=== PATIENT | male | born 1945 | race Caucasian/White ===

== ENCOUNTER 2017-07-17 13:31 | Emergency (ER) | payer MEDICARE, SELFPAY | END 2017-07-17 14:53 | disposition home or self-care (01) | PROVIDERS: Family Provider Family Medicine | DX: J06.9 Acute upper respiratory infection, unspecified (principal); Z87.891 Personal history of nicotine dependence; E11.9 Type 2 diabetes mellitus without complications | CPT/HCPCS: 87804 ==

== ENCOUNTER 2017-07-23 15:22 | Emergency (ER) | payer MEDICARE, SELFPAY ==
[2017-07-23 15:35] VITALS: BP 136/70; PULSE 69; RESP 18; TEMP 36.8; O2SAT 94; BMI 28.7
[2017-07-23 16:32] LABS: Basophils # 0.1 K/mm3 (0-0.2); Basophils % 0.8 % (0.1-2.0); Eosinophils # 0.3 K/mm3 (0.0-0.4); Eosinophils % 2.1 % (0.1-12.0); Hematocrit 52.3 % (42.0-52.0); Hemoglobin 16.6 g/dL (14.1-18.0); Lymphocytes # 2.4 K/mm3 (0.7-4.5); Lymphocytes % 15.4 K/mm3 (10-50); Mean Corpuscular HGB Conc 31.7 g/dL (31.8-35.4); Mean Corpuscular Hemoglobin 29.6 pg (27.0-31.2); Mean Corpuscular Volume 93.4 fl (80-94); Mean Platelet Volume 8.6 fl (7.4-10.4); Monocytes # 1.3 K/mm3 (0.1-1.0); Neutrophils # 11.4 K/mm3 (1.8-7.8); Neutrophils % 73.6 % (37.0-80.0); Platelet Count 284 K/mm3 (142-424); Red Blood Count 5.61 M/mm3 (4.60-6.20); Red Cell Distribution Width 13.8 % (11.5-17.5); White Blood Count 15.5 K/mm3 (4.8-10.8)
[2017-07-23 16:37] LABS: MANUAL DIFFERENTIAL MANUAL DIFFERENTIAL (MANUAL DIFF)
[2017-07-23 16:39] LABS: Anion Gap 12.2 mEq/L (5-15); Blood Urea Nitrogen 19 mg/dL (7-18); Carbon Dioxide 26 mmol/L (21.0-32.0); Chloride 106 mmol/L (98-107); Creatinine Clearance Estimated 74 mL/min (0-300); Creatinine,Serum 1.13 mg/dL (0.70-1.30); Estimated Glomerular Filt Rate > 60 ml/min (>60); GFR (African American) > 60 ML/MIN (>60); Glucose 89 mg/dL (74-106); Potassium 4.2 mmoL/L (3.5-5.1); Sodium 140 mmol/L (136-145)
[2017-07-23 16:41] VITALS: BP 128/74; PULSE 64; RESP 18; O2SAT 94
[2017-07-23 16:54] LABS: Lactic Acid 0.7 mmol/L (0.4-2.0)
[2017-07-23 16:58] LABS: Eosinophils % 2 % (0-3); Lymphocytes % 14 % (10-50); Monocytes % 5 % (2-9); Neutrophils % 70 % (42-76); Platelet Estimate Normal; RBC Morphology Normal; Total Cells Counted 100
--- NOTE | 2017-07-23 17:03 | HMH.EDGENADL ---
ED Disposition Clinical Impression: Gastroenteritis Disposition: Home, Self-Care Condition on Discharge: Fair Instructions: DI for Diarrhea and Traveler's Diarrhea -- Child, DI for Nausea -- Adult, DI for Nausea -- Child Additional Instructions: Advised to stay on just clear liquids for the next 24 to 48 hours Referrals: Neal Nicole MD [Primary Care Provider] - Time of Disposition: 20:39 - Critical Care Critical Care Time: No Attestation: On 07/23/17, the high probability of a clinically significant, sudden or life threatening deterioration of the following system(s) required my full and direct attention, intervention and personal management. The time I documented below is in addition to time spent performing reported procedures but includes the following listed in this critical care notation. Medical Decision Making - Medical Records Medical records reviewed: Yes: I reviewed the patient's medical records. Vital Signs: 07/23/17 15:35 07/23/17 16:41 07/23/17 19:33 Temperature 98.3 F Temperature Source Oral Pulse Rate [Brachial] 69 64 78 Respiratory Rate 18 18 18 Blood Pressure [Right Arm] 136/70 128/74 134/66 Blood Pressure Mean [Right Arm] 92 92 88 Blood Pressure Source [Right Arm] Automatic Cuff Automatic Cuff Automatic Cuff Blood Pressure Position [Right Arm] Supine Sitting Sitting 02 Sat by Pulse Oximetry 94 L 94 L 92 L Oxygen Delivery Method Room Air Room Air Room Air - Lab Data Lab results reviewed: Yes: I reviewed the patient's lab results. Lab Results 07/23/17 16:13: Lactic Acid 0.7 07/23/17 16:15: WBC 15.5 H, RBC 5.61, Hgb 16.6, Hct 52.3 H, MCV 93.4, MCH 29.6, MCHC 31.7 L, RDW 13.8, Plt Count 284, MPV 8.6, Neut % (Auto) 73.6, Lymph % (Auto) 15.4, [place] % (Auto) 8.0, Eos % (Auto) 2.1, Baso % (Auto) 0.8, Neut # (Auto) 11.4 H, Lymph # (Auto) 2.4, [place] # (Auto) 1.3 H, Eos # (Auto) 0.3, Baso # (Auto) 0.1, Total Counted 100, Neutrophils % (Manual) 70, Lymphocytes % (Manual) 14, Atypical Lymphs % 9.0, Monocytes % (Manual) 5, Eosinophils % (Manual) 2, Platelet Estimate Normal, RBC Morphology Normal 07/23/17 16:15: Sodium 140, Potassium 4.2, Chloride 106, Carbon Dioxide 26, Anion Gap 12.2, BUN 19 H, Creatinine 1.13, Estimated Creat Clear 74, Estimated GFR > 60, Est GFR ( Amer) > 60, Glucose 89 07/23/17 16:15: Total Bilirubin 0.3, Direct Bilirubin 0.1, AST 21, ALT 29, Alkaline Phosphatase 104, Total Protein 6.3 L, Albumin 3.2 L 07/23/17 17:30: Stl Aeromonas (PCR) Not detected, Stl C. cayetanensis PCR Not detected, Stool Rotavirus (PCR) Not detected, Stl Adenov F 40/41 PCR Not detected, Stool Astrovirus (PCR) Not detected, Stool Cryptosporidium PCR Not detected, Stl E.coli Shiga Tox PCR Not detected, Stool E coli O157 PCR Not detected, Stl Enterotoxigenic E PCR Not detected, Stool EPEC (PCR) Not detected, Stool EAEC (PCR) Not detected, Stl E. histolytica PCR Not detected, Stool Giardia Lamblia PCR Not detected, Stool Sapovirus (PCR) Detected A, Stl P. shigelloides PCR Not detected, Stl Shigella/EIEC PCR Not detected, St Y.enterocolitica PCR Not detected, Stool Vibrio (PCR) Not detected, Stl Vibrio cholerae PCR Not detected, Stl Norovirus GI/GII PCR Not detected, Campylobacter (PCR) Not detected, C. difficile (PCR) Not detected, Salmonella (PCR) Not detected Result diagrams: 07/23/17 16:15 07/23/17 16:15 Orders (Tests/Meds): ED MEDICATIONS Generic Name Dose Route Start Last Admin Trade Name Freq PRN Reason Stop Dose Admin Sodium Chloride 1,000 mls @ 500 mls/hr 07/23/17 17:15 07/23/17 17:18 Sod Chloride 0.9% 1000ml Bag IV 08/22/17 17:14 500 mls/hr .Q2H NAZ Administration Sodium Chloride 10 ml 07/23/17 15:56 Saline Flush 10ml Syringe IV 08/22/17 15:55 NEEDED PRN Maintain IV Site Discontinued Medications Generic Name Dose Route Start Last Admin Trade Name Freq PRN Reason Stop Dose Admin Ondansetron HCl 4 mg 07/23/17 17:09 07/23/17 17:33 Zofran 4mg
--- NOTE | 2017-07-23 17:07 | ED_ITS ---
ED Disposition Clinical Impression: Gastroenteritis Disposition: Home, Self-Care Condition on Discharge: Fair Instructions: DI for Diarrhea and Traveler's Diarrhea -- Child, DI for Nausea - - Adult, DI for Nausea -- Child Additional Instructions: Advised to stay on just clear liquids for the next 24 to 48 hours Referrals: Neal Nicole MD [Primary Care Provider] - Time of Disposition: 20:39 - Critical Care Critical Care Time: No Attestation: On 07/23/17, the high probability of a clinically significant, sudden or life threatening deterioration of the following system(s) required my full and direct attention, intervention and personal management. The time I documented below is in addition to time spent performing reported procedures but includes the following listed in this critical care notation. Medical Decision Making - Medical Records Medical records reviewed: Yes: I reviewed the patient's medical records. Vital Signs: 07/23/17 15:35 07/23/17 16:41 07/23/17 19:33 Temperature 98.3 F Temperature Source Oral Pulse Rate [Brachial] 69 64 78 Respiratory Rate 18 18 18 Blood Pressure [Right Arm] 136/70 128/74 134/66 Blood Pressure Mean [Right Arm] 92 92 88 Blood Pressure Source [Right Arm] Automatic Cuff Automatic Cuff Automatic Cuff Blood Pressure Position [Right Arm] Supine Sitting Sitting 02 Sat by Pulse Oximetry 94 L 94 L 92 L Oxygen Delivery Method Room Air Room Air Room Air - Lab Data Lab results reviewed: Yes: I reviewed the patient's lab results. Lab Results 07/23/17 16:13: Lactic Acid 0.7 07/23/17 16:15: WBC 15.5 H, RBC 5.61, Hgb 16.6, Hct 52.3 H, MCV 93.4, MCH 29.6, MCHC 31.7 L, RDW 13.8, Plt Count 284, MPV 8.6, Neut % (Auto) 73.6, Lymph % (Auto ) 15.4, [place] % (Auto) 8.0, Eos % (Auto) 2.1, Baso % (Auto) 0.8, Neut # (Auto) 11.4 H, Lymph # (Auto) 2.4, [place] # (Auto) 1.3 H, Eos # (Auto) 0.3, Baso # (Auto ) 0.1, Total Counted 100, Neutrophils % (Manual) 70, Lymphocytes % (Manual) 14, Atypical Lymphs % 9.0, Monocytes % (Manual) 5, Eosinophils % (Manual) 2, Platelet Estimate Normal, RBC Morphology Normal 07/23/17 16:15: Sodium 140, Potassium 4.2, Chloride 106, Carbon Dioxide 26, Anion Gap 12.2, BUN 19 H, Creatinine 1.13, Estimated Creat Clear 74, Estimated GFR > 60, Est GFR ( Amer) > 60, Glucose 89 07/23/17 16:15: Total Bilirubin 0.3, Direct Bilirubin 0.1, AST 21, ALT 29, Alkaline Phosphatase 104, Total Protein 6.3 L, Albumin 3.2 L 07/23/17 17:30: Stl Aeromonas (PCR) Not detected, Stl C. cayetanensis PCR Not detected, Stool Rotavirus (PCR) Not detected, Stl Adenov F 40/41 PCR Not detected, Stool Astrovirus (PCR) Not detected, Stool Cryptosporidium PCR Not detected, Stl E.coli Shiga Tox PCR Not detected, Stool E coli O157 PCR Not detected, Stl Enterotoxigenic E PCR Not detected, Stool EPEC (PCR) Not detected , Stool EAEC (PCR) Not detected, Stl E. histolytica PCR Not detected, Stool Giardia Lamblia PCR Not detected, Stool Sapovirus (PCR) Detected A, Stl P. shigelloides PCR Not detected, Stl Shigella/EIEC PCR Not detected, St Y.enterocolitica PCR Not detected, Stool Vibrio (PCR) Not detected, Stl Vibrio cholerae PCR Not detected, Stl Norovirus GI/GII PCR Not detected, Campylobacter (PCR) Not detected, C. difficile (PCR) Not detected, Salmonella (PCR) Not detected Result diagrams: 07/23/17 16:15 07/23/17 16:15 Orders (Tests/Meds): ED MEDICATIONS Generic Name Dose Route Start Last Admin Trade Name Freq PRN Reason Stop Dose Admin Sodium Chloride 1,
[2017-07-23 17:42] LABS: Adenovirus F 40/41, stool Not Detected (NotDetected); Astrovirus Not Detected (NotDetected); Campylobacter Not Detected (NotDetected); Clostridium Difficile A/B, PCR Not Detected (NotDetected); Cryptosporidium Not Detected (NotDetected); Cyclospora Cayetanesis Not Detected (NotDetected); Entamoeba histolytica Not Detected (NotDetected); Enteroaggregative E coli Not Detected (NotDetected); Enteropathogenic E coli Not Detected (NotDetected); Enterotoxigenic E coli Not Detected (NotDetected); Giardia lamblia Not Detected (NotDetected); Norovirus Not Detected (NotDetected); Plesimonas Shigalloides, PCR Not Detected (NotDetected); Rotavirus A Not Detected (NotDetected); Salmonella, PCR Not Detected (NotDetected); Shiga-like toxin E coli Not Detected (NotDetected); Shigella Enterovasive E coli Not Detected (NotDetected); Vibrio Cholerae Not Detected (NotDetected); Vibrio, PCR Not Detected (NotDetected); Yersinia Entercolitica, PCR Not Detected (NotDetected)
[2017-07-23 17:52] LABS: Alanine Aminotransferase 29 U/L (12-78); Albumin Level 3.2 gm/dL (3.4-5.0); Alkaline Phosphatase 104 U/L (46-116); Aspartate Amino Transferase 21 U/L (15-37); Bilirubin,Direct 0.1 mg/dL (0.0-0.2); Bilirubin,Total 0.3 mg/dL (0.2-1.0); Total Protein,Serum 6.3 gm/dL (6.4-8.2)
[2017-07-23 19:33] VITALS: BP 134/66; PULSE 78; RESP 18; O2SAT 92
[2017-07-23 19:34] LABS: Sapovirus Detected (NotDetected)
[2017-07-23 21:25] VITALS: BP 128/74; PULSE 66; RESP 20; O2SAT 95
== END 2017-07-23 21:29 | disposition home or self-care (01) ==
PROVIDERS: Emergency Provider General Practice; Family Provider Family Medicine; PCP Family Medicine
DX: A08.4 Viral intestinal infection, unspecified (principal); E11.9 Type 2 diabetes mellitus without complications; Z79.84 Long term (current) use of oral hypoglycemic drugs
CPT/HCPCS: 80048; 80076; 83605; 85007; 85025; 87040; 87507; 96360; 96361; 96365; 96375; 99284; J2405

== ENCOUNTER → 2017-07-26 16:16 | Outpatient (CLI) | payer MEDICARE, SELFPAY ==
--- NOTE | 2017-07-26 16:31 | XR_ITS ---
XR chest 2V HISTORY: ITS.REASON: BRONCHITIS ORDERING PHYSICIAN: Neal Nicole MD PATIENT AGE: 72 years COMPARISON: None 191 FINDINGS: Normal heart size. There is increased density at the region of the azygos node more prominent than when compared to the previous exam and could reflect changes of hypervolemia. Enlarged azygous lymph node is also a consideration. There are chronic changes in the left lung base. Chronic coarsening of the bronchovascular markings suggesting chronic bronchitis. No lobar consolidation or collapse. No acute bony anomalies. IMPRESSION: 1. Suspect chronic bronchitis. 2. Increasing prominence of the azygos region which could be related to prominent azygos vein or enlarged lymph node. Consider follow-up chest x-ray to confirm stability. If this persists then, CT may be needed for further evaluation
== END ==
PROVIDERS: PCP Family Medicine; Visit Provider Family Medicine
DX: J40 Bronchitis, not specified as acute or chronic (principal)
CPT/HCPCS: 71046; 93005

== ENCOUNTER 2017-07-27 15:50 | Observation (INO) | payer MEDICARE, SELFPAY ==
[2017-07-27 16:09] VITALS: BMI 30.4
[2017-07-27 16:52] VITALS: BP 138/89; PULSE 73; RESP 18; TEMP 36.8; O2SAT 94; BMI 30.4
--- NOTE | 2017-07-27 16:54 | PC.NURSE ---
Addendum entered by Zari Manzo CNA 07/27/17 16:55: Original Note: nurse was in room at the time of being offered berta hose, non- skid socks and hospital gown. patient refused everything.
--- NOTE | 2017-07-27 17:54 | CT_ITS ---
CT chest wo con HISTORY: ITS.REASON: BRONCHITIS, HYPOXIA ORDERING PHYSICIAN: Neal Nicole MD PATIENT AGE: 72 years TECHNIQUE: Axial images obtained. Sagittal and coronal reformatted images are also generated and reviewed. CONTRAST: None COMPARISON: None FINDINGS: No mediastinal or hilar mass evident. There is mild enlargement of the thyroid gland nonspecific. On the radiograph there was a question of adenopathy in the azygos region. There are a few small lymph nodes in the right hilum but no dominant adenopathy. Radiographic abnormality likely reflective of the overlying azygos vein. Normal heart size. There are coronary artery calcifications. There is mild thickening of the distal esophagus which is nonspecific. There is mild bronchial thickening. No lobar consolidation or collapse is evident. No effusions. There are scattered nodular opacities present one in the right upper lobe centrally 5 mm, left upper lobe anteriorly at 4 mm, superior segment left lower lobe 5 mm, subpleural region along the major fissure on the left laterally at 4 mm. Minimal atelectatic or fibrotic changes are present in the left lung base. No central venous lesions. No acute bony anomalies. Upper abdominal images are unremarkable. IMPRESSION: 1. No acute finding. 2. Bronchial thickening with mild coarsening of the bronchovascular markings consistent with bronchitis. 3. Scattered nonspecific small pulmonary nodular opacities which are less than 6 mm. Suggest 6 month follow-up.
[2017-07-27 18:24] LABS: Adenovirus,PCR Not Detected (NotDetected); Bordetella Pertussis Not Detected (NotDetected); Chlamydophila Pneumoniae, PCR Not Detected (NotDetected); Coronavirus 229E Not Detected (NotDetected); Coronavirus NL63 Not Detected (NotDetected); Coronavirus OC43 Not Detected (NotDetected); Coronovirus HKU1,PCR Not Detected (NotDetected); Human Metapneumovirus Not Detected (NotDetected); Influenza A, PCR Not Detected (NotDetected); Influenza AH1, 2009 Not Detected (NotDetected); Influenza AH1, PCR Not Detected (NotDetected); Influenza AH3,PCR Not Detected (NotDetected); Influenza B, PCR Not Detected (NotDetected); Mycoplasma Pneumoniae, PCR Not Detected (NotDected); Parainfluenza 1, PCR Not Detected (NotDetected); Parainfluenza 2, PCR Not Detected (NotDetected); Parainfluenza 3, PCR Not Detected (NotDetected); Parainfluenza 4, PCR Not Detected (NotDetected); Respiratory Syncytial Virus Not Detected (NotDetected); Rhinovirus/Enterovirus Not Detected (NotDetected)
[2017-07-27 18:36] LABS: Alanine Aminotransferase 25 U/L (12-78); Albumin Level 3.5 gm/dL (3.4-5.0); Albumin/Globulin Ratio 0.9 (1.1-1.8); Alkaline Phosphatase 107 U/L (46-116); Anion Gap 10.2 mEq/L (5-15); Aspartate Amino Transferase 21 U/L (15-37); Bilirubin,Total 0.4 mg/dL (0.2-1.0); Blood Urea Nitrogen 11 mg/dL (7-18); Calcium 9.1 mg/dL (8.5-10.1); Carbon Dioxide 32 mmol/L (21.0-32.0); Chloride 103 mmol/L (98-107); Creatinine Clearance Estimated 67 mL/min (0-300); Creatinine,Serum 1.32 mg/dL (0.70-1.30); Estimated Glomerular Filt Rate 54 ml/min (>60); GFR (African American) 65 ML/MIN (>60); Globulin 3.9 gm/dl (1.3-3.2); Glucose 112 mg/dL (74-106); Potassium 4.2 mmoL/L (3.5-5.1); Sodium 141 mmol/L (136-145); Total Protein,Serum 7.4 gm/dL (6.4-8.2)
--- NOTE | 2017-07-27 19:24 | PC.NURSE ---
hand off report given to jovany pierce rn
[2017-07-27 20:00] VITALS: O2SAT 95
[2017-07-27 20:30] VITALS: BP 122/70; PULSE 74; RESP 20; TEMP 36.6; O2SAT 94
[2017-07-27 21:34] LABS: POC Glucose,Bedside 132 mg/dL
--- NOTE | 2017-07-28 03:33 | PC.NURSE ---
PATIENT IS PLEASANT AND EASY TO CARE FOR. SCATTERED WHEEZES NOTED, MOSTLY IN RIGHT LOBE. PATIENT C/O BURNING IN THROAT EVERY TIME SOMETHING IS SWALLOWED. STATED WHEN HE TOOK HIS MEDICINE HE COULD FEEL IT BURN ALL THE WAY TO HIS STOMACH. PATIENT REFUSED TO CHANGE INTO HOSPITAL GOWN AND REFUSED BELEM HOSE. IV PATENT @ 125/HR UP TO BR TOLERATED. VSS, NO ACUTE CHANGES.. AT BEDSIDE. WILL CONTINUE TO MONITOR
[2017-07-28 04:00] VITALS: BP 101/66; PULSE 71; RESP 18; TEMP 36.3; O2SAT 94
--- NOTE | 2017-07-28 06:41 | PC.NURSE ---
PT REFUSED A ABTH. NURSE NOTIFIED
[2017-07-28 07:06] LABS: POC Glucose,Bedside 142 mg/dL
--- NOTE | 2017-07-28 07:50 | HMH.PHAVTE ---
[facility] Pharmacy VTE Monitoring - Patient Demographics Admission date: 07/27/17 Report Date: 07/28/17 Time: 07:50 Allergies/Adverse Reactions: cephalexin [CEPHALEXIN] Allergy (Unknown, Verified 07/23/17 21:18) NA-DIZZINESS sulfamethoxazole [From BACTRIM] Allergy (Unknown, Verified 07/23/17 21:18) NA-DIZZINESS trimethoprim [From BACTRIM] Allergy (Unknown, Verified 07/23/17 21:18) NA-DIZZINESS topiramate [From Topamax] Adverse Reaction (Severe, Verified 07/27/17 16:08) Chest Pain carbamazepine [From Tegretol] Adverse Reaction (Intermediate, Verified 07/27/17 16:08) Flushing clarithromycin [From Biaxin] Adverse Reaction (Intermediate, Verified 07/27/17 16:08) Gastrointestinal Upset Height: 1.73 m Weight: 878.608 kg - VTE Risk Labs: VTE Related Lab Results BUN 11 mg/dL (7-18) 07/27/17 18:13 Creatinine 1.32 mg/dL (0.70-1.30) H 07/27/17 18:13 Estimated Creat Clear 67 mL/min (0-300) 07/27/17 18:13 Was VTE Risk Assessment Performed: Yes VTE Score: 2 VTE Risk Level: Very Low Risk - Prophylaxis VTE Prophylaxis Ordered?: Yes Types of VTE Prophylaxis: TEDS Thigh High Location of Applied Device: Bilateral Lower Extremeties - VTE Diagnosis Confirmed Treatment or plan recommended: Continue Current Treatment
[2017-07-28 08:00] VITALS: BP 121/67; PULSE 69; RESP 16; TEMP 36.4; O2SAT 92
--- NOTE | 2017-07-28 09:06 | HMH.ACPN ---
Internal Medicine - PN: Subj *Date: 07/28/17 *Time: 09:24 Interval history: Mr. Coburn is a 72yo male who went to urgent care on 07/17/17, with respiratory sxs. Flu screen was negative. He was treated with Prednisone 20mg bid for 5 days (without taper), and Z-pack. Pt has had no improvement in his cough. He was then started on cefdinir and was using symbicort. He continued to get worse. He had a low grade fever in the office. His WBC was elevated He was c/o chest pain and shortness of breath. He was directly admitted for further evaluation and treatment. See H&P from the office. Today he is feeling better. Less SOA and cough. Slept off and on and was able to eat this am. Is C/O some burning in his chest when he eats. ADDENDUM: Note CT: c/w bronchitis, some small pulmonary nodules with suggested recheck in 6 months. Will also check cardiac enzymes, echocardiogram with persistant SOA. [facility] Exam Vital signs and Labs for Last 24 Hours: Temp Pulse Resp BP Pulse Ox 97.3 F L 71 18 101/66 94 L 07/28/17 04:00 07/28/17 04:00 07/28/17 04:00 07/28/17 04:00 07/28/17 04:00 Laboratory Results - last 24 hr 07/27/17 18:13: Sodium 141, Potassium 4.2, Chloride 103, Carbon Dioxide 32, Anion Gap 10.2, BUN 11, Creatinine 1.32 H, Estimated Creat Clear 67, Estimated GFR 54 L, Est GFR ( Amer) 65, Glucose 112 H, Calcium 9.1, Total Bilirubin 0.4, AST 21, ALT 25, Alkaline Phosphatase 107, Total Protein 7.4, Albumin 3.5, Globulin 3.9 H, Albumin/Globulin Ratio 0.9 L 07/27/17 18:13: Chlamy pneumoniae PCR Not detected, Adenovirus (PCR) Not detected, B.parapertussis DNA PCR Not detected, Coronavirus OC43 (PCR) Not detected, Coronavirus HKU1 (PCR) Not detected, Coronavirus 229E (PCR) Not detected, Coronavirus NL63 (PCR) Not detected, Human Metapneumovir PCR Not detected, Influenza A (H1) PCR Not detected, Influ A (H1N1/09) PCR Not detected, Influenza A (H3) PCR Not detected, Influenza Type A (PCR) Not detected, Influenza Type B (PCR) Not detected, M. pneumoniae (PCR) Not detected, Parainfluenza 1 (PCR) Not detected, Parainfluenza 2 (PCR) Not detected, Parainfluenza 3 (PCR) Not detected, Parainfluenza 4 (PCR) Not detected, RSV (PCR) Not detected, Entero/Rhino (PCR) Not detected 07/27/17 20:45: POC Glucose 132 07/28/17 06:22: POC Glucose 142 I & O for Last 24 hours: Intake & Output 07/25/17 07/26/17 07/27/17 07/28/17 11:59 11:59 11:59 11:59 Intake Total 2253 / 2253 Balance 2253 / 2253 - Constitutional no acute distress - *Routine Respiratory Exam Present: CTA bilaterally - *Routine Cardiovascular Exam Present: RRR - *Routine Abdominal Exam Present: soft, normoactive bowel sounds. Absent: tenderness - *Routine Extremities Exam Absent: edema Assessment and Plan (1) Bronchitis Current visit: Yes Status: Acute Category: Medical Code(s): J40 - Bronchitis, not specified as acute or chronic (2) COPD exacerbation Current visit: Yes Status: Acute Category: Medical Code(s): J44.1 - Chronic obstructive pulmonary disease with (acute) exacerbation (3) Type 2 diabetes mellitus Current visit: Yes Status: Acute Category: Medical Code(s): E11.9 - Type 2 diabetes mellitus without complications - Assessment and plan all Dx Assessment and Plan for all problems:: Pt was admitted and started on abx and steroids. He is better this am. Will discuss further care with Dr. Nicole.
--- NOTE | 2017-07-28 09:10 | P.PN_ITS ---
Internal Medicine - PN: Subj *Date: 07/28/17 *Time: 09:24 Interval history: Mr. Coburn is a 72yo male who went to urgent care on 07/17/17, with respiratory sxs. Flu screen was negative. He was treated with Prednisone 20mg bid for 5 days (without taper), and Z-pack. Pt has had no improvement in his cough. He was then started on cefdinir and was using symbicort. He continued to get worse. He had a low grade fever in the office. His WBC was elevated He was c/o chest pain and shortness of breath. He was directly admitted for further evaluation and treatment. See H&P from the office. Today he is feeling better. Less SOA and cough. Slept off and on and was able to eat this am. Is C/O some burning in his chest when he eats. ADDENDUM: Note CT: c/w bronchitis, some small pulmonary nodules with suggested recheck in 6 months. Will also check cardiac enzymes, echocardiogram with persistant SOA. [facility] Exam Vital signs and Labs for Last 24 Hours: Temp Pulse Resp BP Pulse Ox 97.3 F L 71 18 101/66 94 L 07/28/17 04:00 07/28/17 04:00 07/28/17 04:00 07/28/17 04:00 07/28/17 04:00 Laboratory Results - last 24 hr 07/27/17 18:13: Sodium 141, Potassium 4.2, Chloride 103, Carbon Dioxide 32, Anion Gap 10.2, BUN 11, Creatinine 1.32 H, Estimated Creat Clear 67, Estimated GFR 54 L, Est GFR ( Amer) 65, Glucose 112 H, Calcium 9.1, Total Bilirubin 0.4, AST 21, ALT 25, Alkaline Phosphatase 107, Total Protein 7.4, Albumin 3.5, Globulin 3.9 H, Albumin/Globulin Ratio 0.9 L 07/27/17 18:13: Chlamy pneumoniae PCR Not detected, Adenovirus (PCR) Not detected, B.parapertussis DNA PCR Not detected, Coronavirus OC43 (PCR) Not detected, Coronavirus HKU1 (PCR) Not detected, Coronavirus 229E (PCR) Not detected, Coronavirus NL63 (PCR) Not detected, Human Metapneumovir PCR Not detected, Influenza A (H1) PCR Not detected, Influ A (H1N1/09) PCR Not detected , Influenza A (H3) PCR Not detected, Influenza Type A (PCR) Not detected, Influenza Type B (PCR) Not detected, M. pneumoniae (PCR) Not detected, Parainfluenza 1 (PCR) Not detected, Parainfluenza 2 (PCR) Not detected, Parainfluenza 3 (PCR) Not detected, Parainfluenza 4 (PCR) Not detected, RSV (PCR ) Not detected, Entero/Rhino (PCR) Not detected 07/27/17 20:45: POC Glucose 132 07/28/17 06:22: POC Glucose 142 I & O for Last 24 hours: Intake & Output 07/25/17 07/26/17 07/27/17 07/28/17 11:59 11:59 11:59 11:59 Intake Total 2253 / 2253 Balance 2253 / 2253 - Constitutional no acute distress - *Routine Respiratory Exam Present: CTA bilaterally - *Routine Cardiovascular Exam Present: RRR - *Routine Abdominal Exam Present: soft, normoactive bowel sounds. Absent: tenderness - *Routine Extremities Exam Absent: edema Assessment and Plan (1) Bronchitis Current visit: Yes Status: Acute Category: Medical Code(s): J40 - Bronchitis, not specified as acute or chronic (2) COPD exacerbation Current visit: Yes Status: Acute Category: Medical Code(s): J44.1 - Chronic obstructive pulmonary disease with (acute) exacerbation (3) Type 2 diabetes mellitus Current visit: Yes Status: Acute Category: Medical Code(s): E11.9 - Type 2 diabetes mellitus without complications - Assessment and plan all Dx Assessment and Plan for all problems:: Pt was admitted and started on abx and steroids. He is better this am. Will discuss further care with Dr. Nicole.
--- NOTE | 2017-07-28 09:27 | CA_ITS ---
PROCEDURE: 2-D M-mode and color Doppler study INDICATIONS FOR THE TEST: Chest pain + COPD+ Heart Murmur Tobacco Smoking Palpitations Fatigue Syncope Edema Hypertension Diabetes Mellitus+ Rheumatic Fever SOB MACARIO+Obesity Hyperlipidemia Family History HD Additional History PATIENT INFORMATION HEIGHT:68 WEIGHT:180 GENDER: Male B/P:101/66 2-D/M-MODE INTERPRETATION: 2-D MEASUREMENTS OBSERVED VALUES IN CMS Right Ventricular Dimension (RVDd) 2.8 Interventricular Septum (Thickness)(IVsd) 1.0 Left Ventricular Internal Dimensions(LVIDd) 4.5 Left Ventricular Posterior Wall (Thickness)(LVPW 0.9 Aortic Root 3.7 Aortic Cusp Separation 2.4 Left Atrial Dimensions (LAD) 3.5 2D 1. Left atrium is mildly enlarged, left ventricle is normal size, there is mild concentric left ventricular hypertrophy present, visually estimated ejection fraction 55% with no obvious regional wall motion abnormality. 2. The right atrium and right ventricle are mildly enlarged with normal contractility. 3. The aortic valve is minimally thickened and fibrosed. 4. The mitral and tricuspid valve leaflets are minimally thickened. 5. The pulmonic valve is poorly visualized 6. No significant pericardial effusion noted. DOPPLER INTERROGATION: Doppler interrogation of the aortic, mitral and tricuspid valve reveals presence of mild mitral and tricuspid regurgitation, tricuspid regurgitant jet velocity is insufficient for calculation of the right ventricular systolic pressure, grade 1 diastolic dysfunction seen without tissue Doppler evidence of raised left atrial pressure. CONCLUSION: 1. Mildly enlarged left atrium, normal left ventricular size, mild concentric left ventricular hypertrophy, visually estimated ejection fraction of 55% with no obvious regional wall motion abnormality, grade 1 diastolic dysfunction seen without tissue Doppler evidence of raised left atrial pressure. 2. Mildly enlarged right ventricle with normal contractility. 3. Mild mitral and tricuspid regurgitation. 4. No significant pericardial effusion noted.
[2017-07-28 10:03] LABS: Anion Gap 9.7 mEq/L (5-15); Blood Urea Nitrogen 13 mg/dL (7-18); Carbon Dioxide 27 mmol/L (21.0-32.0); Chloride 107 mmol/L (98-107); Creatinine Clearance Estimated 57 mL/min (0-300); Creatinine,Serum 1.16 mg/dL (0.70-1.30); Estimated Glomerular Filt Rate 62 ml/min (>60); GFR (African American) 75 ML/MIN (>60); Glucose 164 mg/dL (74-106); Potassium 4.7 mmoL/L (3.5-5.1); Sodium 139 mmol/L (136-145)
[2017-07-28 13:02] LABS: CKMB Relative Index 2.6 U/L (0-4.0); Creatine Kinase 124 U/L (39-308); Creatine Kinase MB 3.2 mg/ml (0.0-3.6); Troponin I < 0.02 ng/ml (0.00-0.06)
[2017-07-28 16:00] VITALS: BP 118/62; PULSE 68; RESP 16; TEMP 36.5; O2SAT 93
--- NOTE | 2017-07-28 18:04 | PC.NURSE ---
pt stable. reports wanting to go home. few wheezes noted.
[2017-07-28 18:28] LABS: POC Glucose,Bedside 185 mg/dL
--- NOTE | 2017-07-28 19:17 | PC.NURSE ---
Addendum entered by Amrita Gusman RN 07/28/17 19:18: ordered [facility] Original Note: dr perez asks to change primidone dose to 25mg (lower dose) bid
--- NOTE | 2017-07-28 19:22 | PC.NURSE ---
pt wishes to have IV saline locked
[2017-07-28 20:00] VITALS: BP 124/63; PULSE 71; RESP 18; TEMP 36.6; O2SAT 93
[2017-07-28 20:20] VITALS: PULSE 67; PULSE 74
[2017-07-29 01:52] LABS: POC Glucose,Bedside 135 mg/dL
--- NOTE | 2017-07-29 03:17 | PC.NURSE ---
PT DENIES PAIN OR SOB THIS SHIFT. AMBULATES WELL TO BR. TOLERATING RA WELL. [employer]ATION. BS ACTIVE IN ALL 4 QAUDS. A&OX3. NO ACUTE DISTRESS NOTED. MARILEE CONTINUE TO MONITOR.
[2017-07-29 04:00] VITALS: BP 121/54; PULSE 67; RESP 20; TEMP 36.4; O2SAT 99
[2017-07-29 06:25] VITALS: PULSE 63; PULSE 68; O2SAT 93
[2017-07-29 06:41] LABS: Basophils % 0.1 % (0.1-2.0); Eosinophils % 0.2 % (0.1-12.0); Hematocrit 44.3 % (42.0-52.0); Hemoglobin 14.5 g/dL (14.1-18.0); Lymphocytes # 1.6 K/mm3 (0.7-4.5); Lymphocytes % 7.6 K/mm3 (10-50); Mean Corpuscular HGB Conc 32.6 g/dL (31.8-35.4); Mean Corpuscular Hemoglobin 29.8 pg (27.0-31.2); Mean Corpuscular Volume 91.4 fl (80-94); Mean Platelet Volume 9.2 fl (7.4-10.4); Monocytes # 0.7 K/mm3 (0.1-1.0); Monocytes % 3.5 % (1.7-9.3); Neutrophils # 18.3 K/mm3 (1.8-7.8); Neutrophils % 88.6 % (37.0-80.0); Platelet Count 259 K/mm3 (142-424); Red Blood Count 4.85 M/mm3 (4.60-6.20); Red Cell Distribution Width 13.5 % (11.5-17.5); White Blood Count 20.6 K/mm3 (4.8-10.8)
[2017-07-29 06:57] LABS: Anion Gap 10.8 mEq/L (5-15); Blood Urea Nitrogen 17 mg/dL (7-18); Carbon Dioxide 27 mmol/L (21.0-32.0); Chloride 108 mmol/L (98-107); Creatinine Clearance Estimated 59 mL/min (0-300); Creatinine,Serum 1.12 mg/dL (0.70-1.30); Estimated Glomerular Filt Rate 65 ml/min (>60); GFR (African American) 78 ML/MIN (>60); Glucose 144 mg/dL (74-106); Potassium 4.8 mmoL/L (3.5-5.1); Sodium 141 mmol/L (136-145)
[2017-07-29 07:02] LABS: MANUAL DIFFERENTIAL MANUAL DIFFERENTIAL (MANUAL DIFF)
[2017-07-29 08:00] VITALS: BP 121/60; PULSE 77; RESP 18; TEMP 36.4; O2SAT 93; O2SAT 96
--- NOTE | 2017-07-29 08:03 | PC.NURSE ---
REPORT GIVEN TO A BOUT, RN
[2017-07-29 08:35] LABS: Lymphocytes % 5 % (10-50); Monocytes % 4 % (2-9); Neutrophils % 86 % (42-76); Total Cells Counted 100
[2017-07-29 08:36] LABS: Platelet Estimate Normal
--- NOTE | 2017-07-29 08:45 | XR_ITS ---
XR chest 2V HISTORY: ITS.REASON: Bronchitis ORDERING PHYSICIAN: Neal Nicole MD PATIENT AGE: 72 years COMPARISON: 07/26/2017 FINDINGS: The cardiomediastinal silhouette and pulmonary vascularity are within normal limits. No lobar consolidation or collapse evident. There is coarsening of the bronchovascular markings as before consistent with peribronchial inflammatory change/bronchitis. Mild prominence of the azygos vein as before.. No acute bony abnormalities. IMPRESSION: Overall no change in the appearance of bronchitis without lobar consolidation or collapse
--- NOTE | 2017-07-29 09:29 | P.PN_ITS ---
Internal Medicine - PN: Subj *Date: 07/29/17 *Time: 09:25 Interval history: He states that he feels well and very much wants to go home. Rested well. He says he is breathing better. Sugar was elevated this morning as was his white blood cell count. The prednisone has probably accounted for some of this. He has bilateral rales to mid field. He has no leg edema. X-ray will be rechecked. Exam Vital signs and Labs for Last 24 Hours: Temp Pulse Resp BP Pulse Ox 97.5 F L 77 18 121/60 93 L 07/29/17 08:00 07/29/17 08:00 07/29/17 08:00 07/29/17 08:00 07/29/17 08:00 Laboratory Results - last 24 hr 07/28/17 09:33: Sodium 139, Potassium 4.7, Chloride 107, Carbon Dioxide 27, Anion Gap 9.7, BUN 13, Creatinine 1.16, Estimated Creat Clear 57, Estimated GFR 62, Est GFR ( Amer) 75, Glucose 164 H D 07/28/17 09:33: Total Creatine Kinase 124, CK-MB (CK-2) 3.2, CK-MB (CK-2) Rel Index 2.6, Troponin I < 0.02 07/28/17 16:39: POC Glucose 185 07/28/17 21:43: POC Glucose 135 07/29/17 06:05: Sodium 141, Potassium 4.8, Chloride 108 H, Carbon Dioxide 27, Anion Gap 10.8, BUN 17 D, Creatinine 1.12, Estimated Creat Clear 59, Estimated GFR 65, Est GFR ( Amer) 78, Glucose 144 H 07/29/17 06:05: WBC 20.6 H*, RBC 4.85, Hgb 14.5, Hct 44.3, MCV 91.4, MCH 29.8, MCHC 32.6, RDW 13.5, Plt Count 259, MPV 9.2, Neut % (Auto) 88.6 H, Lymph % (Auto ) 7.6 L, [place] % (Auto) 3.5, Eos % (Auto) 0.2, Baso % (Auto) 0.1, Neut # (Auto) 18.3 H, Lymph # (Auto) 1.6, [place] # (Auto) 0.7, Eos # (Auto) 0.0, Baso # (Auto) 0.0, Total Counted 100, Neutrophils % (Manual) 86 H, Band Neutrophils % 5.0, Lymphocytes % (Manual) 5 L, Monocytes % (Manual) 4, Platelet Estimate Normal Laboratory Tests 07/27/17 07/28/17 07/29/17 18:13 09:33 06:05 WBC Glucose 112 H 164 H D 144 H 07/29/17 06:05 WBC 20.6 H* Glucose I & O for Last 24 hours: Intake & Output 07/26/17 07/27/17 07/28/17 07/29/17 11:59 11:59 11:59 11:59 Intake Total 2733 / 2733 1889 / 189 Balance 2733 / 2733 1889 / 1889 Weight 1937 lb - Constitutional no acute distress - *Routine HEENT Exam Head: Present: normocephalic (Color seems better.) Eye: Present: PERRL ENT: Present: mucous membranes moist - *Routine Respiratory Exam Comments: Bilateral rales to mid lung ordoñez. - *Routine Cardiovascular Exam Present: RRR - *Routine Abdominal Exam Present: soft - *Routine Extremities Exam Comments: No edema Assessment and Plan (1) Bronchitis Current visit: Yes Status: Acute Category: Medical Code(s): J40 - Bronchitis, not specified as acute or chronic (2) COPD exacerbation Current visit: Yes Status: Acute Category: Medical Code(s): J44.1 - Chronic obstructive pulmonary disease with (acute) exacerbation (3) Type 2 diabetes mellitus Current visit: Yes Status: Acute Category: Medical Code(s): E11.9 - Type 2 diabetes mellitus without complications - Assessment and plan all Dx Assessment and Plan for all problems:: The lab work looks good except for the elevated white count and sugar. Chest x- ray be repeated.
--- NOTE | 2017-07-29 15:09 | SW/DCPLANNER ---
Received order for this patient to have a home nebulizer machine. Patient information was faxed to [facility] in [place]. I have spoke with Charlie to confirm patient information was received and patient has already picked up neb machine.
[2017-07-29 17:05] LABS: POC Glucose,Bedside 171 mg/dL
[2017-07-30 02:03] LABS: POC Glucose,Bedside 140 mg/dL
--- NOTE | 2017-08-01 21:23 | HMH.DCSUM ---
General - General Admission date: 07/27/17 Discharge date: 07/29/17 HPI HPI: Mr. Coburn is a 72yo male who went to urgent care on 07/17/17, with respiratory sxs. Flu screen was negative. He was treated with Prednisone 20mg bid for 5 days (without taper), and Z-pack. Pt has had no improvement in his cough. He was then started on cefdinir and was using symbicort. He continued to get worse. He had a low grade fever in the office. His WBC was elevated He was c/o chest pain and shortness of breath. He was directly admitted for further evaluation and treatment. Objective Vital signs: Temp Pulse Resp BP Pulse Ox 97.5 F L 77 18 121/60 96 07/29/17 08:00 07/29/17 08:00 07/29/17 08:00 07/29/17 08:00 07/29/17 08:00 Narrative: - Constitutional no acute distress - *Routine Respiratory Exam Present: CTA bilaterally - *Routine Cardiovascular Exam Present: RRR - *Routine Abdominal Exam Present: soft, normoactive bowel sounds. Absent: tenderness - *Routine Extremities Exam Absent: edema Hospital Course Hospital Course: The patient was started on abx and steroids. By the next day he was feeling better. CT of the chest was c/w bronchitis, some small pulmonary nodules with suggested recheck in 6 months. He had an echo showing and EF of 55%. He had a repeat CXR showing no change in his bronchitis. He was clinically better and was stable to be discharged home on abx. DS: Diagnosis - Discharge Diagnosis (1) Bronchitis Status: Acute (2) COPD exacerbation Status: Acute (3) Type 2 diabetes mellitus Status: Acute Meds Home Medications Medication Instructions Recorded Confirmed Type Aspirin [Aspir 81] 81 mg PO DAILY 07/23/17 07/27/17 History Gabapentin [Gabapentin 300mg Cap] 300 mg PO TID 07/23/17 07/27/17 History Hydroxychloroquine Sulfate 200 mg PO BID 07/23/17 07/27/17 History [Plaquenil] Metformin HCl [Metformin HCl ER] 500 mg PO DAILY 07/23/17 07/27/17 History Cefdinir [Omnicef 300mg Capsule] 300 mg PO BID 07/27/17 07/27/17 History Primidone [Mysoline] 50 mg PO BID 07/27/17 07/27/17 History Symbicort 160-4.5 Mcg Inhaler 1 inhalation INHALATION BID 07/27/17 07/27/17 History Allergies Allergy/AdvReac Type Severity Reaction Status Date / Time cephalexin [CEPHALEXIN] Allergy Unknown NA-DIZZINES Verified 07/23/17 21:18 S sulfamethoxazole Allergy Unknown NA-DIZZINES Verified 07/23/17 21:18 [From BACTRIM] S trimethoprim [From BACTRIM] Allergy Unknown NA-DIZZINES Verified 07/23/17 21:18 S topiramate [From Topamax] AdvReac Severe Chest Pain Verified 07/27/17 16:08 carbamazepine [From Tegretol] AdvReac Intermediate Flushing Verified 07/27/17 16:08 clarithromycin [From Biaxin] AdvReac Intermediate Gastrointestinal Verified 07/27/17 16:08 Upset Discharge Plan - Patient Discharge Instructions Additional Instructions: Needs nebulizer. Also needs Prednisone 10mg daily. Patient Instructions: Type 2 Diabetes - Follow up Plan Follow up with: Brooke Nicole MD [Primary Care Provider] - Disposition: Home, Self-Detention Medications: Home Medications Medication Instructions Recorded Confirmed Type Aspirin [Aspir 81] 81 mg PO DAILY 07/23/17 07/27/17 History Gabapentin [Gabapentin 300mg Cap] 300 mg PO TID 07/23/17 07/27/17 History Hydroxychloroquine Sulfate 200 mg PO BID 07/23/17 07/27/17 History [Plaquenil] Metformin HCl [Metformin HCl ER] 500 mg PO DAILY 07/23/17 07/27/17 History Cefdinir [Omnicef 300mg Capsule] 300 mg PO BID 07/27/17 07/27/17 History Primidone [Mysoline] 50 mg PO BID 07/27/17 07/27/17 History Symbicort 160-4.5 Mcg Inhaler 1 inhalation INHALATION BID 07/27/17 07/27/17 History Prescriptions/Medication Reconciliation: New Ipratropium/Albuterol Sulfate [Duoneb 3mL neb] 3 ml IH TIDRT #90 ampul.neb predniSONE [Deltasone 10mg tablet] 10 mg PO DAILY 30 Days #30 tab Continue Metformin HCl [Metformi
--- NOTE | 2017-08-01 21:26 | P.DS_ITS ---
General - General Admission date: 07/27/17 Discharge date: 07/29/17 HPI HPI: Mr. Coburn is a 72yo male who went to urgent care on 07/17/17, with respiratory sxs. Flu screen was negative. He was treated with Prednisone 20mg bid for 5 days (without taper), and Z-pack. Pt has had no improvement in his cough. He was then started on cefdinir and was using symbicort. He continued to get worse. He had a low grade fever in the office. His WBC was elevated He was c/o chest pain and shortness of breath. He was directly admitted for further evaluation and treatment. Objective Vital signs: Temp Pulse Resp BP Pulse Ox 97.5 F L 77 18 121/60 96 07/29/17 08:00 07/29/17 08:00 07/29/17 08:00 07/29/17 08:00 07/29/17 08:00 Narrative: - Constitutional no acute distress - *Routine Respiratory Exam Present: CTA bilaterally - *Routine Cardiovascular Exam Present: RRR - *Routine Abdominal Exam Present: soft, normoactive bowel sounds. Absent: tenderness - *Routine Extremities Exam Absent: edema Hospital Course Hospital Course: The patient was started on abx and steroids. By the next day he was feeling better. CT of the chest was c/w bronchitis, some small pulmonary nodules with suggested recheck in 6 months. He had an echo showing and EF of 55%. He had a repeat CXR showing no change in his bronchitis. He was clinically better and was stable to be discharged home on abx. DS: Diagnosis - Discharge Diagnosis (1) Bronchitis Status: Acute (2) COPD exacerbation Status: Acute (3) Type 2 diabetes mellitus Status: Acute Meds Home Medications Medication Instructions Recorded Confirmed Type Aspirin [Aspir 81] 81 mg PO DAILY 07/23/17 07/27/17 History Gabapentin [Gabapentin 300mg Cap] 300 mg PO TID 07/23/17 07/27/17 History Hydroxychloroquine Sulfate 200 mg PO BID 07/23/17 07/27/17 History [Plaquenil] Metformin HCl [Metformin HCl ER] 500 mg PO DAILY 07/23/17 07/27/17 History Cefdinir [Omnicef 300mg Capsule] 300 mg PO BID 07/27/17 07/27/17 History Primidone [Mysoline] 50 mg PO BID 07/27/17 07/27/17 History Symbicort 160-4.5 Mcg Inhaler 1 inhalation INHALATION BID 07/27/17 07/27/17 History Allergies Allergy/AdvReac Type Severity Reaction Status Date / Time cephalexin [CEPHALEXIN] Allergy Unknown NA-DIZZINES Verified 07/23/17 21:18 S sulfamethoxazole Allergy Unknown NA-DIZZINES Verified 07/23/17 21:18 [From BACTRIM] S trimethoprim [From BACTRIM] Allergy Unknown NA-DIZZINES Verified 07/23/17 21:18 S topiramate [From Topamax] AdvReac Severe Chest Pain Verified 07/27/17 16:08 carbamazepine [From Tegretol] AdvReac Intermediate Flushing Verified 07/27/17 16 :08 clarithromycin [From Biaxin] AdvReac Intermediate Gastrointestinal Verified 05/04 16:08 Upset Discharge Plan - Patient Discharge Instructions Additional Instructions: Needs nebulizer. Also needs Prednisone 10mg daily. Patient Instructions: Type 2 Diabetes - Follow up Plan Follow up with: Brooke Nicole MD [Primary Care Provider] - Disposition: Home, Self-Senior Care Medications: Home Medications Medication Instructions Recorded Confirmed Type Aspirin [Aspir 81] 81 mg PO DAILY 07/23/17 07/27/17 History Gabapentin [Gabap
== END 2017-07-29 13:45 | disposition home or self-care (01) ==
PROVIDERS: Admitting Provider Family Medicine; Family Provider Family Medicine; PCP Family Medicine; Visit Provider Family Medicine
DX: J44.1 Chronic obstructive pulmonary disease with (acute) exacerbation; R06.02 Shortness of breath; J44.0 Chronic obstructive pulmonary disease with (acute) lower respiratory infection; J20.9 Acute bronchitis, unspecified
CPT/HCPCS: 36415; 71046; 71250; 80048; 80053; 82550; 82553; 82962; 84484; 85007; 85025; 87486; 87581; 87633; 87798; 93306; 94640; G0378

== ENCOUNTER → 2017-09-09 12:40 | Outpatient (CLI) | payer MEDICARE, SELFPAY ==
[2017-09-09 14:27] VITALS: PULSE 82; PULSE 84
== END ==
PROVIDERS: Family Provider Family Medicine; PCP Family Medicine; Visit Provider Family Medicine
DX: J44.9 Chronic obstructive pulmonary disease, unspecified (principal)
CPT/HCPCS: 94060; 94640; 94727; 94729

== ENCOUNTER → 2017-12-13 09:55 | Outpatient (CLI) | payer MEDICARE, SELFPAY ==
[2017-12-13 10:50] VITALS: PULSE 60; PULSE 64
[2017-12-13 11:15] VITALS: BP 130/84; BP 140/80; PULSE 58; PULSE 69; RESP 16; RESP 22; O2SAT 93; O2SAT 96
== END ==
PROVIDERS: Family Provider Family Medicine; PCP Family Medicine; Visit Provider Internal Medicine
DX: R09.89 Other specified symptoms and signs involving the circulatory and respiratory systems (principal)
CPT/HCPCS: 94060; 94618; 94640; 94726; 94729

== ENCOUNTER 2018-08-14 14:40 | Observation (INO) ==
[2018-08-14 15:01] LABS: Basophils # 0.2 K/mm3 (0-0.2); Basophils % 1.4 % (0.1-2.0); Eosinophils # 0.8 K/mm3 (0.0-0.4); Eosinophils % 7.2 % (0.1-12.0); Hematocrit 53.3 % (42.0-52.0); Hemoglobin 16.3 g/dL (14.1-18.0); Lymphocytes # 2.4 K/mm3 (0.7-4.5); Lymphocytes % 21.5 % (10-50); Mean Corpuscular HGB Conc 30.6 g/dL (31.8-35.4); Mean Corpuscular Hemoglobin 29.9 pg (27.0-31.2); Mean Corpuscular Volume 97.6 fl (80-94); Mean Platelet Volume 8.8 fl (7.4-10.4); Monocytes # 0.7 K/mm3 (0.1-1.0); Monocytes % 6.2 % (1.7-9.3); Neutrophils % 63.8 % (37.0-80.0); Platelet Count 231 K/mm3 (142-424); Red Blood Count 5.46 M/mm3 (4.60-6.20); Red Cell Distribution Width 13.7 % (11.5-17.5)
[2018-08-14 15:08] LABS: Activated Partial Thrombo Time 24.9 seconds (23.6-34.0); INR 0.91 (0.9-1.1); Prothrombin Time 9.4 seconds (9.4-11.8)
[2018-08-14 15:13] LABS: Albumin Level 3.6 gm/dL (3.4-5.0); Bilirubin,Direct 0.1 mg/dL (0.0-0.2); Bilirubin,Indirect 0.3 mg/dL (0.0-0.9); Bilirubin,Total 0.4 mg/dL (0.2-1.0); Total Protein,Serum 7.4 gm/dL (6.4-8.2)
[2018-08-14 15:14] LABS: Amylase 56 U/L (25-115); Lipase 146 u/L (73-393)
[2018-08-14 15:30] LABS: Anion Gap 13.1 mEq/L (5-15); Blood Urea Nitrogen 21 mg/dL (7-18); Carbon Dioxide 27 mmol/L (21.0-32.0); Chloride 106 mmol/L (98-107); Glucose 91 mg/dL (74-106); Potassium 4.1 mmoL/L (3.5-5.1); Sodium 142 mmol/L (136-145)
[2018-08-14 15:31] LABS: Calcium 8.6 mg/dL (8.5-10.1)
--- NOTE | 2018-08-14 18:42 | Emergency Department Note ---
ED Disposition Clinical Impression: Chest pain, Atypical chest pain, Abdominal pain, Enteritis Disposition: Admitted as Observation Condition on Discharge: Fair Time of Disposition: 18:30 - Critical Care Critical Care Time: No Attestation: On 08/14/18, the high probability of a clinically significant, sudden or life threatening deterioration of the following system(s) required my full and direct attention, intervention and personal management. The time I documented below is in addition to time spent performing reported procedures but includes the following listed in this critical care notation. Medical Decision Making - Medical Records Medical records reviewed: Yes: I reviewed the patient's medical records. - Neel Inquiry Pt receiving controlled substance: No Neel was queried for this patient: No Vital Signs: 08/14/18 14:40 08/14/18 17:55 Temperature 97.7 F Temperature Source Oral Pulse Rate [Right Radial] 67 60 Respiratory Rate 20 Blood Pressure [Right Arm] 135/77 137/81 Blood Pressure Mean [Right Arm] 96 99 Blood Pressure Source [Right Arm] Automatic Cuff Automatic Cuff Blood Pressure Position [Right Arm] Sitting Sitting 02 Sat by Pulse Oximetry 95 97 Oxygen Delivery Method Room Air Room Air - Lab Data Lab results reviewed: Yes: I reviewed the patient's lab results. Lab Results 08/14/18 14:45: WBC 11.0 H, RBC 5.46, Hgb 16.3, Hct 53.3 H, MCV 97.6 H, MCH 29.9, MCHC 30.6 L, RDW 13.7, Plt Count 231, MPV 8.8, Neut % (Auto) 63.8, Lymph % (Auto) 21.5, [place] % (Auto) 6.2, Eos % (Auto) 7.2, Baso % (Auto) 1.4, Neut # (Auto) 7.0, Lymph # (Auto) 2.4, [place] # (Auto) 0.7, Eos # (Auto) 0.8 H, Baso # (Auto) 0.2 08/14/18 14:45: Sodium 142, Potassium 4.1, Chloride 106, Carbon Dioxide 27, Anion Gap 13.1, BUN 21 H, Creatinine 1.10, Estimated Creat Clear 77, Estimated GFR 66, Est GFR ( Amer) 80, Glucose 91, Calcium 8.6, Troponin I < 0.02 08/14/18 14:45: PT 9.4, INR 0.91, APTT 24.9 08/14/18 14:45: Total Bilirubin 0.4, Direct Bilirubin 0.1, Indirect Bilirubin 0.3, AST 20, ALT 24, Alkaline Phosphatase 107, Total Protein 7.4, Albumin 3.6 08/14/18 14:45: D-Dimer 456 H* 08/14/18 14:58: Amylase 56, Lipase 146 08/14/18 18:00: Troponin I < 0.02 Result diagrams: 08/14/18 14:45 08/14/18 14:45 Orders (Tests/Meds): ED MEDICATIONS Generic Name Dose Route Start Last Admin Trade Name Freq PRN Reason Stop Dose Admin Lactated Ringer's 1,000 mls @ 125 mls/hr 08/14/18 18:30 Lactated Ringer's 1000 Ml Bag IV 09/13/18 18:29 .Q8H NAZ Discontinued Medications Generic Name Dose Route Start Last Admin Trade Name Freq PRN Reason Stop Dose Admin Aspirin 324 mg 08/14/18 14:46 08/14/18 14:55 Aspirin 81mg Chewable Tablet PO 08/14/18 14:47 324 mg ONCE ONE Administration Iopamidol 75 ml 08/14/18 16:30 08/14/18 16:31 [id number]; 75ml Vial IV 08/14/18 16:31 75 ml ONCE ONE Administration Protocol Sodium Chloride 10 ml 08/14/18 16:30 08/14/18 16:31 Rad-Saline Flush 10ml Syringe IV 08/14/18 16:31 10 ml ONCE ONE Administration ORDERS Category Date Time Status Complete Blood Count Auto Diff AMLAB Lab 08/15/18 06:00 Ordered Comprehensive Metabolic Panel AMLAB Lab 08/15/18 06:00 Ordered Troponin I Q3H Lab 08/14/18 21:45 Ordered Troponin I Q3H Lab 08/15/18 00:45 Ordered - ECG Data Tracing #1 I reviewed this ECG and interpreted as documented below: (EKG normal sinus rhythm heart rate 64 axis -29 left axis deviation low voltage no significant changes from July 26, 2017) ECG initial impression date: 08/14/18 ECG initial impression time: 14:45 Normal Sinus Rhythm: Yes Medical Decision Narrative: Differential diagnosis is abdominal pain intestinal ischemia bowel obstruction renal colic pancreatitis, angina, atypical chest pain, gastroenteritis Patient remains asymptomatic throughout his workout CAT scan of the abdomen and chest did not reveal any pulmonary embolus or intra-thoracic problem on abdominal CT patient had a suggestion of enteritis no acute obstruction small right inguinal hernia. Laboratory studies were essentially unremarkable with a normal troponin patient was discussed with Dr. Haskins covering for Dr. Nicole patient is going to be admitted to telemetry overnight on clear liquids General Adult HPI - General Chief complaint: Chest Pain Stated complaint: chest pain Time Seen by Provider: 08/14/18 14:45 Mode of Arrival: Ambulatory Source of Information: Patient, Spouse Limitations: No Limitations Description of Symptoms (Recalled from ER Triage Doc. by RN): Pt reports he had approx 5 minute episode of chest pain around 1100 today. Pt describes pain as pressure like in nature, pt reports pain radiated into his neck, states he became dizzy during this. Pt denies presence of pain at this time - History of Present Illness HPI narrative: Patient is a 73-year-old borderline diabetic with no history of cardiac disease who complains of sudden onset of upper abdominal pain radiating into the chest all the way up to the neck with pressure patient felt lightheaded diaphoretic lasted several minutes and then resolved. This is the first time he has had such an episode. There was transient nausea and increased salivation - Related Data Home Medications Medication Instructions Recorded Confirmed Aspirin [Aspir 81] 81 mg PO DAILY 07/23/17 08/14/18 Gabapentin [Gabapentin 300mg Cap] 300 mg PO TID 07/23/17 08/14/18 Hydroxychloroquine Sulfate 200 mg PO BID 07/23/17 07/27/17 [Plaquenil] Metformin HCl [Metformin ER 500 mg PO DAILY 07/23/17 08/14/18 Osmotic] Primidone [Mysoline] 50 mg PO BID 07/27/17 08/14/18 Celecoxib 200 mg PO DAILY 08/14/18 08/14/18 Previous Rx's Medication Instructions Recorded Ipratropium/Albuterol Sulfate 3 ml TIDRT #90 ampul.neb 07/29/17 [Duoneb 3mL neb] Allergies Allergy/AdvReac Type Severity Reaction Status Date / Time cephalexin [CEPHALEXIN] Allergy Unknown NA-DIZZINES Verified 07/23/17 21:18 S sulfamethoxazole Allergy Unknown NA-DIZZINES Verified 01/06/18 21:18 [From BACTRIM] S trimethoprim [From BACTRIM] Allergy Unknown NA-DIZZINES Verified 07/23/17 21:18 S topiramate [From Topamax] AdvReac Severe Chest Pain Verified 07/27/17 16:08 carbamazepine [From Tegretol] AdvReac Intermediate [place]ushing Verified 07/27/17 16:08 clarithromycin [From Biaxin] AdvReac Intermediate Gastrointestinal Verified 07/27/17 16:08 Upset [facility] History - Hepatitis A Screen Drug use history?: No High risk sexual behaviors?: No History of sexually transmitted infection?: No Currently employed?: No Childcare worker?: No Do you have indoor plumbing?: Yes Do you have electricity?: Yes Attestation statement:: This patient has been screened for Hepatitis A risk factors. I have reviewed the patient's past medical history: Yes Medical History: Reports:: Diabetes Mellitus Type 2 Denies:: Cancer, Gastrointestinal Bleed, Hypertension, MRSA, Renal Disease, Ulcer Other Medical History: Reports: Other (prediabetic) Laterality Cases: Right: ACL Repair, Bilateral: Tonsillectomy Other Surgeries: Yes: Colonoscopy, Hernia Repair, Other (DAVIDA, VASECTOMY) Amputation: No Fractures: No - Social History Smoking Status: Former smoker Tobacco Type: cigarettes Alcohol Intake: never Occupational Status: retired Housing: house Household Members: spouse - Psychiatric History Expresses thoughts of harming self/others: None Suicide Plan Description: No Plan Family Hx:: Coronary Artery Disease, Diabetes, Heart Attack, Hypertension, Thyroid Disorder ROS Obtained: Yes All systems reviewed & no additional complaints - Gastrointestinal Gastrointestingal: Reports: abdominal pain Physical Exam - General General appearance: alert, in no apparent distress (Pain-free at this time) - Head Head exam: atraumatic, normocephalic, normal inspection - Eye Eye exam: Present: normal appearance, PERRL, EOMI - ENT ENT exam: Present: normal exam, normal oropharynx, mucous membranes moist, TM's normal bilaterally, normal external ear exam - Neck Neck exam: Present: normal inspection, full ROM, trachea midline. Absent: meningismus, lymphadenopathy - Chest Chest inspection: Present: normal inspection, symmetric chest wall rise. Absent: tenderness - Respiratory Respiratory exam: Present: normal lung sounds bilaterally. Absent: respiratory distress - Cardiovascular Cardiovascular exam: Present: regular rate, normal rhythm. Absent: JVD - Abdominal Exam Abdominal exam: Present: soft, tenderness, normal bowel sounds. Absent: distent ion, guarding Abdominal tenderness: Present: epigastrium - Extremities Exam Extremities exam: Present: normal inspection, full ROM, normal capillary refill. Absent: calf tenderness - Back Exam Back exam: Present: normal inspection. Absent: tenderness - Neurological Exam Neurological exam: Present: alert, oriented X3 - Psychiatric Psychiatric exam: Present: normal affect, normal mood - Skin Skin exam: Present: warm, dry, intact, normal color - Lymphatic Lymphatic Findings: no adenopathy
--- NOTE | 2018-08-15 08:33 | Pharmacy Consult Notes ---
[facility] Pharmacy VTE Monitoring - Patient Demographics Admission date: 08/15/18 Report Date: 08/15/18 Time: 08:33 Allergies/Adverse Reactions: Patient Allergies cephalexin [CEPHALEXIN] Allergy (Unknown, Verified 07/23/17 21:18) NA-DIZZINESS sulfamethoxazole [From BACTRIM] Allergy (Unknown, Verified 07/23/17 21:18) NA-DIZZINESS trimethoprim [From BACTRIM] Allergy (Unknown, Verified 07/23/17 21:18) NA-DIZZINESS topiramate [From Topamax] Adverse Reaction (Severe, Verified 07/27/17 16:08) Chest Pain carbamazepine [From Tegretol] Adverse Reaction (Intermediate, Verified 07/27/17 16:08) Flushing clarithromycin [From Biaxin] Adverse Reaction (Intermediate, Verified 07/27/17 16:08) Gastrointestinal Upset Height: 1.73 m Weight: 88.224 kg Patient Problems: Current Active Problems Chest pain (Acute) Atypical chest pain (Acute) Abdominal pain (Acute) Enteritis (Acute) - VTE Risk Labs: VTE Related Lab Results Hgb 16.3 g/dL (14.1-18.0) 08/14/18 14:45 Hct 53.3 % (42.0-52.0) H 08/14/18 14:45 Plt Count 231 K/mm3 (142-424) 08/14/18 14:45 PT 9.4 seconds (9.4-11.8) 08/14/18 14:45 INR 0.91 (0.9-1.1) 08/14/18 14:45 APTT 24.9 seconds (23.6-34.0) 08/14/18 14:45 BUN 21 mg/dL (7-18) H 08/14/18 14:45 Creatinine 1.10 mg/dL (0.70-1.30) 08/14/18 14:45 Estimated Creat Clear 77 mL/min (50-200) 08/14/18 14:45 Was VTE Risk Assessment Performed: Yes VTE Score: 4 VTE Risk Level: Low Risk Clinical Trial Participant: No - Prophylaxis VTE Prophylaxis Ordered?: Yes Types of VTE Prophylaxis: TEDS Knee High
--- NOTE | 2018-08-15 09:21 | History & Physical Report ---
*Admission Date: 08/15/18 *Chief complaint: Abdominal/chest pain *History of present illness: Mr. Coburn is a 73-year-old male with a history of chronic back pain, diabetes mellitus, possible epilepsy and history of pancreatitis who was brought to the emergency room by his last evening after experiencing severe pressure-like pain in his upper abdomen radiating up into his chest and into his neck. He describes a sudden onset at about 11 AM while sitting and talking with a friend. He was somewhat short of breath and felt like he might vomit and pass out. Discomfort resolved within about 5 minutes and he felt normal. 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 He ate breakfast without problems yesterday a.m. prior to the event and had a normal stool. He also ate lunch without any problems. His became concerned about the discomfort and made him come to the emergency room for evaluation. He had a CT of the abdomen pelvis in the emergency room which showed a possible enteritis. Troponin I's have been normal x2. He was admitted for further obse rvation He slept very little during the night due to nursing interventions. He denies having any further discomfort, nausea or vomiting. He has had no diarrhea and is voiding QS. He denies chest pain and shortness of breath. He is anxious to go home. Patient does relate having diarrhea 3 days ago resolved with Pepto-Bismol. He felt fine for the past 2 days. [facility] History Medical History: Reports:: Diabetes Mellitus Type 2 Denies:: Atherosclerotic Heart Disease, BPH, Cancer, Chronic Obstructive Pulmonary Disease (COPD), Coronary Artery Disease, Cerebrovascular Accident, Gastroesophageal Reflux Disease(GERD), Gastrointestinal Bleed, Hypertension, MRSA, Palpitations, Renal Disease, Ulcer Have you ever received a pneumonia vaccine?: No Have you received a flu vaccine this season?: Yes (march) Other Medical History: Reports: Arthritis, Sinus Problems, Other (prediabetic) Laterality Cases: Right: ACL Repair, Bilateral: Tonsillectomy Other Surgeries: Yes: Cholecystectomy, Colonoscopy, Hernia Repair, Other (Vasectomy) Amputation: No Fractures: No - *Social History Educational Level: Attended College Smoking Status: Former smoker Tobacco Type: cigarettes #Yrs smoked (if former smoker): 25 Smoking End Date: 2003 Alcohol Intake: never Alcohol Intake Frequency:: 0-2 drinks per day 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) Housing: house Household Members: spouse, family Travel in the last 8 weeks: None - Psychiatric History Expresses thoughts of harming self/others: None Suicide Plan Description: No Plan *Family Hx:: Cancer, Coronary Artery Disease, Diabetes, Heart Attack, Hypertension, Thyroid Disorder Review of Systems - Constitutional Denies fever(s), Denies headache(s), Denies lack of energy - ENT Reports dizziness, Reports nasal congestion, Denies ear pain, Denies sore throat - *Cardiovascular Reports chest pain, Reports shortness of breath, Denies generalized swelling, Denies irregular heart rhythm, Denies leg swelling - *Respiratory Reports cough (Due to allergies) - *Gastrointestinal Reports abdominal pain, Reports nausea, Denies belching, Denies constipation, Denies cramping, Denies heartburn, Denies vomiting blood, Denies bright, red blood in stools, Denies vomiting - *Genitourinary Denies difficulty urinating - *Musculoskeletal Reports joint pain, Denies abnormal walking - *Neurologic Reports dizziness, Denies abnormal walking, Denies behavioral changes, Denies unsteadiness, Denies headache(s) Meds Home Medications Medication Instructions Recorded Confirmed Type Aspirin [Aspir 81] 81 mg PO DAILY 07/23/17 08/14/18 History Gabapentin [Gabapentin 300mg Cap] 300 mg PO TID 07/23/17 08/15/18 History Metformin HCl [Metformin ER 500 mg PO DAILY 07/23/17 08/15/18 History Osmotic] Primidone [Mysoline] 50 mg PO DAILY 07/27/17 08/15/18 History Celecoxib 200 mg PO DAILY 08/14/18 08/15/18 History Budesonide/Formoterol Fumarate 2 puffs IH BID 08/15/18 08/15/18 History [Symbicort 160-4.5 Mcg Inhaler] Allergies Allergy/AdvReac Type Severity Reaction Status Date / Time cephalexin [CEPHALEXIN] Allergy Unknown NA-DIZZINES Verified 07/23/17 21:18 S sulfamethoxazole Allergy Unknown NA-DIZZINES Verified 07/23/17 21:18 [From BACTRIM] S trimethoprim [From BACTRIM] Allergy Unknown NA-DIZZINES Verified 07/23/17 21:18 S topiramate [From Topamax] AdvReac Severe Chest Pain Verified 07/27/17 16:08 carbamazepine [From Tegretol] AdvReac Intermediate Flushing Verified 07/27/17 16:08 clarithromycin [From Biaxin] AdvReac Intermediate Gastrointestinal Verified 07/27/17 16:08 Upset Exam Vital signs and Labs for Last 24 Hours: Temp Pulse Resp BP Pulse Ox 98.3 F 67 18 120/68 92 L 08/15/18 08:00 08/15/18 08:00 08/15/18 08:00 08/15/18 08:00 08/15/18 08:00 Laboratory Results - last 24 hr 08/14/18 14:45: WBC 11.0 H, RBC 5.46, Hgb 16.3, Hct 53.3 H, MCV 97.6 H, MCH 29.9, MCHC 30.6 L, RDW 13.7, Plt Count 231, MPV 8.8, Neut % (Auto) 63.8, Lymph % (Auto) 21.5, [place] % (Auto) 6.2, Eos % (Auto) 7.2, Baso % (Auto) 1.4, Neut # (Auto) 7.0, Lymph # (Auto) 2.4, [place] # (Auto) 0.7, Eos # (Auto) 0.8 H, Baso # (Auto) 0.2 08/14/18 14:45: Sodium 142, Potassium 4.1, Chloride 106, Carbon Dioxide 27, Anion Gap 13.1, BUN 21 H, Creatinine 1.10, Estimated Creat Clear 77, Estimated GFR 66, Est GFR ( Amer) 80, Glucose 91, Calcium 8.6, Troponin I < 0.02 08/14/18 14:45: PT 9.4, INR 0.91, APTT 24.9 08/14/18 14:45: Total Bilirubin 0.4, Direct Bilirubin 0.1, Indirect Bilirubin 0.3, AST 20, ALT 24, Alkaline Phosphatase 107, Total Protein 7.4, Albumin 3.6 08/14/18 14:45: D-Dimer 456 H* 08/14/18 14:58: Amylase 56, Lipase 146 08/14/18 18:00: Troponin I < 0.02 08/14/18 20:40: POC Glucose 79 08/15/18 08:32: POC Glucose 128 H I & O for Last 24 hours: Intake & Output 08/12/18 08/13/18 08/14/18 08/15/18 11:59 11:59 11:59 11:59 Intake Total 1856 / 1856 Balance 1856 / 1856 Weight 194 lb 8 oz Radiology Reports for the Last 24 Hours: 08/14/2018 chest CTA IMPRESSION: No change with no acute finding. No evidence of pulmonary embolus, aortic aneurysm, or aortic dissection. No change in the small pulmonary nodules 08/14/2018 abdominal/pelvic CT IMPRESSION: 1. Possible enteritis over 2. Other nonacute findings as described above. - Constitutional no acute distress Comments: Awake and alert and appears comfortable. He is sitting upright in the bed in his room - *Routine HEENT Exam Head: Present: normocephalic, atraumatic Eye: Present: PERRL. Absent: conjunctival icterus, scleral injection ENT: Present: mucous membranes moist, nares patent - *Routine Neck Exam Present: supple. Absent: carotid bruit, lymphadenopathy, thyromegaly - Routine Chest/Breast/Axilla Exam Chest wall: Absent: tenderness - *Routine Respiratory Exam Comments: Scattered rare expiratory wheeze - *Routine Cardiovascular Exam Present: RRR Comments: Monitor showing sinus rhythm with occasional ectopy - *Routine Abdominal Exam Present: normoactive bowel sounds. Absent: tenderness Comments: Obese - *Routine Extremities Exam Absent: edema, calf tenderness - *Routine Neurological Exam Present: alert, oriented X3 Assessment and Plan (1) Abdominal pain Current visit: Yes Status: Acute Category: Medical Code(s): R10.9 - Unspecified abdominal pain (2) Atypical chest pain Current visit: Yes Status: Acute Category: Medical Code(s): R07.89 - Other chest pain (3) Enteritis Current visit: Yes Status: Acute Category: Medical Code(s): K52.9 - Noninfective gastroenteritis and colitis, unspecified (4) Type 2 diabetes mellitus Current visit: No Status: Chronic Category: Medical Code(s): E11.9 - Type 2 diabetes mellitus without complications - Assessment and plan all Dx Assessment and Plan for all problems:: We will continue to monitor. Cardiology consult
--- NOTE | 2018-08-15 12:24 | Consult Report ---
History of Present Illness Consult date: 08/15/18 Requesting physician: Brooke Nicole Consult reason: chest pain Chief complaint: chest pain History of present illness: This is a 73 year old white male who presented to the emergency department with chest pain. 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 He states that this was a pressure burning sensation and it radiated up into his chest and into his neck. He states that he felt very nauseous and thought he would vomit but never did. He also felt like he was going to pass out. He denies any shortness of breath or diaphoresis. The patient states that the sensation lasted for 5 minutes and then quickly resolved. He has had no recurrence of pain since that time. The patient reports having a history of diabetes and takes metformin. He denies hypertension or hyperlipidemia. He denies any history of coronary artery disease or CO. He does report that his parents both had MIs. He states that he feels well today. He denies any fever, chills, nausea, vomiting, diarrhea, PND or orthopnea. He does report that over the weekend he had a few episodes of diarrhea but none since that time. [facility] History I have reviewed the patient's past medical history: Yes Medical History: Reports:: Diabetes Mellitus Type 2 Denies:: Atherosclerotic Heart Disease, BPH, Cancer, Chronic Obstructive Pulmonary Disease (COPD), Coronary Artery Disease, Cerebrovascular Accident, Gastroesophageal Reflux Disease(GERD), Gastrointestinal Bleed, Hypertension, MRSA, Palpitations, Renal Disease, Ulcer Have you ever received a pneumonia vaccine?: No Have you received a flu vaccine this season?: Yes (march) Other Medical History: Reports: Arthritis, Sinus Problems, Other (prediabetic) Laterality Cases: Right: ACL Repair, Bilateral: Tonsillectomy Other Surgeries: Yes: Cholecystectomy, Colonoscopy, Hernia Repair, Other (Vasectomy) Amputation: No Fractures: No - *Social History Educational Level: Attended College Smoking Status: Former smoker Tobacco Type: cigarettes #Yrs smoked (if former smoker): 25 Smoking End Date: 2003 Alcohol Intake: never Alcohol Intake Frequency:: 0-2 drinks per day 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) Housing: house Household Members: spouse, family Travel in the last 8 weeks: None - Psychiatric History Expresses thoughts of harming self/others: None Suicide Plan Description: No Plan *Family Hx:: Cancer, Coronary Artery Disease, Diabetes, Heart Attack, Hypertension, Thyroid Disorder Meds Home Medications Medication Instructions Recorded Confirmed Type Aspirin [Aspir 81] 81 mg PO HS 07/23/17 08/15/18 History Gabapentin [Gabapentin 300mg Cap] 300 mg PO TID 07/23/17 08/15/18 History Metformin HCl [Metformin ER 500 mg PO DAILY 07/23/17 08/15/18 History Osmotic] Primidone [Mysoline] 50 mg PO HS 07/27/17 08/15/18 History Celecoxib 200 mg PO DAILY 08/14/18 08/15/18 History Budesonide/Formoterol Fumarate 2 puffs IH BID 08/15/18 08/15/18 History [Symbicort 160-4.5 Mcg Inhaler] Allergies Allergy/AdvReac Type Severity Reaction Status Date / Time cephalexin [CEPHALEXIN] Allergy Unknown NA-DIZZINES Verified 07/23/17 21:18 S sulfamethoxazole Allergy Unknown NA-DIZZINES Verified 07/23/17 21:18 [From BACTRIM] S trimethoprim [From BACTRIM] Allergy Unknown NA-DIZZINES Verified 07/23/17 21:18 S topiramate [From Topamax] AdvReac Severe Chest Pain Verified 07/27/17 16:08 carbamazepine [From Tegretol] AdvReac Intermediate Flushing Verified 07/27/17 16:08 clarithromycin [From Biaxin] AdvReac Intermediate Gastrointestinal Verified 07/27/17 16:08 Upset Review of Systems - Review of Systems Review of systems:: pertinent systems reviewed and negative unless documented below - *Cardiovascular Reports chest pain, Reports chest pain at rest, Reports radiating jaw, neck or arm pain - *Gastrointestinal Reports nausea - *Neurologic Reports dizziness, Denies abnormal walking, Denies behavioral changes, Denies unsteadiness, Denies headache(s) Exam Vital signs and Labs for Last 24 Hours: Temp Pulse Resp BP Pulse Ox 98.0 F 63 18 119/71 94 L 08/15/18 11:45 08/15/18 11:45 08/15/18 11:45 08/15/18 11:45 08/15/18 11:45 Laboratory Results - last 24 hr 08/14/18 14:45: WBC 11.0 H, RBC 5.46, Hgb 16.3, Hct 53.3 H, MCV 97.6 H, MCH 29.9, MCHC 30.6 L, RDW 13.7, Plt Count 231, MPV 8.8, Neut % (Auto) 63.8, Lymph % (Auto) 21.5, [place] % (Auto) 6.2, Eos % (Auto) 7.2, Baso % (Auto) 1.4, Neut # (Auto) 7.0, Lymph # (Auto) 2.4, [place] # (Auto) 0.7, Eos # (Auto) 0.8 H, Baso # (Auto) 0.2 08/14/18 14:45: Sodium 142, Potassium 4.1, Chloride 106, Carbon Dioxide 27, Anion Gap 13.1, BUN 21 H, Creatinine 1.10, Estimated Creat Clear 77, Estimated GFR 66, Est GFR ( Amer) 80, Glucose 91, Calcium 8.6, Troponin I < 0.02 08/14/18 14:45: PT 9.4, INR 0.91, APTT 24.9 08/14/18 14:45: Total Bilirubin 0.4, Direct Bilirubin 0.1, Indirect Bilirubin 0.3, AST 20, ALT 24, Alkaline Phosphatase 107, Total Protein 7.4, Albumin 3.6 08/14/18 14:45: D-Dimer 456 H* 08/14/18 14:58: Amylase 56, Lipase 146 08/14/18 18:00: Troponin I < 0.02 08/14/18 20:40: POC Glucose 79 08/15/18 08:32: POC Glucose 128 H 08/15/18 11:14: POC Glucose 107 I & O for Last 24 hours: Intake & Output 08/12/18 08/13/18 08/14/18 08/15/18 23:59 23:59 23:59 23:59 Intake Total 1855 Balance 1855 Weight 194 lb 8 oz 194 lb 8 oz Narrative: His EKG is sinus rhythm with incomplete right bundle branch block and nonspecific ST and T wave abnormalities. - Constitutional no acute distress, average body habitus - *Routine HEENT Exam Head: Present: normocephalic, atraumatic Eye: Present: EOMI, PERRL ENT: Present: mucous membranes moist - *Routine Neck Exam Present: supple, full ROM, normal carotid upstroke. Absent: JVD, carotid bruit, lymphadenopathy - *Routine Respiratory Exam Present: CTA bilaterally - *Routine Cardiovascular Exam Present: RRR, Normal S1, Normal S2. Absent: murmur, gallop, rubs - *Routine Abdominal Exam Present: soft, normoactive bowel sounds. Absent: tenderness, distended - *Routine Extremities Exam Present: full ROM, pulses intact. Absent: cyanosis, clubbing, edema - *Routine Skin Exam Present: intact, warm. Absent: erythema - *Routine Neurological Exam Present: alert, oriented X3, CN II-XII intact. Absent: sensory deficit, motor deficit - Routine Psychiatric Exam Present: normal affect, normal thought process. Absent: suicidal ideation Assessment and Plan (1) Atypical chest pain Current visit: Yes Status: Acute Category: Medical Code(s): R07.89 - Other chest pain (2) Abdominal pain Current visit: Yes Status: Acute Category: Medical Code(s): R10.9 - U nspecified abdominal pain (3) Enteritis Current visit: Yes Status: Acute Category: Medical Code(s): K52.9 - Noninfective gastroenteritis and colitis, unspecified (4) Type 2 diabetes mellitus Current visit: No Status: Chronic Category: Medical Code(s): E11.9 - Type 2 diabetes mellitus without complications (5) Abnormal EKG Current visit: Yes Status: Acute Category: Medical Code(s): R94.31 - Abnormal electrocardiogram [ECG] [EKG] (6) Right ventricular dilation Current visit: Yes Status: Acute Category: Medical Code(s): I51.7 - Cardiomegaly (7) Former smoker Current visit: Yes Status: Acute Category: Social Hx Code(s): Z87.891 - Personal history of nicotine dependence - Assessment and plan all Dx Assessment and Plan for all problems:: Plan: 1. The patient was admitted to the hospital with epigastric pain that radiated into his chest and up into his neck. The patient had associated nausea and felt presyncopal. He has ruled out for an CO. The chest pain that he did have lasted about 4-5 minutes and has not recurred. Recommend aspirin 81 mg daily. 2. The preliminary reading on his echocardiogram shows a normal ejection fract ion and a dilated right ventricle. However his TR velocity was normal. 3. Given the patient's atypical angina, abnormal EKG and abnormal echocardiogram, we will set the patient up for a Laura scan of the stress test in the morning. 4. The patient will need to be n.p.o. after midnight. No caffeine. 5. His blood pressure is well controlled. 6. His LDL goal is less than 100. We will get a lipid panel in the morning. Start Lipitor 20 mg daily. 7. The patient is diabetic. He does need aggressive control of his diabetes. 8. Continue tobacco cessation is encouraged. He is a former smoker. 9. Given his epigastric pain we will go ahead and get him on a PPI as well. Start Protonix 40 mg daily. 10. Further recommendations were made pending the patient's response to treatment. Thank you for the opportunity to help participate in the care of this patient.
--- NOTE | 2018-08-15 19:07 | Cardiology Report ---
PROCEDURE: 2-D M-mode and color Doppler study INDICATIONS FOR THE TEST: Chest pain X COPD Heart Murmur Tobacco SmokingEX Palpitations Fatigue Syncope Edema Hypertension Diabetes MellitusX Rheumatic Fever SOBXDOEXObesityXHyperlipidemia Family History HD Additional History TDS BODY HABITUS PATIENT INFORMATION HEIGHT: 68 WEIGHT:194 GENDER: Male B/P:119/71 2-D/M-MODE INTERPRETATION: 2-D MEASUREMENTS OBSERVED VALUES IN CMS Right Ventricular Dimension (RVDd) 3.0 Interventricular Septum (Thickness)(IVsd) 1.2 Left Ventricular Internal Dimensions(LVIDd) 4.2 Left Ventricular Posterior Wall (Thickness)(LVPWd) 1.0 Aortic Root 3.3 Aortic Cusp Separation 2.1 Left Atrial Dimensions (LAD) 3.0 2D 1. Left atrium is mildly enlarged, left ventricle is normal size, left ventricle wall thickness is upper limit of the normal, there is preserved left ventricular systolic function, visually estimated ejection fraction 55% with no regional wall motion abnormality. 2. The right atrium and right ventricle are moderately enlarged with normal contractility. 3. The aortic valve is minimally thickened and fibrosed. 4. The mitral and tricuspid valve leaflets are minimally thickened 5. The pulmonic valve is poorly visualized. 6. No significant pericardial effusion noted. DOPPLER INTERROGATION: Doppler interrogation of the aortic, mitral and tricuspid valvular presence of mild mitral and tricuspid regurgitation, tricuspid regurgitation jet velocity is inadequate for calculation of the right ventricular systolic pressure, diastolic parameters are inconclusive. CONCLUSION: 1. Normal left ventricular size, preserved left ventricular systolic function, visually estimated ejection fraction 55% with no regional wall motion abnormality. Diastolic parameters are inconclusive. 2. Moderately enlarged right atrium and right ventricle, contractility of the right ventricle is normal. 3. Mild mitral and tricuspid regurgitation 4. No significant pericardial effusion noted.
[2018-08-16 06:37] LABS: Basophils # 0.1 K/mm3 (0-0.2); Basophils % 1.3 % (0.1-2.0); Eosinophils # 0.7 K/mm3 (0.0-0.4); Eosinophils % 7.9 % (0.1-12.0); Hematocrit 47.2 % (42.0-52.0); Hemoglobin 15.2 g/dL (14.1-18.0); Lymphocytes # 1.9 K/mm3 (0.7-4.5); Mean Corpuscular HGB Conc 32.2 g/dL (31.8-35.4); Mean Corpuscular Volume 93.3 fl (80-94); Mean Platelet Volume 8.9 fl (7.4-10.4); Monocytes # 0.8 K/mm3 (0.1-1.0); Monocytes % 8.8 % (1.7-9.3); Neutrophils # 5.3 K/mm3 (1.8-7.8); Neutrophils % 60.2 % (37.0-80.0); Platelet Count 239 K/mm3 (142-424); Red Blood Count 5.06 M/mm3 (4.60-6.20); Red Cell Distribution Width 13.9 % (11.5-17.5); White Blood Count 8.9 K/mm3 (4.8-10.8)
[2018-08-16 06:53] LABS: Albumin Level 2.8 gm/dL (3.4-5.0); Anion Gap 10.4 mEq/L (5-15); Bilirubin,Direct 0.1 mg/dL (0.0-0.2); Bilirubin,Indirect 0.4 mg/dL (0.0-0.9); Bilirubin,Total 0.5 mg/dL (0.2-1.0); Calcium 8.5 mg/dL (8.5-10.1); Chol/HDL Ratio 5.1 (1-3.5); Potassium 4.4 mmoL/L (3.5-5.1); Total Protein,Serum 6.2 gm/dL (6.4-8.2)
--- NOTE | 2018-08-16 12:01 | Progress Note ---
Internal Medicine - PN: Subj *Date: 08/16/18 *Time: 12:00 Interval history: Patient is feeling well. He just got back from his stress test and we are awaiting results. He denies any CP or SOA. He is hungry. Exam Vital signs and Labs for Last 24 Hours: Temp Pulse Resp BP Pulse Ox 97.7 F 63 18 130/76 92 L 08/16/18 11:22 08/16/18 11:22 08/16/18 11:22 08/16/18 11:22 08/16/18 11:22 Laboratory Results - last 24 hr 08/15/18 16:32: POC Glucose 93 08/15/18 23:17: POC Glucose 94 08/16/18 05:47: WBC 8.9, RBC 5.06, Hgb 15.2, Hct 47.2, MCV 93.3, MCH 30.0, MCHC 32.2, RDW 13.9, Plt Count 239, MPV 8.9, Neut % (Auto) 60.2, Lymph % (Auto) 22.0, [place] % (Auto) 8.8, Eos % (Auto) 7.9, Baso % (Auto) 1.3, Neut # (Auto) 5.3, Lymph # (Auto) 1.9, [place] # (Auto) 0.8, Eos # (Auto) 0.7 H, Baso # (Auto) 0.1 08/16/18 05:47: Sodium 141, Potassium 4.4, Chloride 108 H, Carbon Dioxide 27, Anion Gap 10.4, BUN 14 D, Creatinine 1.02, Estimated Creat Clear 83, Estimated GFR 72, Est GFR ( Amer) 87, Glucose 101, Calcium 8.5, Total Bilirubin 0.5, Direct Bilirubin 0.1, Indirect Bilirubin 0.4, AST 18, ALT 20, Alkaline Phosphatase 83, Total Protein 6.2 L, Albumin 2.8 L, Triglycerides 67, Cholesterol 143, LDL Cholesterol 102, VLDL Cholesterol 13, HDL Cholesterol 28, Cholesterol/HDL Ratio 5.1 H 08/16/18 06:03: POC Glucose 97 08/16/18 11:52: POC Glucose 91 I & O for Last 24 hours: Intake & Output 08/14/18 08/15/18 08/16/18 08/17/18 11:59 11:59 11:59 11:59 Intake Total 1855 Balance 1855 Weight 194 lb 8 oz 195 lb 5 oz - Constitutional no acute distress - *Routine Respiratory Exam Present: CTA bilaterally - *Routine Cardiovascular Exam Present: RRR - *Routine Abdominal Exam Present: soft, normoactive bowel sounds. Absent: tenderness - *Routine Extremities Exam Absent: cyanosis, clubbing, edema Assessment and Plan (1) Atypical chest pain Current visit: Yes Status: Acute Category: Medical Code(s): R07.89 - Other chest pain (2) Abdominal pain Current visit: Yes Status: Acute Category: Medical Code(s): R10.9 - Unspecified abdominal pain (3) Enteritis Current visit: Yes Status: Acute Category: Medical Code(s): K52.9 - Noninfective gastroenteritis and colitis, unspecified (4) Type 2 diabetes mellitus Current visit: No Status: Chronic Category: Medical Code(s): E11.9 - Type 2 diabetes mellitus without complications (5) Abnormal EKG Current visit: Yes Status: Acute Category: Medical Code(s): R94.31 - Abnormal electrocardiogram [ECG] [EKG] (6) Right ventricular dilation Current visit: Yes Status: Acute Category: Medical Code(s): I51.7 - Cardiomegaly (7) Former smoker Current visit: Yes Status: Acute Category: Social Hx Code(s): Z87.891 - Personal history of nicotine dependence - Assessment and plan all Dx Assessment and Plan for all problems:: Will await stress test results.
--- NOTE | 2018-08-16 14:25 | Progress Note ---
Subjective Date: 08/16/18 Time: 13:00 Principal diagnosis: angina Interval history: This is a 73-year-old white male who was admitted from the emergency department with chest pain. The patient was having epigastric pain. He states that this started suddenly. He states that it was a pressure, burning sensation that radiated up into his chest and into his neck. The patient felt nauseous and thought he was going to vomit as well as felt as if he were going to pass out. The patient states that this lasted for about 5 minutes and then resolved. He has had no recurrence of the pain. His echocardiogram yesterday was abnormal. He underwent a Lexiscan Myoview stress test this morning and it showed a large area of reversible ischemia in the inferior wall. He denies any fever, chills, nausea, vomiting diarrhea, PND or orthopnea. Exam Vital signs and Labs for Last 24 Hours: Temp Pulse Resp BP Pulse Ox 97.7 F 63 18 130/76 92 L 08/16/18 11:22 08/16/18 13:11 08/16/18 11:22 08/16/18 11:22 08/16/18 11:22 Laboratory Results - last 24 hr 08/15/18 16:32: POC Glucose 93 08/15/18 23:17: POC Glucose 94 08/16/18 05:47: WBC 8.9, RBC 5.06, Hgb 15.2, Hct 47.2, MCV 93.3, MCH 30.0, MCHC 32.2, RDW 13.9, Plt Count 239, MPV 8.9, Neut % (Auto) 60.2, Lymph % (Auto) 22.0, [place] % (Auto) 8.8, Eos % (Auto) 7.9, Baso % (Auto) 1.3, Neut # (Auto) 5.3, Lymph # (Auto) 1.9, [place] # (Auto) 0.8, Eos # (Auto) 0.7 H, Baso # (Auto) 0.1 08/16/18 05:47: Sodium 141, Potassium 4.4, Chloride 108 H, Carbon Dioxide 27, Anion Gap 10.4, BUN 14 D, Creatinine 1.02, Estimated Creat Clear 83, Estimated GFR 72, Est GFR ( Amer) 87, Glucose 101, Calcium 8.5, Total Bilirubin 0.5, Direct Bilirubin 0.1, Indirect Bilirubin 0.4, AST 18, ALT 20, Alkaline Phosphatase 83, Total Protein 6.2 L, Albumin 2.8 L, Triglycerides 67, Cholesterol 143, LDL Cholesterol 102, VLDL Cholesterol 13, HDL Cholesterol 28, Cholesterol/HDL Ratio 5.1 H 08/16/18 06:03: POC Glucose 97 08/16/18 11:52: POC Glucose 91 I & O for Last 24 hours: Intake & Output 08/13/18 08/14/18 08/15/18 08/16/18 23:59 23:59 23:59 23:59 Intake Total 3940 / 3940 0 / 0 Balance 3940 / 3940 0 / 0 Weight 194 lb 8 oz 194 lb 8 oz 195 lb 5 oz Radiology Reports for the Last 24 Hours: His Lexiscan Myoview stress test shows a normal ejection fraction. There is a large area of reversible ischemia in the inferior wall. Narrative: Telemetry strip is sinus rhythm with a rate of 66. - *Routine HEENT Exam Head: Present: normocephalic, atraumatic Eye: Present: EOMI, PERRL ENT: Present: mucous membranes moist - *Routine Neck Exam Present: supple, full ROM, normal carotid upstroke. Absent: JVD, carotid bruit, lymphadenopathy - *Routine Respiratory Exam Present: CTA bilaterally - *Routine Cardiovascular Exam Present: RRR, Normal S1, Normal S2, murmur. Absent: gallop, rubs - *Routine Abdominal Exam Present: soft, normoactive bowel sounds. Absent: tenderness - *Routine Extremities Exam Present: full ROM, pulses intact. Absent: cyanosis, clubbing, edema - *Routine Skin Exam Present: intact, warm. Absent: rash - *Routine Neurological Exam Present: alert, oriented X3, CN II-XII intact. Absent: sensory deficit, motor deficit - Detailed Eye Exam Eyelids: Left normal inspection Progress Note: A&P (1) Atypical chest pain Status: Acute Current Visit: Yes (2) Abnormal cardiovascular stress test Status: Acute Current Visit: Yes (3) Abdominal pain Status: Acute Current Visit: Yes (4) Enteritis Status: Acute Current Visit: Yes (5) Type 2 diabetes mellitus Status: Chronic Current Visit: No (6) Abnormal EKG Status: Acute Current Visit: Yes (7) Right ventricular dilation Status: Acute Current Visit: Yes (8) Former smoker Status: Acute Current Visit: Yes Assessment and Plan for All Diagnoses:: plan: 1. The patient was admitted with chest pain. The patient is having atypical angina. See HPI. The patient underwent Lexiscan stress test. This is abnormal and is high risk. Given his atypical angina and his abnormal stress test the patient does have suspected coronary artery disease and will undergo left cardiac catheterization today to evaluate for coronary artery disease. 2. The patient has been educated on the risks of proceeding with left cardiac catheterization. The patient is verbalized understanding and is agreeable in proceeding with the procedure. 3. The patient will remain n.p.o. in preparation for left cardiac catheterization. 4. CAD is suspected. 5. His blood pressure well controlled. 6. His LDL goal is less than 100. His LDL is currently 104. 7. The patient does need aggressive control of his diabetes. Will defer this to the primary care provider. 8. Further recommendations will be made pending the patient's response to treatment him the results of his left cardiac catheterization later today. Thank you for the opportunity to help participate in the care of this patient.
--- NOTE | 2018-08-16 20:13 | Progress Note ---
Internal Medicine - PN: Subj *Date: 08/16/18 *Time: 20:11 Interval history: The patient is stable this evening after his cardiac workup. There is no report on the chart regarding his heart catheterization. The patient reports that he required no stent placement. We will probably discharge him in the morning. Exam Vital signs and Labs for Last 24 Hours: Temp Pulse Resp BP Pulse Ox 97.7 F 80 17 106/64 L 94 L 08/16/18 11:22 08/16/18 18:15 08/16/18 18:15 08/16/18 18:15 08/16/18 18:15 Laboratory Results - last 24 hr 08/15/18 23:17: POC Glucose 94 08/16/18 05:47: WBC 8.9, RBC 5.06, Hgb 15.2, Hct 47.2, MCV 93.3, MCH 30.0, MCHC 32.2, RDW 13.9, Plt Count 239, MPV 8.9, Neut % (Auto) 60.2, Lymph % (Auto) 22.0, [place] % (Auto) 8.8, Eos % (Auto) 7.9, Baso % (Auto) 1.3, Neut # (Auto) 5.3, Lymph # (Auto) 1.9, [place] # (Auto) 0.8, Eos # (Auto) 0.7 H, Baso # (Auto) 0.1 08/16/18 05:47: Sodium 141, Potassium 4.4, Chloride 108 H, Carbon Dioxide 27, Anion Gap 10.4, BUN 14 D, Creatinine 1.02, Estimated Creat Clear 83, Estimated GFR 72, Est GFR ( Amer) 87, Glucose 101, Calcium 8.5, Total Bilirubin 0.5, Direct Bilirubin 0.1, Indirect Bilirubin 0.4, AST 18, ALT 20, Alkaline Phosphatase 83, Total Protein 6.2 L, Albumin 2.8 L, Triglycerides 67, Cholesterol 143, LDL Cholesterol 102, VLDL Cholesterol 13, HDL Cholesterol 28, Cholesterol/HDL Ratio 5.1 H 08/16/18 06:03: POC Glucose 97 08/16/18 11:52: POC Glucose 91 08/16/18 16:45: POC Glucose 142 H I & O for Last 24 hours: Intake & Output 08/14/18 08/15/18 08/16/18 08/17/18 11:59 11:59 11:59 11:59 Intake Total 1855 0 / 0 Balance 1855 0 / 0 Weight 194 lb 8 oz 195 lb 5 oz 195 lb 4.991 oz - Constitutional no acute distress - *Routine Respiratory Exam Comments: Good air movement bilaterally. Only a few bibasilar rales. - *Routine Cardiovascular Exam Present: RRR - *Routine Extremities Exam Absent: edema Assessment and Plan (1) Atypical chest pain Current visit: Yes Status: Acute Category: Medical Code(s): R07.89 - Other chest pain (2) Abnormal cardiovascular stress test Current visit: Yes Status: Acute Category: Medical Code(s): R94.39 - Abnormal result of other cardiovascular function study (3) Abdominal pain Current visit: Yes Status: Acute Category: Medical Code(s): R10.9 - Unspecified abdominal pain (4) Enteritis Current visit: Yes Status: Acute Category: Medical Code(s): K52.9 - Noninfective gastroenteritis and colitis, unspecified (5) Type 2 diabetes mellitus Current visit: No Status: Chronic Category: Medical Code(s): E11.9 - Type 2 diabetes mellitus without complications (6) Abnormal EKG Current visit: Yes Status: Acute Category: Medical Code(s): R94.31 - Abnormal electrocardiogram [ECG] [EKG] (7) Right ventricular dilation Current visit: Yes Status: Acute Category: Medical Code(s): I51.7 - Cardiomegaly (8) Former smoker Current visit: Yes Status: Acute Category: Social Hx Code(s): Z87.891 - Personal history of nicotine dependence - Assessment and plan all Dx Assessment and Plan for all problems:: We plan discharge morning.
--- NOTE | 2018-08-17 08:04 | Progress Note ---
Subjective Date: 08/17/18 Time: 08:01 Principal diagnosis: angina Interval history: 73 yo WM in bed in NAD. Ready to go home. No chest pains. Exam Vital signs and Labs for Last 24 Hours: Temp Pulse Resp BP Pulse Ox 98.2 F 73 18 122/59 L 91 L 08/17/18 04:00 08/17/18 04:00 08/17/18 04:00 08/17/18 04:00 08/17/18 06:43 Laboratory Results - last 24 hr 08/16/18 11:52: POC Glucose 91 08/16/18 16:45: POC Glucose 142 H 08/16/18 20:31: POC Glucose 118 H 08/17/18 05:46: POC Glucose 105 I & O for Last 24 hours: Intake & Output 08/14/18 08/15/18 08/16/18 08/17/18 11:59 11:59 11:59 11:59 Intake Total 1855 / 1852083 / 2083 200 / 200 Balance 1855 / 1852083 200 / 200 Weight 194 lb 8 oz 195 lb 5 oz 197 lb 4 oz - *Routine HEENT Exam Head: Present: normocephalic Eye: Present: EOMI, PERRL ENT: Present: mucous membranes moist - *Routine Neck Exam Present: supple. Absent: JVD, carotid bruit - *Routine Respiratory Exam Present: CTA bilaterally. Absent: accessory muscle use, rales, rhonchi, wheezes - *Routine Cardiovascular Exam Present: RRR. Absent: murmur, gallop, rubs - *Routine Extremities Exam Absent: edema, calf tenderness - *Routine Neurological Exam Present: alert, oriented X3, moving all extremities Progress Note: A&P (1) Atypical chest pain Status: Acute Current Visit: Yes (2) Abnormal cardiovascular stress test Status: Acute Current Visit: Yes (3) Abdominal pain Status: Acute Current Visit: Yes (4) Enteritis Status: Acute Current Visit: Yes (5) Type 2 diabetes mellitus Status: Chronic Current Visit: No (6) Abnormal EKG Status: Acute Current Visit: Yes (7) Right ventricular dilation Status: Acute Current Visit: Yes (8) Former smoker Status: Acute Current Visit: Yes Assessment and Plan for All Diagnoses:: 1. Branch vessel CAD noted on cath with normal LVEF. Recommendation for medical therapy. 2. Start bisoprolol 2.5 mg daily 3. Continue ASA and atorvastatin. 4. Follow up in one week.
--- NOTE | 2018-08-17 08:44 | Progress Note ---
Internal Medicine - PN: Subj *Date: 08/17/18 *Time: 08:41 Interval history: Patient states he feels great this morning and is anxious to go home. He denies chest pain or shortness of breath. Only complaint is some numbness in his right fifth digit after the cath. Exam Vital signs and Labs for Last 24 Hours: Temp Pulse Resp BP Pulse Ox 97.9 F 88 17 147/82 H 96 08/17/18 08:00 08/17/18 08:00 08/17/18 08:00 08/17/18 08:00 08/17/18 08:00 Laboratory Results - last 24 hr 08/16/18 11:52: POC Glucose 91 08/16/18 16:45: POC Glucose 142 H 08/16/18 20:31: POC Glucose 118 H 08/17/18 05:46: POC Glucose 105 I & O for Last 24 hours: Intake & Output 08/14/18 08/15/18 08/16/18 08/17/18 11:59 11:59 11:59 11:59 Intake Total 1855 / 1852083 680 / 680 Balance 185 / 1852083 680 / 680 Weight 194 lb 8 oz 195 lb 5 oz 197 lb 4 oz Radiology Reports for the Last 24 Hours: Heart Cath 1. Coronary artery disease as described above with severe stenosis in the large posterior descending artery which accounts for the inferior ischemia on stress test 2. Normal ejection fraction 3. Mildly elevated LVEDP PLAN: 1. I strongly favor medical management in this patient. Although the posterior descending artery could be stented this would require stenting back into the [place] vessel which would cross the posterior lateral branch. Technically this would be a simple procedure however I believe the patient would have better long-term management with medicines 2. LDL less than 55 3. Low-dose bisoprolol and vipin inhibitors if tolerable 4. Maximize antianginal medication 5. Patient might benefit from low dose diuretics to decrease EDP 6. Should patient develop recalcitrant angina pectoris in the future we can consider revascularizing the right coronary artery at that time - Constitutional no acute distress - *Routine Respiratory Exam Present: CTA bilaterally - *Routine Cardiovascular Exam Present: RRR - *Routine Abdominal Exam Present: soft, normoactive bowel sounds. Absent: tenderness - *Routine Extremities Exam Absent: cyanosis, clubbing, edema Assessment and Plan (1) Atypical chest pain Current visit: Yes Status: Acute Category: Medical Code(s): R07.89 - Other chest pain (2) Abnormal cardiovascular stress test Current visit: Yes Status: Acute Category: Medical Code(s): R94.39 - Abnormal result of other cardiovascular function study (3) Abdominal pain Current visit: Yes Status: Acute Category: Medical Code(s): R10.9 - Unspecified abdominal pain (4) Enteritis Current visit: Yes Status: Acute Category: Medical Code(s): K52.9 - Noninfective gastroenteritis and colitis, unspecified (5) Type 2 diabetes mellitus Current visit: No Status: Chronic Category: Medical Code(s): E11.9 - Type 2 diabetes mellitus without complications (6) Abnormal EKG Current visit: Yes Status: Acute Category: Medical Code(s): R94.31 - Abnormal electrocardiogram [ECG] [EKG] (7) Right ventricular dilation Current visit: Yes Status: Acute Category: Medical Code(s): I51.7 - Cardiomegaly (8) Former smoker Current visit: Yes Status: Acute Category: Social Hx Code(s): Z87.891 - Personal history of nicotine dependence (9) Coronary artery disease Current visit: Yes Status: Acute Category: Medical Code(s): I25.10 - Atherosclerotic heart disease of [place] coronary artery without angina pectoris - Assessment and plan all Dx Assessment and Plan for all problems:: Patient can be discharged home as per cardiology. He will need to start bisoprolol 2.5 mg daily, continue ASA and atorvastatin, and follow up in one week with cardiology.
--- NOTE | 2018-08-17 13:05 | Discharge Summary ---
General - General Admission date:: 08/14/18 Discharge date: 08/17/18 HPI HPI: Mr. Coburn is a 73-year-old male with a history of chronic back pain, diabetes mellitus, possible epilepsy and history of pancreatitis who was brought to the emergency room by his last evening after experiencing severe pressure-like pain in his upper abdomen radiating up into his chest and into his neck. He describes a sudden onset at about 11 AM while sitting and talking with a friend. He was somewhat short of breath and felt like he might vomit and pass out. Discomfort resolved within about 5 minutes and he felt normal. 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 He ate breakfast without problems yesterday a.m. prior to the event and had a normal stool. He also ate lunch without any problems. His became concerned about the discomfort and made him come to the emergency room for evaluation. He had a CT of the abdomen pelvis in the emergency room which showed a possible enteritis. Troponin I's have been normal x2. He was admitted for further observation He slept very little during the night due to nursing interventions. He denies having any further discomfort, nausea or vomiting. He has had no diarrhea and is voiding QS. He denies chest pain and shortness of breath. He is anxious to go home. Patient does relate having diarrhea 3 days ago resolved with Pepto-Bismol. He felt fine for the past 2 days. Hospital Course Hospital Course: The patient was admitted and cardiology was consulted. His EKG showed sinus rhythm with an incomplete right bundle branch block and nonspecific ST and T wave abnormalities. Cardiology ordered an echo which showed a normal ejection fraction and a dilated right ventricle. They felt given his atypical angina and abnormal EKG as well as the abnormality on the echocardiogram, he should have a Lexiscan stress test. The stress test was performed and was abnormal. The patient was felt to be at high risk, therefore a cardiac catheterization was ordered. The patient's heart cath showed branch vessel coronary artery disease with a normal LVEF. Dr. Still recommended medical therapy and no stents were placed. Cardiology recommended the patient be started on bisoprolol 2.5 mg daily and he should continue his aspirin and atorvastatin. They felt he was stable to be discharged home with a follow-up in their office in 1 week. Objective Vital signs: Temp Pulse Resp BP Pulse Ox 97.9 F 88 17 147/82 H 96 08/17/18 08:00 08/17/18 08:00 08/17/18 08:00 08/17/18 08:00 08/17/18 08:00 Narrative: - Constitutional no acute distress Comments: Awake and alert and appears comfortable. He is sitting upright in the bed in his room - *Routine HEENT Exam Head: Present: normocephalic, atraumatic Eye: Present: PERRL. Absent: conjunctival icterus, scleral injection ENT: Present: mucous membranes moist, nares patent - *Routine Neck Exam Present: supple. Absent: carotid bruit, lymphadenopathy, thyromegaly - Routine Chest/Breast/Axilla Exam Chest wall: Absent: tenderness - *Routine Respiratory Exam Comments: Scattered rare expiratory wheeze - *Routine Cardiovascular Exam Present: RRR Comments: Monitor showing sinus rhythm with occasional ectopy - *Routine Abdominal Exam Present: normoactive bowel sounds. Absent: tenderness Comments: Obese - *Routine Extremities Exam Absent: edema, calf tenderness - *Routine Neurological Exam Present: alert, oriented X3 Results Labs on day of discharge: Labs from last 24 hours 08/17/18 08/16/18 08/16/18 05:46 20:31 16:45 POC Glucose 105 118 H 142 H DS: Diagnosis - Discharge Diagnosis (1) Atypical chest pain Status: Acute (2) Abnormal cardiovascular stress test Status: Acute (3) Abdominal pain Status: Acute (4) Enteritis Status: Acute (5) Type 2 diabetes mellitus Status: Chronic (6) Abnormal EKG Status: Acute (7) Right ventricular dilation Status: Acute (8) Former smoker Status: Acute (9) Coronary artery disease Status: Acute Discharge Plan - Patient Discharge Instructions ACTIVITY: Limited activity DIET: low fat, low cholesterol Patient Instructions: Angina, DI for Cardiac Catheterization - Follow up Plan Follow up with: Brooke Nicole MD [Primary Care Provider] - 08/22/18 Disposition: Home, Self-Nursing Home Medications: Home Medications Medication Instructions Recorded Confirmed Type Aspirin [Aspir 81] 81 mg PO HS 07/23/17 08/15/18 History Gabapentin [Gabapentin 300mg Cap] 300 mg PO TID 07/23/17 08/15/18 History Metformin HCl [Metformin ER 500 mg PO DAILY 07/23/17 08/15/18 History Osmotic] Primidone [Mysoline] 50 mg PO HS 07/27/17 08/15/18 History Celecoxib 200 mg PO DAILY 08/14/18 08/15/18 History Budesonide/Formoterol Fumarate 2 puffs IH BID 08/15/18 08/15/18 History [Symbicort 160-4.5 Mcg Inhaler] Atorvastatin Calcium [Lipitor 20mg 20 mg PO HS #30 tablet 08/17/18 Rx Tablet] Bisoprolol Fumarate [Bisoprolol 5 mg PO DAILY #30 tab 08/17/18 Rx 5mg Tablet] Ipratropium/Albuterol Sulfate 3 ml IH TIDRT ampul.neb 08/17/18 Rx [Duoneb 3mL neb] Prescriptions/Medication Reconciliation: New Ipratropium/Albuterol Sulfate [Duoneb 3mL neb] 3 ml IH TIDRT ampul.neb Bisoprolol Fumarate [Bisoprolol 5mg Tablet] 5 mg PO DAILY #30 tab Atorvastatin Calcium [Lipitor 20mg Tablet] 20 mg PO HS #30 tablet Continue Metformin HCl [Metformin ER Osmotic] 500 mg PO DAILY Gabapentin [Gabapentin 300mg Cap] 300 mg PO TID Aspirin [Aspir 81] 81 mg PO HS Primidone [Mysoline] 50 mg PO HS Budesonide/Formoterol Fumarate [Symbicort 160-4.5 Mcg Inhaler] 2 puffs IH BID Celecoxib 200 mg PO DAILY
== END 2018-08-17 11:07 | disposition home or self-care (01) ==
LOC: ER 14:40 → 2ND 14:40
PROVIDERS: ADMIT Family Medicine; ATTEND Family Medicine
CPT/HCPCS: 36415; 71275; 74177; 78452; 80048; 80061; 80076; 82150; 82962; 83690; 84484; 85025; 85378; 85610; 85730; 93005; 93017; 93306; 93458; 94640; 94761; 99152; 99284; A9502; C1725; C1769; G0378; J1644; J2785; Q9966; Q9967

== ENCOUNTER → 2018-11-22 16:09 | Outpatient (CLI) | payer MEDICARE, SELFPAY ==
--- NOTE | 2018-11-22 16:14 | XR_ITS ---
XR chest 2V HISTORY: ITS.REASON: RALES ORDERING PHYSICIAN: SHANI Grace PATIENT AGE: 73 years COMPARISON: 07/29/2017 FINDINGS: The cardiomediastinal silhouette and pulmonary vascularity are within normal limits. The lungs are clear without infiltrates, suspicious nodules, or pleural effusions. There are chronic changes in the left lung base. No acute bony abnormalities. IMPRESSION: No change with no acute finding
== END ==
PROVIDERS: PCP Family Medicine; Visit Provider Physician Assistant
DX: R09.89 Other specified symptoms and signs involving the circulatory and respiratory systems (principal)
CPT/HCPCS: 71046

== ENCOUNTER → 2019-02-15 07:57 | Outpatient (CLI) | payer MEDICARE, SELFPAY ==
--- NOTE | 2019-02-15 07:59 | CT_ITS ---
CT lung screening EXAM: CT LUNG LOW DOSE WO CONTRAST HISTORY: 40 pack-year smoking history, asymptomatic for lung cancer ITS.REASON: HX TOBACCO USE ORDERING PHYSICIAN: Brooke Nicole MD PATIENT AGE: 74 years COMPARISON: 08/14/2018 TECHNIQUE: The exam was performed on a GE Light Speed [address] scanner using 2.90 mGy CTDI. A low dose helical CT CHEST was performed on a multi-detector scanner. All CT scans at the facility use one or more dose reduction, viz: automated exposure control, ma/kV adjustment per patient size (including targeted exams where dose is matched to indication, i.e. head), or iterative reconstruction technique. The LDCT was performed in a facility that meets the criteria for the screening program. Data regarding this exam was submitted to ACR which is an approved registry. The order for this exam indicates that it came as a result of a lung cancer screening counseling shard decision-making visit that included all the elements required of such a visit including smoking cessation. The radiologist interpreting this exam meets the CMS criteria for the LDCT lung cancer screening program. The exam is reported using the Lung-RADS classification scale and reported to the ACR registry. NOTE: This study was performed for the specific purposes of lung cancer screening and is not an alternative to diagnostic chest CT. RADIATION DOSE: CTDI vol(CT dose Index-volume) = 2.90mG DLP (Dose Length Product) = 107.59 mGcm FINDINGS: Minimal coronary artery calcification. Prior cholecystectomy. Changes of COPD. 5 mm noncalcified nodule along the right major fissure superiorly within the right lower lobe there is a 15 x 10 mm parenchymal opacity in the extreme right lung base posteriorly and could be due to an area of atelectasis as opposed to a developing nodule. 3 month follow-up suggested. 4 mm noncalcified nodule left upper lobe unchanged. 4 mm left upper lobe nodule laterally and anteriorly probably unchanged IMPRESSION: 1. Lung RADS Category: 4 A mildly suspicious regarding new 15 mm parenchymal opacity in the right lung base which may be due to atelectasis or infiltrate. Suggest 3 month follow up with contrast. At that time would recommend scanning both supine and prone. 2. Other findings: COPD, coronary artery calcification RECOMMENDATIONS: [address] scanning in both the prone and supine position follow-up
== END ==
PROVIDERS: PCP Family Medicine; Visit Provider Family Medicine
DX: Z12.2 Encounter for screening for malignant neoplasm of respiratory organs (principal); Z87.891 Personal history of nicotine dependence

== ENCOUNTER → 2019-05-21 13:27 | Outpatient (CLI) | payer MEDICARE, SELFPAY ==
--- NOTE | 2019-05-21 13:40 | CT_ITS ---
PROCEDURE: CT CHEST W CON CLINCAL INDICATION: PULMONARY NODULES Follow-up pulmonary nodules COMPARISON: [facility] CT angio chest from 08/14/[address] lung screening from 02/15/2019 TECHNIQUE: IV Contrast: 75ml Optiray 350 Axial images obtained with sagittal and coronal reformats. All CT scans at the facility use one or more dose reduction, viz: automated exposure control, ma/kV adjustment per patient size (including targeted exams where dose is matched to indication, i.e. head), or iterative reconstruction technique. FINDINGS: HEART,AORTA,PULMONARY ARTERIES Unremarkable. MEDIASTINAL AND HILAR STRUCTURES: No mediastinal or hilar mass evident. No dominant adenopathy. LUNGS: COPD. No lobar consolidation or collapse. 4 mm nodular opacity along the right major fissure unchanged.. 3 mm nodule right lower lobe probably unchanged.. Previously noted parenchymal opacity in the right lung base posteriorly is no longer apparent and is consistent with an area of atelectasis or consolidation which has resolved. Stable 4 mm nodular opacity left lower lobe in the subpleural region. Stable 4 mm nodule left upper lobe laterally. No new nodules evident. PLEURAL SPACES: No significant effusion. No evidence of pneumothorax. BONY STRUCTURES: No acute bony abnormalities apparent. LYMPH NODES: No enlarged lymph nodes evident. UPPER ABDOMEN: Unremarkable. ADDITIONAL FINDINGS: No other significant abnormalities. IMPRESSION: 1. Previously noted parenchymal opacity in the right lung base posteriorly is no longer apparent and was consistent with an area of atelectasis or infiltrate. 2. Other small nodule stable. 3. Recommend continued annual follow-up with LDCT Dictated by: Nicholas Young MD 05/22/2019 07:51 Electronically signed by Nicholas Young MD in [place] 05/24/2019 06:18
[2019-05-21 13:50] LABS: Blood Urea Nitrogen 22 mg/dL (7-18); Creatinine,Serum 1.27 mg/dL (0.70-1.30); Estimated Glomerular Filt Rate 56 ml/min (>60); GFR (African American) 67 ML/MIN (>60)
== END ==
PROVIDERS: PCP Family Medicine; Visit Provider Family Medicine
DX: R91.8 Other nonspecific abnormal finding of lung field (principal)
CPT/HCPCS: 36415; 71260; 82565; 84520; Q9967

== ENCOUNTER → 2019-06-22 13:10 | Outpatient (CLI) | payer MEDICARE, SELFPAY ==
--- NOTE | 2019-06-22 13:22 | XR_ITS ---
PROCEDURE: XR KNEE LT 3V CLINICAL INDICATION: LEFT KNEE PAIN COMPARISON: No exams were available for comparison FINDINGS: No fracture or dislocation. No lytic or blastic change. There is normal mineralization. The joint spaces are well-preserved. No significant degenerative/arthritic changes. No erosive changes evident. Other findings:None. IMPRESSION: No acute findings and no significant degenerate change Dictated by: Dr. Javy Estrella MD 06/22/2019 13:[address] Javy Estrella MD in [place] 06/22/2019 13:51
== END ==
PROVIDERS: PCP Family Medicine; Visit Provider Family Medicine
DX: M25.562 Pain in left knee (principal)
CPT/HCPCS: 73562

== ENCOUNTER → 2019-06-26 14:25 | Outpatient (CLI) | payer MEDICARE, SELFPAY ==
--- NOTE | 2019-06-26 14:29 | CA_ITS ---
APPROVED REPORT Left Lower Extremity Venous Study for DVT. Fire Patrol: Alicia Aiken RVT Indications Lower Extremity Pain: Vein Imaging CFV (L): compressive, spontaneous, phasic, augmentation FEM (L): compressive, spontaneous, phasic, augmentation POP (L): compressive, spontaneous, phasic, augmentation PTV (L): Compressible GSV (L): Compressible Peroneals (L):Compressible GAS (L): Compressible Findings No evidence of DVT seen in the left lower extremity. No evidence of SVT seen in the left lower extremity. Conclusion No evidence of DVT seen in the left lower extremity. No evidence of SVT seen in the left lower extremity. Critical Notification Physician Notified Date: 06/26/2019 Time: 14:55 Physician Name: Mariaelena Nicole's office Electronically signed by : Spenser Avilez, 06/26/2019 16:04:36
== END ==
PROVIDERS: PCP Family Medicine; Visit Provider Family Medicine
DX: M79.605 Pain in left leg (principal)
CPT/HCPCS: 93971

== ENCOUNTER → 2019-06-28 14:56 | Outpatient (CLI) | payer MEDICARE, SELFPAY ==
--- NOTE | 2019-06-28 14:58 | MR_ITS ---
PROCEDURE: MR KNEE LT WO CON CLINICAL INDICATION: LEFT LEG PAIN Left knee pain and instability COMPARISON: XR KNEE LT 3V from 06/22/2019 TECHNIQUE: Routine multiplanar multi echo sequences are performed without gadolinium enhancement. FINDINGS: The cruciate ligaments, collateral ligaments, patellar tendon, and quadriceps tendon appear intact. Patellar cartilage is well preserved. There is some diffuse increased T2 signal involving the posterior horn of the medial meniscus. There is also a thin irregular area of increased T2 signal which extends to the tibial articular surface on 1 and possibly 2 images involving the posterior horn of the medial meniscus suggesting a subtle horizontal tear of the meniscus. The lateral meniscus has an unremarkable appearance. There is a small knee joint effusion. IMPRESSION: 1. There is question of a subtle horizontal tear of the posterior horn of the medial meniscus 2. Small knee joint effusion. 3. Otherwise negative MRI of the left knee Dictated by: Nicholas Young MD 06/29/2019 06:18 Electronically signed by Nicholas Young MD in [place] 07/03/2019 11:23
== END ==
PROVIDERS: PCP Family Medicine; Visit Provider Family Medicine
DX: M79.605 Pain in left leg (principal)
CPT/HCPCS: 73721

== ENCOUNTER → 2019-11-15 11:22 | Outpatient (CLI) | payer MEDICARE, SELFPAY ==
--- NOTE | 2019-11-15 11:25 | XR_ITS ---
PROCEDURE: XR KNEE LT 4V CLINICAL INDICATION: Knee pain COMPARISON: XR KNEE LT 3V from 06/22/2019 FINDINGS: No fracture or dislocation. No lytic or blastic change. There is normal mineralization. There is slight decrease in the joint space medially suggesting minimal osteoarthritic change. Other findings:None. 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
== END ==
PROVIDERS: PCP Family Medicine; Visit Provider Orthopaedic Surgery
DX: M25.562 Pain in left knee (principal)
CPT/HCPCS: 73564

== ENCOUNTER 2019-11-15 12:49 | Outpatient (RCR) | payer MEDICARE, SELFPAY | END 2019-11-15 13:15 | disposition home or self-care (01) | LOC: PT 12:49 | PROVIDERS: Visit Provider Orthopaedic Surgery | DX: M17.12 Unilateral primary osteoarthritis, left knee (principal) ==

== ENCOUNTER → 2020-03-05 10:18 | Outpatient (CLI) | payer MEDICARE, SELFPAY ==
--- NOTE | 2020-03-05 10:25 | XR_ITS ---
PROCEDURE: XR CHEST 2V CLINICAL HISTORY: COPD W/ EXACERBATION Former smoker COMPARISON: CR CXR CHEST(2 VIEWS-NOT PORTABLE) from 04/05/2015 CR CXR2V XR chest 2V from 07/26/2017 CR CXR2V XR chest 2V from 07/29/[address] CHEST W CON from 05/21/2019 FINDINGS: The cardiomediastinal silhouette and pulmonary vascularity are within normal limits. Increased soft tissue density is present in the azygos region slightly more prominent from the previous studies and could be due to prominent azygos vein or developing adenopathy. There are changes of COPD with coarsened bronchovascular markings. No lobar consolidation or collapse. No acute bony abnormalities. 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
== END ==
PROVIDERS: PCP Family Medicine; Visit Provider Family Medicine
DX: J44.1 Chronic obstructive pulmonary disease with (acute) exacerbation (principal)
CPT/HCPCS: 71046

== ENCOUNTER → 2020-03-15 15:52 | Outpatient (CLI) | payer MEDICARE, SELFPAY ==
--- NOTE | 2020-03-15 16:03 | XR_ITS ---
PROCEDURE: XR CHEST 2V CLINICAL HISTORY: F/U COPD Former smoker OPD COMPARISON: CR CXR2V XR chest 2V from 07/26/2017 CR CXR2V XR chest 2V from 07/29/[address] CHEST W CON from 05/21/2019 CR XR CHEST 2V from 03/05/2020 FINDINGS: The cardiomediastinal silhouette and pulmonary vascularity are within normal limits. The nodularity in the right hilar region is somewhat less apparent and likely related to azygos vein. Changes of COPD which are stable. No acute bony findings. IMPRESSION: No acute finding. Nodular region of the right hilum is less apparent is felt to be related to an azygos vein Dictated by: Nicholas Young MD 03/15/2020 17:52 Nicholas Young MD in [place] 03/15/2020 17:52
== END ==
PROVIDERS: PCP Family Medicine; Visit Provider Family Medicine
DX: J44.9 Chronic obstructive pulmonary disease, unspecified (principal)
CPT/HCPCS: 71046

== ENCOUNTER → 2020-03-19 12:14 | Outpatient (CLI) | payer MEDICARE, SELFPAY ==
[2020-03-19 12:58] LABS: Basophils # 0.2 K/mm3 (0-0.2); Basophils % 1.5 % (0.1-2.0); Eosinophils # 0.9 K/mm3 (0.0-0.4); Eosinophils % 7.3 % (0.1-12.0); Hematocrit 50.6 % (42.0-52.0); Hemoglobin 16.8 g/dL (14.1-18.0); Lymphocytes # 2.5 K/mm3 (0.7-4.5); Lymphocytes % 19.9 % (10-50); Mean Corpuscular HGB Conc 33.2 g/dL (31.8-35.4); Mean Corpuscular Hemoglobin 32.1 pg (27.0-31.2); Mean Corpuscular Volume 96.6 fl (80-94); Mean Platelet Volume 8.5 fl (7.4-10.4); Monocytes % 7.8 % (1.7-9.3); Neutrophils # 7.9 K/mm3 (1.8-7.8); Neutrophils % 63.4 % (37.0-80.0); Platelet Count 243 K/mm3 (142-424); Red Blood Count 5.24 M/mm3 (4.60-6.20); Red Cell Distribution Width 14.2 % (11.5-17.5); White Blood Count 12.4 K/mm3 (4.8-10.8)
[2020-03-20 22:38] LABS: Covid-19 Nasal PCR Sendout Lex POSITIVE
== END ==
PROVIDERS: PCP Family Medicine; Visit Provider Family Medicine
DX: J44.1 Chronic obstructive pulmonary disease with (acute) exacerbation (principal)
CPT/HCPCS: 36415; 85025; U0004

== ENCOUNTER → 2020-04-01 18:24 | Outpatient (CLI) | payer MEDICARE, SELFPAY ==
[2020-04-04 10:27] LABS: Covid-19 Nasal PCR Sendout Lex NOT DETECTED
== END ==
PROVIDERS: PCP Family Medicine; Visit Provider Family Medicine
DX: U07.1 COVID-19 (principal)
CPT/HCPCS: U0004

== ENCOUNTER → 2020-04-29 07:31 | Outpatient (CLI) | payer MEDICARE, SELFPAY ==
--- NOTE | 2020-04-29 07:32 | CT_ITS ---
PROCEDURE: CT LUNG SCREENING CLINICAL INDICATION: Cancer screening former smoker 30 pack year smoking history copd prior ldls, 02/15/19 chest w, 05/21/19 COMPARISON: CT CT CHEST W CON from 05/21/2019 TECHNIQUE: The exam was performed on a [employer] Speed [address] scanner using 2.90 mGy CTDI. A low dose helical CT CHEST was performed on a multi-detector scanner. All CT scans at the facility use one or more dose reduction, viz: automated exposure control, ma/kV adjustment per patient size (including targeted exams where dose is matched to indication, i.e. head), or iterative reconstruction technique. The LDCT was performed in a facility that meets the criteria for the screening program. Data regarding this exam was submitted to ACR which is an approved registry. The order for this exam indicates that it came as a result of a lung cancer screening counseling shard decision-making visit that included all the elements required of such a visit including smoking cessation. The radiologist interpreting this exam meets the CMS criteria for the LDCT lung cancer screening program. The exam is reported using the Lung-RADS classification scale and reported to the ACR registry. NOTE: This study was performed for the specific purposes of lung cancer screening and is not an alternative to diagnostic chest CT. RADIATION DOSE: CTDI vol(CT dose Index-volume) = 2.90mG DLP (Dose Length Product) = 107.07 mGcm FINDINGS: Changes of COPD with minimal prominence of the pulmonary interstitium. Small fissural nodules are present benign-appearing. Mild bronchial thickening. There is a 3 mm noncalcified nodule in the left upper lobe unchanged. 3 mm subpleural nodule left lower lobe unchanged. No suspicious pulmonary nodules are identified. OTHER FINDINGS: No other pertinent findings evident. IMPRESSION: Lung-RADS Category 2 Benign Appearance or Behavior Follow-up: Continue annual screening with LDCT in 12 months Dictated by: Nicholas Young MD 05/05/2020 10:54 Nicholas Young MD in [place] 05/05/2020 10:54
--- NOTE | 2020-04-29 07:47 | CA_ITS ---
APPROVED REPORT EXAM: Comprehensive 2D, Doppler, and color-flow Echocardiogram Community Midwife: Josi Anguiano CRT Ht: 5 ft 8 in Wt: 207lbs BSA: 2.07 BP: 100/65 mmHg Indications: Chest Pain, COPD, Shortness of Breath, Diabetes, Peripheral Edema 2D Dimensions LVOT 2.18 cm (M/F) 1.5-2.5 M-Mode Dimensions RVDd 2.86 cm (0.9-2.6) LVDd 3.71 cm (3.5-5.7) LVDs 3.29 cm (3.5-5.7) IVSd 1.82 cm (0.6-1.1) PWd 1.00 cm (0.6-1.1) EF (Teich) 25.10% FS 11.30% EDV (Teich) 58.50 mL ESV (Teich) 43.80 mL LV Diastology E/A Ratio 0.77 Mitral Valve MV A Velocity 58.00 (40-130 cm/s) Left Ventricle Left atrium is mildly enlarged, left ventricle is normal size, mild concentric left ventricular hypertrophy, visually estimated ejection fraction 55% with no regional wall motion abnormality, grade 1 diastolic dysfunction seen without tissue Doppler evidence of raise left atrial pressure. Right Ventricle Right atrium and right ventricle mildly enlarged with normal contractility. Aortic Valve Aortic valve is minimally thickened and fibrosed, there is no aortic stenosis or aortic insufficiency. Mitral Valve Mitral valve is grossly normal, there is mild mitral regurgitation. Tricuspid Valve Tricuspid valve is grossly normal, there is mild tricuspid regurgitation, tricuspid regurgitation jet velocity is inadequate for calculation of the right ventricular systolic pressure. Pulmonic Valve Pulmonic valve is poorly visualized. Great Vessels Aortic root is normal size. Pericardium No significant pericardial effusion noted. Conclusion 1. Mild biatrial enlargement, normal left ventricular size, mild concentric left ventricular hypertrophy, visually estimated ejection fraction 55% with no regional wall motion abnormality, grade 1 diastolic dysfunction seen without tissue Doppler evidence of raise left atrial pressure. 2. Mildly enlarged right ventricle with normal contractility. 3. Mild mitral and tricuspid regurgitation. 4. No significant pericardial effusion noted. Electronically signed by : David Zepeda, 04/29/2020 21:04:16
--- NOTE | 2020-04-29 08:33 | FL_ITS ---
PROCEDURE: FL BARIUM SWALLOW CLINICAL INDICATION: difficulty swallowing COMPARISON: No exams were available for comparison TECHNIQUE: In the upright position the patient was observed to swallow barium in both the AP and lateral view. The cervical esophagus was examined under fluoroscopy with images obtained. The patient was then placed prone in the right anterior oblique position and was observed to swallow barium with Valsalva technique . FLUOROSCOPY TIME: 46 seconds FINDINGS: There was no evidence of aspiration. There was normal peristalsis. No filling defects or mucosal abnormalities. No masses or strictures. Hypertrophic changes are present at C5 and C6 anteriorly causing some indentation upon the posterior aspect of the esophagus. No hiatal hernia. No constricting lesions evident. No mucosal abnormalities. IMPRESSION: 1. Unremarkable barium swallow. 2. Minimal indentation upon the posterior aspect of the esophagus with osteophytes at C5-C6 and C6-C7 Dictated by: Nicholas Young MD 04/29/2020 12:35 Nicholas Young MD in [place] 04/29/2020 12:35
== END ==
PROVIDERS: PCP Family Medicine; Visit Provider Internal Medicine Pulmonary Disease
DX: F17.210 Nicotine dependence, cigarettes, uncomplicated (principal); R06.00 Dyspnea, unspecified; R13.10 Dysphagia, unspecified
CPT/HCPCS: 74220; 93306; 94060; 94618; 94726; 94729

== ENCOUNTER 2020-10-15 13:24 | Emergency (ER) | payer MEDICARE, SELFPAY ==
[2020-10-15 13:34] VITALS: BP 123/70; PULSE 63; RESP 20; TEMP 36.8; O2SAT 92; BMI 29.6
--- NOTE | 2020-10-15 14:08 | HMH.EDUTC ---
[facility] [place] Disposition Clinical Impression: COPD exacerbation Disposition: Home, Self-Care Condition on Discharge: Good Instructions: Chronic Obstructive Pulmonary Disease (Alternative Therapy), Physical Activity for People with COPD Additional Instructions: Drink plenty of fluids. Take tylenol or ibuprofen for pain or fever. Take the medications as directed. Follow up with your regular doctor. GO TO THE ER FOR ANY WORSENING SYMPTOMS Don't start the oral steroids(medrol dose pack) until tomorrow, since you had the shot here today. Prescriptions: methylPREDNISolone [Medrol] 4 mg PO DIRECTED 6 Days #21 tab.ds.pk Transmission Status: Received by [facility] Azithromycin [Z-Rickie 250mg Tab*] 250 mg PO UD DOSE PK #6 tab Transmission Status: Received by [facility] Referrals: Brooke Nicole MD [Primary Care Provider] - Time of Disposition: 14:16 Medical Decision Making - Medical Records Medical records reviewed: No: I reviewed the patient's medical records. - Neel Inquiry Pt receiving controlled substance: No Vital Signs: 10/15/20 13:34 10/15/20 14:18 Temperature 98.3 F 98.3 F Temperature Source Oral Pulse Rate 60 Pulse Rate [Right] 63 Respiratory Rate 20 20 Blood Pressure 124/65 Blood Pressure [Right Arm] 123/70 Blood Pressure Mean [Right Arm] 87 Blood Pressure Source Automatic Cuff Blood Pressure Source [Right Arm] Automatic Cuff Blood Pressure Position Sitting Blood Pressure Position [Right Arm] Sitting 02 Sat by Pulse Oximetry 92 L Oxygen Delivery Method Room Air Room Air Orders (Tests/Meds): ED MEDICATIONS Discontinued Medications Generic Name Dose Route Start Last Admin Trade Name Jonathan PRN Reason Stop Dose Admin Methylprednisolone Sodium Succinate 125 mg 10/15/20 14:03 10/15/20 14:14 Methylprednisolone Sod Succ 125mg Vial IM 10/15/20 14:04 125 mg ONCE ONE Administration [facility] [place] HPI - General Stated complaint: possible upper respitory infection Time Seen by Provider: 10/15/20 14:10 Mode of Arrival: Ambulatory Source of Information: Patient Limitations: No Limitations Description of Symptoms (Recalled from Triage Doc. by RN): pt c/o cough for the past couple of weeks. Says he thinks its his yearly URI HEENT Symptoms (Recalled from RN notes): No Resp Symptoms (Recalled from RN notes): Yes (cough) Skin Symptoms (Recalled from RN notes): No MS Symptoms (Recalled from RN notes): No Functional Status (Recalled from RN notes): na - History of Present Illness Provider Complaint: He states that he has had chest congestion and sinus congestion for the past 2 weeks. He denies any fever/chills. He has had the 2 shot immunizations for covid. He denies that he has been around anyone with covid. He does have a history of copd. - Related Data Home Medications Medication Instructions Recorded Confirmed Aspirin [Aspir 81] 81 mg PO HS 07/23/17 09/04/20 Gabapentin [Gabapentin 300mg Cap] 300 mg PO TID 07/23/17 09/04/20 Metformin HCl [Metformin ER 500 mg PO DAILY 07/23/17 09/04/20 Osmotic] Primidone [Mysoline] 50 mg PO HS 07/27/17 09/04/20 hydrochlorothiazide 12.5 mg tablet 12.5 mg PO DAILY #30 tab 12/19/18 09/04/20 Previous Rx's Medication Instructions Recorded Atorvastatin Calcium [Lipitor 20mg 20 mg PO HS #30 tab 08/17/18 Tablet*] metoprolol succinate 25 mg 25 mg PO DAILY #90 tab 08/13/19 tablet,extended release 24 hr fluticasone propionate 50 1 spray INTRANASAL DAILY #9.9 ml 04/11/20 mcg/actuation nasal spray,suspension Xopenex HFA 45 mcg/actuation 2 inh INHALATION Q6H PRN #15 g NS 05/22/20 aerosol inhaler fluticasone furoate 100 1 inh INHALATION DAILY #60 each 09/04/20 mcg-vilanterol 25 mcg/dose inhalation powder levalbuterol tartrate 45 2 inh INHALATION Q6H PRN #15 g 09/04/20 mcg/actuation aerosol inhaler pantoprazole 20 mg tablet,delayed 20 mg PO DAILY #30 tab 09/04/20 release Azithromycin [Z-P
[2020-10-15 14:18] VITALS: BP 124/65; PULSE 60; RESP 20; TEMP 36.8; O2SAT 95
== END 2020-10-15 14:19 | disposition home or self-care (01) ==
PROVIDERS: Emergency Provider Nurse Practitioner Family; PCP Family Medicine
DX: J44.1 Chronic obstructive pulmonary disease with (acute) exacerbation (principal); E11.9 Type 2 diabetes mellitus without complications; I10 Essential (primary) hypertension; E78.5 Hyperlipidemia, unspecified; Z87.891 Personal history of nicotine dependence; Z79.899 Other long term (current) drug therapy
CPT/HCPCS: G0463; 96372; 99202

== ENCOUNTER 2020-10-27 12:57 | Emergency (ER) | payer MEDICARE, SELFPAY ==
[2020-10-27 13:45] VITALS: BP 111/74; PULSE 74; RESP 18; TEMP 37; O2SAT 98; BMI 29.6
--- NOTE | 2020-10-27 14:21 | HMH.EDUTC ---
[facility] [place] Clinical Impression: URI with cough and congestion Disposition: Home, Self-Care Condition on Discharge: Good Instructions: Cough, Guaifenesin Additional Instructions: ? Monitor temp. Tylenol every 4 hours as needed and / or ibuprofen every 6 hours as needed ( As long as your primary care physician has told you that it ok to take both. For fever/aches/pains ER if no less than 101 despite Tylenol or Motrin ? Humidifier/vaporizer or hot steamy shower ? Inhaler every 4-6 hours as needed like we discussed. If unsure how to use it, ask pharmacist to demonstrate how. Should help open airways and improve cough, wheezing, and shortness of breath ? Mucinex for your cough . Be sure to drink lots of water. . Follow up with Family Doctor in the next 48-72 hours if no improvement and immediately if any worsening of symptoms You were tested for today for COVID19 your test result should be back in the next 24-48 hours, you may call to the [facility] to see if your test results are back in the next 48 hours [phone] [facility] hours are 9am-9pm You was given a handout with instructions for Self Quarantine and Self isolation for while you wait on test results and what to do if they are positive If you are positive the Health Dept will be contacting you also Follow up IMMEDIATELY for new or worsening of symptoms OR no noticeable improvement over the next 48-72 hours. 911 immediately for any life threatening symptoms such as chest pain or difficulty breathing Prescriptions: guaiFENesin [Mucinex 600mg tablet] 1 - 2 tab PO BID #20 tab.er.12h Transmission Status: Pending to Replaced By [facility] Referrals: Brooke Nicole MD [Primary Care Provider] - As needed Time of Disposition: 15:16 Medical Decision Making - Neel Inquiry Pt receiving controlled substance: No Neel was queried for this patient: No Vital Signs: 10/27/20 13:45 Temperature 98.6 F Temperature Source Oral Pulse Rate [Left Brachial] 74 Respiratory Rate 18 Blood Pressure [Left Arm] 111/74 Blood Pressure Mean [Left Arm] 86 Blood Pressure Source [Left Arm] Automatic Cuff Blood Pressure Position [Left Arm] Sitting 02 Sat by Pulse Oximetry 98 Oxygen Delivery Method Room Air Orders (Tests/Meds): ORDERS Category Date Time Status Covid-19 Nasal PCR ([facility]) Routine Lab 10/27/20 14:40 Received - Radiology Data #1 Image(s): Chest Image Reviewed: Yes I have reviewed radiologist's interpretation No acute finding. [facility] [place] HPI - General Stated complaint: weakness, abd pain Time Seen by Provider: 10/27/20 14:21 Mode of Arrival: Ambulatory Source of Information: Patient Limitations: No Limitations Description of Symptoms (Recalled from Triage Doc. by RN): PATIENT C/O COUGH AND CONGESTION. STATES HE WAS SEEN HERE LAST WEEK AND IS NOT FEELING BETTER HEENT Symptoms (Recalled from RN notes): No Resp Symptoms (Recalled from RN notes): Yes Skin Symptoms (Recalled from RN notes): No MS Symptoms (Recalled from RN notes): No Functional Status (Recalled from RN notes): WNL - History of Present Illness Provider Complaint: Patient states that he was here a couple weeks ago and finished medication States that he is still having cough, nasal congestion and feeling tired States that a couple days ago he had upset stomach but no longer having that and thinks it was from a soda that he left in his car and it got hot but he was thirsty and drank it States that today he came back in due to still having the cough and congestion - Related Data Home Medications Medication Instructions Recorded Confirmed Aspirin [Aspir 81] 81 mg PO HS 07/23/17 09/04/20 Gabapentin [Gabapentin 300mg Cap] 300 mg PO TID 07/23/17 09/04/20 Metformin HCl [Metformin ER 500 mg PO DAILY 07/23/17 09/04/20 Osmotic] Primidone [Mysoline] 50 mg PO HS 07/27/17 09/04/20 hydrochlorothiazide 12.5 mg tablet 12.5 mg PO DAILY #30 tab 12/19/18 09/04/20 Previous Rx's Medication Instructions Recorde
--- NOTE | 2020-10-27 14:27 | XR_ITS ---
PROCEDURE: XR CHEST 2V CLINICAL HISTORY: cough/congestion COMPARISON: CR CXR2V XR chest 2V from 07/29/[address] CHEST W CON from 05/21/2019 CR XR CHEST 2V from 03/05/2020 CR XR CHEST 2V from 03/15/2020 FINDINGS: Unremarkable cardiovascular structures. No lobar consolidation or collapse. Eleven mm nodular opacity projects over the lower lobe. This may be due to a button artifact and could be confirmed with repeat exam without any garments on the patient. This is not readily apparent on 03/15/2020. No acute bony abnormalities. IMPRESSION: No acute finding. Probable button artifact overlying the right lower lobe. Suggest repeat exam without any garments on the patient for confirmation. Dictated by: Nicholas Young MD 10/27/2020 15:01 Nicholas Young MD in [place] 10/27/2020 15:01
[2020-10-27 15:16] VITALS: BP 111/74; PULSE 74; RESP 18; TEMP 37; O2SAT 98
== END 2020-10-27 15:20 | disposition home or self-care (01) ==
PROVIDERS: Emergency Provider Nurse Practitioner; PCP Family Medicine
DX: Z20.822 Contact with and (suspected) exposure to COVID-19 (principal); J06.9 Acute upper respiratory infection, unspecified; E11.9 Type 2 diabetes mellitus without complications; I10 Essential (primary) hypertension; Z87.891 Personal history of nicotine dependence; E78.5 Hyperlipidemia, unspecified; Z88.2 Allergy status to sulfonamides; Z88.8 Allergy status to other drugs, medicaments and biological substances; Z79.84 Long term (current) use of oral hypoglycemic drugs; Z79.899 Other long term (current) drug therapy
CPT/HCPCS: G0463; 71046; 99202; U0003

== ENCOUNTER → 2021-01-16 12:14 | Outpatient (CLI) | payer MEDICARE, SELFPAY ==
--- NOTE | 2021-01-16 12:17 | XR_ITS ---
PROCEDURE: XR CHEST 2V CLINICAL HISTORY: COPD COMPARISON: CT CT CHEST W CON from 05/21/2019 CR XR CHEST 2V from 03/05/2020 CR XR CHEST 2V from 03/15/2020 CR XR CHEST 2V from 10/27/2020 FINDINGS: The cardiomediastinal silhouette and pulmonary vascularity are within normal limits. The lungs are clear without infiltrates, suspicious nodules, or pleural effusions. No acute bony abnormalities. IMPRESSION: No acute findings. Dictated by: Nicholas Young MD 01/16/2021 12:41 Nicholas Young MD in [place] 01/16/2021 12:41
== END ==
PROVIDERS: PCP Family Medicine; Visit Provider Family Medicine
DX: J44.1 Chronic obstructive pulmonary disease with (acute) exacerbation (principal)
CPT/HCPCS: 71046

== ENCOUNTER → 2021-02-22 10:26 | Outpatient (CLI) | payer MEDICARE, SELFPAY | PROVIDERS: PCP Family Medicine; Visit Provider Family Medicine | DX: Z20.822 Contact with and (suspected) exposure to COVID-19 (principal) | CPT/HCPCS: U0003 ==

== ENCOUNTER 2021-02-24 11:21 | Emergency (ER) | payer MEDICARE, SELFPAY ==
[2021-02-24 11:53] VITALS: BP 134/73; PULSE 65; RESP 17; TEMP 36.9; O2SAT 94; BMI 30.4
[2021-02-24 12:09] VITALS: BP 134/73; PULSE 65; RESP 17; TEMP 36.9; O2SAT 94
--- NOTE | 2021-02-24 12:23 | HMH.EDUTC ---
[facility] [place] Disposition Clinical Impression: Myoclonus Disposition: Home, Self-Care Condition on Discharge: Good Instructions: Myoclonus Additional Instructions: I put in a referral to neurology. You need to see a neurologist for this condition. There are multiple causes and treatments. Follow up with your primary care doctor. GO TO THE ER FOR ANY WORSENING SYMPTOMS OR CONCERNS Referrals: Brooke Nicole MD [Primary Care Provider] - Ce Lamb MD [Staff Physician] - Time of Disposition: 12:35 Medical Decision Making - Medical Records Medical records reviewed: No: I reviewed the patient's medical records. - Neel Inquiry Pt receiving controlled substance: No Vital Signs: 02/24/21 11:53 02/24/21 12:09 Temperature 98.4 F 98.4 F Temperature Source Oral Pulse Rate 65 Pulse Rate [Left] 65 Respiratory Rate 17 17 Blood Pressure 134/73 Blood Pressure [Right Arm] 134/73 Blood Pressure Mean [Right Arm] 93 02 Sat by Pulse Oximetry [address] [facility] [place] HPI - General Stated complaint: jerking Time Seen by Provider: 02/24/21 12:23 Mode of Arrival: Ambulatory Source of Information: Patient Limitations: No Limitations Description of Symptoms (Recalled from Triage Doc. by RN): Pt is complaining on involuntary jerking movements that have been going on for several months. Pt reports that his primary doctor is working on this by eliminating medication. HEENT Symptoms (Recalled from RN notes): No Resp Symptoms (Recalled from RN notes): No Skin Symptoms (Recalled from RN notes): No MS Symptoms (Recalled from RN notes): Yes Functional Status (Recalled from RN notes): wnl - History of Present Illness Provider Complaint: He states that he has been having jerking of his legs and shoulders for the past several months. His pcp has changed some of his medicines last week, but he reports that this has not helped his symptoms any. He denies any pain. He states that as long as he's walking or standing he doesn't have these symptoms, but as soon as he sits down they begin. - Related Data Home Medications Medication Instructions Recorded Confirmed Aspirin [Aspir 81] 81 mg PO HS 07/23/17 11/26/20 Gabapentin [Gabapentin 300mg Cap] 300 mg PO TID 07/23/17 11/26/20 Metformin HCl [Metformin ER 500 mg PO DAILY 07/23/17 11/26/20 Osmotic] Primidone [Mysoline] 50 mg PO HS 07/27/17 11/26/20 hydrochlorothiazide 12.5 mg tablet 12.5 mg PO DAILY #30 tab 12/19/18 11/26/20 Previous Rx's Medication Instructions Recorded Atorvastatin Calcium [Lipitor 20mg 20 mg PO HS #30 tab 08/17/18 Tablet*] metoprolol succinate 25 mg 25 mg PO DAILY #90 tab 08/13/19 tablet,extended release 24 hr levalbuterol tartrate 45 2 inh INHALATION Q6H PRN #15 g 09/04/20 mcg/actuation aerosol inhaler pantoprazole 20 mg tablet,delayed 20 mg PO DAILY #30 tab 09/04/20 release Xopenex HFA 45 mcg/actuation 2 inh INHALATION Q6H PRN #15 g NS 11/26/20 aerosol inhaler budesonide 160 mcg-glycopyr 9 2 inh INHALATION BID #10.7 g 11/26/20 mcg-formot 4.8 mcg/actuation HFA inhaler fluticasone propionate 50 1 spray INTRANASAL DAILY #9.9 ml 11/26/20 mcg/actuation nasal spray,suspension levocetirizine 5 mg tablet 5 mg PO DAILY PRN #30 tab 11/26/20 Allergies Allergy/AdvReac Type Severity Reaction Status Date / Time cephalexin [CEPHALEXIN] Allergy Unknown NA-DIZZINES Verified 02/24/21 11:57 S sulfamethoxazole Allergy Unknown NA-DIZZINES Verified 02/24/21 11:57 [From BACTRIM] S trimethoprim [From BACTRIM] Allergy Unknown NA-DIZZINES Verified 02/24/21 11:57 S topiramate [From Topamax] AdvReac Severe Chest Pain Verified 02/24/21 11:57 carbamazepine [From Tegretol] AdvReac Intermediate Flushing Verified 02/24/21 11:57 clarithromycin [From Biaxin] AdvReac Intermediate Gastrointestinal Verified 02/24/21 11:57 Upset - Worker's Comp Is this a Worker's Comp case?: No [facility] History - Hepatitis A Screen Drug use history?: No
== END 2021-02-24 12:45 | disposition home or self-care (01) ==
PROVIDERS: Emergency Provider Nurse Practitioner Family; PCP Family Medicine
DX: G25.3 Myoclonus (principal); E11.9 Type 2 diabetes mellitus without complications; I10 Essential (primary) hypertension; E78.5 Hyperlipidemia, unspecified; Z79.899 Other long term (current) drug therapy
CPT/HCPCS: G0463; 99202

== ENCOUNTER → 2021-03-05 10:29 | Outpatient (CLI) | payer MEDICARE, SELFPAY ==
[2021-03-05 12:04] LABS: Free T4 (Free Thyroxine) 1.51 ng/dl (0.78-2.19); T4 (Thyroxine) 12.5 ug/dl (5.53-11.0)
[2021-03-05 12:18] LABS: Thyroid Stimulating Hormone 0.55 uIU/mL (0.465-4.68)
[2021-03-05 12:52] LABS: Vitamin B12 515 pg/mL (239-931)
[2021-03-05 12:53] LABS: Folate 9.92 ng/mL
== END ==
PROVIDERS: Visit Provider Specialist
DX: G25.9 Extrapyramidal and movement disorder, unspecified (principal)
CPT/HCPCS: 36415; 82607; 82746; 84436; 84439; 84443

== ENCOUNTER 2021-03-05 12:57 | Emergency (ER) | payer MEDICARE, SELFPAY ==
--- NOTE | 2021-03-05 13:45 | XR_ITS ---
PROCEDURE: XR CHEST 2V CLINICAL HISTORY: COUGH COMPARISON: CT CT CHEST W CON from 05/21/2019 CR XR CHEST 2V from 03/15/2020 CR XR CHEST 2V from 10/27/2020 CR XR CHEST 2V from 01/16/2021 FINDINGS: The cardiomediastinal silhouette and pulmonary vascularity are within normal limits. No lobar consolidation or collapse. Vague opacity overlies the left 6th rib anteriorly at 9 mm and could represent a nipple shadow. Confirmation could be obtained with follow-up. No acute bony abnormalities. IMPRESSION: No acute finding. Possible nipple shadow left lower lobe Dictated by: Nicholas Young MD 03/05/2021 14:10 Nicholas Young MD in [place] 03/05/2021 14:10
[2021-03-05 13:52] VITALS: BP 149/73; PULSE 66; RESP 20; TEMP 36.7; O2SAT 93; BMI 31.0
--- NOTE | 2021-03-05 14:25 | HMH.EDUTC ---
[facility] Disposition Clinical Impression: COPD exacerbation Disposition: Home, Self-Care Condition on Discharge: Good Instructions: Chronic Obstructive Pulmonary Disease, DI for Chronic Obstructive Pulmonary Disease, Preventing the Spread of Coronavirus Discharge Instructions Additional Instructions: Drink plenty of fluids. Take tylenol or ibuprofen for pain or fever. Take the medications as directed. Follow up with your regular doctor. GO TO THE ER FOR ANY WORSENING SYMPTOMS Quarantine until you know the results of your covid-19 test. If it is positive, the health department should call you and give you further instructions about your length of Quarantine and other thing. The cough medication (promethazine dm) will make you drowsy, so don't drive or operate heavy machinery after taking it. Prescriptions: Promethazine/Dextromethorphan [Promethazine-Dm Syrup] 5 ml PO Q6HP PRN #240 syrup PRN Reason: Cough Transmission Status: Received by [facility] Amoxicillin/Potassium Clav [Augmentin 875-125 Tablet] 1 tab PO Q12H 10 Days #20 tab Transmission Status: Received by [facility] guaiFENesin [Mucinex 600mg tablet] 1 - 2 tab PO BIDP PRN #30 tab.er.12h PRN Reason: Congestion Transmission Status: Received by [facility] Benzonatate [Tessalon Perle 100mg Cap] 100 mg PO TIDP PRN #30 cap PRN Reason: Cough Transmission Status: Received by [facility] Referrals: Brooke Nicole MD [Primary Care Provider] - Time of Disposition: 14:31 Medical Decision Making - Medical Records Medical records reviewed: No: I reviewed the patient's medical records. - Neel Inquiry Pt receiving controlled substance: No Vital Signs: 03/05/21 13:52 03/05/21 14:38 Temperature 98.0 F 98.0 F Temperature Source Oral Pulse Rate 66 Pulse Rate [Right Radial] 66 Respiratory Rate 20 20 Blood Pressure 149/73 H Blood Pressure [Right Arm] 149/73 H Blood Pressure Mean [Right Arm] 98 Blood Pressure Position [Right Arm] Sitting 02 Sat by Pulse Oximetry 93 L Oxygen Delivery Method Room Air - Radiology Data #1 Image(s): Chest Image Reviewed: Yes I reviewed the patient's radiology image, Yes I have reviewed radiologist's interpretation Preliminary Findings: No Infiltrates Seen FINDINGS: The cardiomediastinal silhouette and pulmonary vascularity are within normal limits. No lobar consolidation or collapse. Vague opacity overlies the left 6th rib anteriorly at 9 mm and could represent a nipple shadow. Confirmation could be obtained with follow-up. No acute bony abnormalities. IMPRESSION: No acute finding. Possible nipple shadow left lower lobe Dictated by: Nicholas Young MD 03/05/2021 14:10 Nicholas Young MD in [place] 03/05/2021 14:10 [facility] HPI - General Stated complaint: chest congestion,cough Time Seen by Provider: 03/05/21 14:25 Mode of Arrival: Ambulatory Source of Information: Patient Limitations: No Limitations Description of Symptoms (Recalled from Triage Doc. by RN): pt reports chest congestion for approx 1 week HEENT Symptoms (Recalled from RN notes): No Resp Symptoms (Recalled from RN notes): Yes (Pt reports chest congestion x1 week) Skin Symptoms (Recalled from RN notes): No MS Symptoms (Recalled from RN notes): No Functional Status (Recalled from RN notes): n/a - History of Present Illness Provider Complaint: He c/o chest and sinus congestion for the past 1 week. - Related Data Home Medications Medication Instructions Recorded Confirmed Aspirin [Aspir 81] 81 mg PO HS 07/23/17 03/05/21 Gabapentin [Gabapentin 300mg Cap] 300 mg PO TID 07/23/17 03/05/21 Metformin HCl [Metformin ER 500 mg PO DAILY 07/23/17 03/05/21 Osmotic] hydrochlorothiazide 12.5 mg tablet 12.5 mg PO DAILY #30 tab 12/19/18 03/05/21 montelukast 10 mg tablet 10 mg PO DAILY tab 03/05/21 03/05/21 prednisone 10 mg tablet 10 mg PO DAILY tab 03/05/21 03/05/21 t
[2021-03-05 14:38] VITALS: BP 149/73; PULSE 66; RESP 20; TEMP 36.7; O2SAT 93
== END 2021-03-05 14:40 | disposition home or self-care (01) ==
PROVIDERS: Emergency Provider Nurse Practitioner Family; PCP Family Medicine
DX: J44.1 Chronic obstructive pulmonary disease with (acute) exacerbation (principal); E11.9 Type 2 diabetes mellitus without complications; E78.5 Hyperlipidemia, unspecified; I10 Essential (primary) hypertension; Z87.891 Personal history of nicotine dependence; Z79.899 Other long term (current) drug therapy
CPT/HCPCS: G0463; 36415; 71046; 82607; 82746; 84436; 84439; 84443; 99202

== ENCOUNTER → 2021-03-09 09:25 | Outpatient (CLI) | payer MEDICARE, SELFPAY ==
--- NOTE | 2021-03-09 13:14 | MR_ITS ---
PROCEDURE: MR HEAD/BRAIN WO CON CLINICAL INDICATION: movement disorder COMPARISON: No exams were available for comparison TECHNIQUE: Routine multiplanar multi echo sequences are performed without gadolinium enhancement. FINDINGS: No midline shift, mass effect, intracranial hemorrhage, or hydrocephalus. The cerebellopontine angles, cerebellum, and brainstem have an unremarkable appearance. There are few nonspecific T2 white matter hyperintensities which may be related to the normal aging process. There is mild generalized atrophy. The atrophy appears greater in the frontal lobes. The pituitary, optic chiasm, corpus callosum, and craniocervical junction have an unremarkable appearance. No mastoid effusion or sinus air-fluid level. Mucosal thickening involves the left ethmoid sinuses IMPRESSION: No acute intracranial findings. Senescent changes consisting of atrophy and minimal T2 white matter hyperintensities the atrophy does appears slightly greater in the frontal lobes compared to the remaining brain Dictated by: Nicholas Young MD 03/09/2021 14:33 Nicholas Young MD in [place] 03/09/2021 14:33
== END ==
PROVIDERS: PCP Family Medicine; Visit Provider Specialist
DX: G25.9 Extrapyramidal and movement disorder, unspecified (principal)
CPT/HCPCS: 70551; 95816; 95819

== ENCOUNTER → 2021-04-28 12:31 | Outpatient (CLI) | payer MEDICARE, SELFPAY ==
[2021-04-28 13:45] VITALS: PULSE 64; PULSE 70
--- NOTE | 2021-04-28 14:37 | CT_ITS ---
PROCEDURE: CT HR CHEST X3 CLINICAL HISTORY: soa and HR x3 nodule r06.02 cws COMPARISON: CT CT LUNG SCREENING from 04/29/2020 TECHNIQUE: Axial images obtained with sagittal and coronal reformats. All CT scans at the facility use one or more dose reduction, viz: automated exposure control, ma/kV adjustment per patient size (including targeted exams where dose is matched to indication, i.e. head), or iterative reconstruction technique. High-resolution images also performed in inspiration, expiration, prone position. FINDINGS: No mediastinal or hilar mass or adenopathy. Coronary artery calcifications are present. COPD changes. Scattered small fissural nodules as before. Stable 3 mm nodule left upper lobe anteriorly image 16, 3 mm nodule left upper lobe laterally image 22, 3 mm subpleural nodule left lower lobe image 31. No suspicious pulmonary nodule apparent. Mild atelectatic or fibrotic change in the right lung base posterior medially. High-resolution images show no obvious interlobular septal thickening. No bronchiectasis.. No significant air trapping IMPRESSION: COPD changes with stable small pulmonary nodules. No suspicious nodule apparent. No evidence of interstitial lung disease or pulmonary fibrosis. Minimal atelectatic or fibrotic change in the right lung base medially Dictated by: Nicholas Young MD 05/10/2021 09:18 Nicholas Young MD in [place] 05/10/2021 09:22
== END ==
PROVIDERS: PCP Family Medicine; Visit Provider Internal Medicine Pulmonary Disease
DX: R06.02 Shortness of breath
CPT/HCPCS: 71250; 94060; 94618; 94640; 94727; 94729

== ENCOUNTER → 2022-01-26 09:33 | Outpatient (CLI) | payer MEDICARE, SELFPAY ==
[2022-01-26 10:31] LABS: Bilirubin,Unconjugated 0.6 mg/dL (0.0-1.1)
[2022-01-26 10:32] LABS: Alanine Aminotransferase 24 U/L (12-78); Alkaline Phosphatase 124 U/L (38-126); Aspartate Amino Transferase 34 U/L (17-59); Bilirubin,Direct 0.1 mg/dl (0.0-0.4); Bilirubin,Indirect 0.6 mg/dL (0.0-0.9); Bilirubin,Total 0.7 mg/dl (0.2-1.3); Chol/HDL Ratio 4.4 (1-3.5); Cholesterol 149 mg/dl (140-200); HDL Cholesterol 34 mg/dl (40-60); Total Protein,Serum 7.2 g/dl (6.3-8.2); Triglycerides 121 mg/dl (30-150); VLDL Cholesterol 24 mg/dL (0-40)
[2022-01-26 10:43] LABS: Direct LDL Cholesterol 94.38 mg/dL (100-129)
== END ==
PROVIDERS: PCP Family Medicine; Visit Provider Internal Medicine
DX: E11.9 Type 2 diabetes mellitus without complications (principal); E78.5 Hyperlipidemia, unspecified; I10 Essential (primary) hypertension; I25.10 Atherosclerotic heart disease of native coronary artery without angina pectoris; Z87.891 Personal history of nicotine dependence; Z79.899 Other long term (current) drug therapy
CPT/HCPCS: 36415; 80061; 80076

== ENCOUNTER 2022-02-05 13:02 | Emergency (ER) | payer MEDICARE, SELFPAY ==
[2022-02-05 13:07] VITALS: BP 120/79; PULSE 62; RESP 18; TEMP 36.7; O2SAT 94; BMI 28.8
[2022-02-05 13:15] VITALS: BP 120/79; PULSE 62; RESP 18; TEMP 36.7; O2SAT 94; BMI 28.8
--- NOTE | 2022-02-05 13:29 | HMH.EDUTC ---
[facility] Disposition Clinical Impression: Skin problem Disposition: Home, Self-Care Condition on Discharge: Good Instructions: Cellulitis, DI for Pseudogout Additional Instructions: Take medication as prescribed Follow up with your Family Doctor if no improvement or any worsening of symptoms Return if needed Straight to ER if any life threatening symptoms Prescriptions: Amoxicillin/Potassium Clav [Amox-Clav 875-125 mg Tablet] 1 tab PO BID #20 tab Transmission Status: Received by [facility] methylPREDNISolone [Medrol 4mg tab] 4 mg PO DIRECTED #21 tab Transmission Status: Received by [facility] Referrals: Brooke Nicole MD [Primary Care Provider] - As needed Time of Disposition: 14:40 Medical Decision Making - Neel Inquiry Pt receiving controlled substance: No Neel was queried for this patient: No Vital Signs: 02/05/22 13:07 02/05/22 13:15 02/05/22 13:33 Temperature 98.1 F 98.1 F 98.1 F Temperature Source Oral Oral Oral Pulse Rate 62 Pulse Rate [Left Radial] 62 62 Respiratory Rate 18 18 18 Blood Pressure 120/79 Blood Pressure [Left Arm] 120/79 120/79 Blood Pressure Mean [Left Arm] 92 92 Blood Pressure Source Automatic Cuff Blood Pressure Source [Left Arm] Automatic Cuff Automatic Cuff Blood Pressure Position Sitting Blood Pressure Position [Left Arm] Sitting 02 Sat by Pulse Oximetry 94 L 94 L Oxygen Delivery Method Room Air Room Air - Lab Data Lab results reviewed: Yes: I reviewed the patient's lab results. Lab Results 02/05/22 13:59: Uric Acid 7.2 - Radiology Data #1 Image(s): Wrist Image Reviewed: Yes I have reviewed radiologist's interpretation IMPRESSION: No acute process. Medical Decision Narrative: medication discussed with pharmacy Patient states that he is allergic to Cephalexin but has taken both Augmentin and Medrol in the past without reactions or complications [facility] HPI - General Stated complaint: rt wrist pain Time Seen by Provider: 02/05/22 13:29 Description of Symptoms (Recalled from Triage Doc. by RN): Pt c/o R wrist pain x2 days. Pt states no injury. Small amount of swelling noted with small abrasion like area. Pt denies numbness/tingling or fevers. [ End ] HEENT Symptoms (Recalled from RN notes): No Resp Symptoms (Recalled from RN notes): No Skin Symptoms (Recalled from RN notes): Yes MS Symptoms (Recalled from RN notes): No Functional Status (Recalled from RN notes): wnl - History of Present Illness Provider Complaint: Patient that he has been having pain and swelling in right wrist denies known injury but does have an abrasion on his wrist where it is tender States that he feels like it is more swollen today and hurts when he touches it so he came in to get it checked out - Related Data Home Medications Medication Instructions Recorded Confirmed Aspirin [Aspir 81] 81 mg PO HS 07/23/17 01/26/22 Metformin HCl [Metformin ER 500 mg PO DAILY 07/23/17 01/26/22 Osmotic] hydrochlorothiazide 12.5 mg tablet 12.5 mg PO DAILY #30 tab 12/19/18 01/26/22 duloxetine 30 mg capsule,delayed 30 mg PO DAILY cap 06/09/21 01/26/22 release gabapentin 300 mg capsule 300 mg PO BID cap 06/09/21 01/26/22 prednisone 10 mg tablet 5 mg PO Q OTHER DAY tab 06/09/21 01/26/22 primidone 50 mg tablet 50 mg PO HS tab 06/09/21 01/26/22 amoxicillin 875 mg-potassium 1 tab PO Q12H 07/28/21 01/26/22 clavulanate 125 mg tablet hydrocodone-homatropine 5 mg-1.5 1 tab PO TID PRN 07/28/21 01/26/22 mg tablet tramadol 50 mg tablet 50 mg PO TID PRN 07/28/21 01/26/22 Previous Rx's Medication Instructions Recorded fluticasone propionate 50 1 spray INTRANASAL DAILY #9.9 ml 11/26/20 mcg/actuation nasal spray,suspension levocetirizine 5 mg tablet 5 mg PO DAILY PRN #30 tab 11/26/20 Promethazine/Dextromethorphan 5 ml PO Q6HP PRN #240 syrup 03/05/21 [Promethazine-Dm Syrup] azelastine 137 mcg (0.1 %) nasal 2 spray INTRANAS
--- NOTE | 2022-02-05 13:30 | XR_ITS ---
FINAL REPORT CLINICAL HISTORY: PAIN FINDINGS: RIGHT WRIST Three views were obtained. There is no acute fracture or dislocation. Mild degenerative changes are present. No soft tissue abnormality is identified. IMPRESSION: No acute process. Reviewed, Interpreted and Dictated by Kvng Nava III, MD Transcribed by Jackie Mckeon Authenticated and [facility]
[2022-02-05 13:33] VITALS: BP 120/79; PULSE 62; RESP 18; TEMP 36.7; O2SAT 95
[2022-02-05 14:17] LABS: Uric Acid 7.2 mg/dl (3.5-8.5)
== END 2022-02-05 14:52 | disposition home or self-care (01) ==
PROVIDERS: Emergency Provider Nurse Practitioner; PCP Family Medicine
DX: S60.211A Contusion of right wrist, initial encounter (principal); I10 Essential (primary) hypertension; K21.9 Gastro-esophageal reflux disease without esophagitis; E78.5 Hyperlipidemia, unspecified; E10.9 Type 1 diabetes mellitus without complications; N20.0 Calculus of kidney; K44.9 Diaphragmatic hernia without obstruction or gangrene; M19.90 Unspecified osteoarthritis, unspecified site; H26.9 Unspecified cataract; J44.9 Chronic obstructive pulmonary disease, unspecified; F17.210 Nicotine dependence, cigarettes, uncomplicated; Z79.51 Long term (current) use of inhaled steroids; Z79.52 Long term (current) use of systemic steroids; Z79.82 Long term (current) use of aspirin; Z79.84 Long term (current) use of oral hypoglycemic drugs; Z79.899 Other long term (current) drug therapy; Z82.49 Family history of ischemic heart disease and other diseases of the circulatory system; Z83.3 Family history of diabetes mellitus; Z80.9 Family history of malignant neoplasm, unspecified; Z83.49 Family history of other endocrine, nutritional and metabolic diseases
CPT/HCPCS: 73110; 84550; 99213; G0463

== ENCOUNTER → 2022-08-06 12:02 | Outpatient (CLI) | payer MEDICARE, SELFPAY ==
[2022-08-06 18:44] LABS: Basophils # 0.2 K/mm3 (0-0.2); Eosinophils # 0.9 K/mm3 (0.0-0.4); Eosinophils % 8.8 % (0.1-12.0); Hemoglobin 15.2 g/dL (14.1-18.0); Lymphocytes # 2.5 K/mm3 (0.7-4.5); Lymphocytes % 24.3 % (10-50); Mean Corpuscular HGB Conc 31.6 g/dL (31.8-35.4); Mean Corpuscular Hemoglobin 30.3 pg (27.0-31.2); Mean Corpuscular Volume 95.8 fl (80-94); Mean Platelet Volume 11.5 fl (7.4-10.4); Monocytes % 9.7 % (1.7-9.3); Neutrophils # 5.7 K/mm3 (1.8-7.8); Neutrophils % 55.1 % (37.0-80.0); Platelet Count 300 K/mm3 (142-424); Red Blood Count 5.01 M/mm3 (4.60-6.20); Red Cell Distribution Width 13.7 % (11.5-17.5); White Blood Count 10.3 K/mm3 (4.8-10.8)
[2022-08-06 18:57] LABS: Alanine Aminotransferase 20 U/L (12-78); Albumin Level 3.9 g/dl (3.5-5.0); Albumin/Globulin Ratio 1.4 (1.1-1.8); Alkaline Phosphatase 106 U/L (38-126); Anion Gap 9.3 mEq/L (5-15); Aspartate Amino Transferase 31 U/L (17-59); Bilirubin,Total 0.6 mg/dl (0.2-1.3); Blood Urea Nitrogen 31 mg/dl (9-20); Calcium 8.8 mg/dl (8.4-10.2); Carbon Dioxide 30 mmol/L (22.0-30.0); Chloride 105 mmol/L (98-107); Estimated Glomerular Filt Rate 49 ml/min (>60); GFR (African American) 60 ML/MIN (>60); Globulin 2.8 g/dL (1.3-3.2); Glucose 82 mg/dl (74-100); Potassium 4.3 mmoL/L (3.5-5.1); Sodium 140 mmol/L (136-145); Total Protein,Serum 6.7 g/dl (6.3-8.2)
== END ==
PROVIDERS: PCP Family Medicine; Visit Provider Family Medicine
DX: J44.9 Chronic obstructive pulmonary disease, unspecified (principal); E11.9 Type 2 diabetes mellitus without complications; Z79.84 Long term (current) use of oral hypoglycemic drugs
CPT/HCPCS: 80053; 85025

== ENCOUNTER 2022-09-01 12:07 | Emergency (ER) | payer MEDICARE, SELFPAY ==
[2022-09-01 12:09] VITALS: BP 125/64; PULSE 63; RESP 18; TEMP 36.7; O2SAT 95; BMI 27.3
--- NOTE | 2022-09-01 12:12 | PC.NURSE ---
DR EDWARDS AT BEDSIDE
--- NOTE | 2022-09-01 12:13 | XR_ITS ---
FINAL REPORT CLINICAL HISTORY: trauma COMPARISON: 11/15/2019 FINDINGS: AP, lateral and oblique views of the left knee were obtained. There is no prior exam for comparison. There is no acute osseous abnormality of the left knee. There is mild degenerative joint disease. The soft tissues are normal. There is no joint effusion. IMPRESSION: No acute osseous abnormality of the left knee. Reviewed, Interpreted and Dictated by Tangela Dunbar MD Transcribed by Jessica Smith Authenticated and [facility]
--- NOTE | 2022-09-01 12:13 | HMH.EDGENADL ---
Discharge Plan Disposition Patient Disposition: Home, Self-Care Condition: Good Prescriptions Prescriptions: No Action levocetirizine [Xyzal] 5 mg tablet 5 mg PO DAILY PRN (Reason: allergy symptoms) Qty: 30 4RF metoprolol succinate 25 mg tablet extended release 24 hr 25 mg PO DAILY Qty: 90 3RF albuterol sulfate 90 mcg/actuation HFA aerosol inhaler 2 inh inhalation Q4-6H PRN (Reason: shortness of breath or wheezing) Qty: 8.5 1RF Advair HFA 230-21 mcg/actuation HFA aerosol inhaler 2 puff inhalation BID PRN (Reason: COPD) Qty: 12 2RF methylprednisolone [Medrol (Rickie)] 4 mg tablets,dose pack See Rx Instructions PO PER PKG DIR Qty: 21 0RF Rx Instructions: PO PER PKG DIR tramadol 50 mg tablet 50 mg PO TID PRN (Reason: pain) Qty: 60 1RF meloxicam 15 mg tablet 15 mg PO DAILY Qty: 30 2RF omeprazole 40 mg capsule,delayed release(DR/EC) 40 mg PO DAILY Qty: 90 3RF primidone 50 mg tablet 50 mg PO HS Qty: 30 2RF hydrochlorothiazide 12.5 mg tablet 12.5 mg PO DAILY Qty: 90 0RF metformin 500 mg tablet extended release 24hr 500 mg PO DAILY Qty: 90 0RF atorvastatin 20 mg tablet See Rx Instructions .ROUTE .COMPLEX Qty: 30 5RF Dose Instruction: TAKE ONE TABLET BY MOUTH NIGHTLY AT BEDTIME Rx Instructions: TAKE ONE TABLET BY MOUTH NIGHTLY AT BEDTIME gabapentin 300 mg capsule See Rx Instructions .ROUTE .COMPLEX Qty: 60 2RF Dose Instruction: Take 1 Capsule by mouth twice daily for pain. Rx Instructions: Take 1 Capsule by mouth twice daily for pain. aspirin 81 MG tablet,delayed release (DR/EC) 81 mg PO HS Referrals Follow up/Referrals: Chace Hernández JR, MD [Physician] - See instructions Brooke Nicole MD [Primary Care Provider] - See instructions Activity Restrictions/Add. Instructions Additional Instructions/Restrictions: Rest the knee. Apply ice as needed for discomfort. Avoid prolonged walking and excessive weightbearing. Follow-up with the orthopedic surgeon promptly. Clinical Impressions Clinical Impression: Left knee sprain Discharge ED Provider: Nahum Marquez General Adult HPI General Chief complaint: Extremity Injury, Lower Stated complaint: [id number] left knee pain Time Seen by Provider: 09/01/22 12:13 History of Present Illness HPI narrative: Patient presents with a 3-day history of left knee pain after his dog ran into the knee. He denies additional injuries. He does note the pain is worse with walking and he describes the pain as moderate in severity. Related Data Home Medications Medication Instructions Recorded Confirmed aspirin 81 mg tablet,delayed 81 mg PO HS heart 07/23/17 08/06/22 release Previous Rx's Medication Instructions Recorded levocetirizine 5 mg tablet (Xyzal) 5 mg PO DAILY PRN allergy symptoms 11/26/20 #30 tabs metoprolol succinate 25 mg 25 mg PO DAILY #90 tabs 07/28/21 tablet,extended release 24 hr omeprazole 40 mg capsule,delayed 40 mg PO DAILY #90 caps 01/29/22 release albuterol sulfate 90 mcg/actuation 2 inh inhalation Q4-6H PRN 05/31/22 aerosol inhaler shortness of breath or wheezing #8.5 grams primidone 50 mg tablet 50 mg PO HS #30 tabs 07/13/22 hydrochlorothiazide 12.5 mg tablet 12.5 mg PO DAILY #90 tabs 07/15/22 metformin 500 mg tablet,extended 500 mg PO DAILY Diabetes #90 tabs 07/15/22 release 24hr atorvastatin 20 mg tablet See Rx Instructions .Route 08/04/22 .COMPLEX #30 tabs fluticasone propionate 230 2 puff inhalation BID PRN COPD #12 08/06/22 mcg-salmeterol 21 mcg/actuation grams HFA inhaler (Advair HFA) meloxicam 15 mg tablet 15 mg PO DAILY #30 tabs 08/06/22 methylprednisolone 4 mg tablets in See Rx Instructions PO PER PKG DIR 08/06/22 a dose pack (Medrol (Rickie)) #21 tabs tramadol 50 mg tablet 50 mg PO TID PRN pain #60 tabs 08/06/22 gabapentin 300 mg capsule See Rx Instructions .Route 08/10/22 .COMPLEX #60 caps Allergies Allergy/AdvR
[2022-09-01 12:31] VITALS: BP 114/71; PULSE 63; O2SAT 94
--- NOTE | 2022-09-01 12:33 | PC.NURSE ---
PT TO XR
--- NOTE | 2022-09-01 12:38 | PC.NURSE ---
PT RETURNED FROM XR
[2022-09-01 13:01] VITALS: BP 102/49; PULSE 60; O2SAT 93
--- NOTE | 2022-09-01 13:17 | PC.NURSE ---
Rounded on patient; SO at BS, no other needs at this time. patient is aware that we are waiting on radiology results. call light within reach
--- NOTE | 2022-09-01 13:26 | PC.NURSE ---
DR EDWARDS AT BEDSIDE TO UPDATE PT ON POC
[2022-09-01 13:45] VITALS: BP 116/69; PULSE 60; RESP 17; TEMP 36.7; O2SAT 95
== END 2022-09-01 13:50 | disposition home or self-care (01) ==
PROVIDERS: Emergency Provider Emergency Medicine; PCP Family Medicine
DX: S83.92XA Sprain of unspecified site of left knee, initial encounter (principal); J45.909 Unspecified asthma, uncomplicated; J44.9 Chronic obstructive pulmonary disease, unspecified; I25.10 Atherosclerotic heart disease of native coronary artery without angina pectoris; I10 Essential (primary) hypertension; E78.5 Hyperlipidemia, unspecified; R91.8 Other nonspecific abnormal finding of lung field; W54.1XXA Struck by dog, initial encounter; Z87.891 Personal history of nicotine dependence; Z90.49 Acquired absence of other specified parts of digestive tract; Z80.9 Family history of malignant neoplasm, unspecified; Z83.3 Family history of diabetes mellitus; Z86.79 Personal history of other diseases of the circulatory system; Z83.42 Family history of familial hypercholesterolemia; Z82.49 Family history of ischemic heart disease and other diseases of the circulatory system
CPT/HCPCS: 73562; 99283

== ENCOUNTER → 2022-09-13 07:20 | Outpatient (CLI) | payer MEDICARE, SELFPAY ==
--- NOTE | 2022-09-13 07:32 | MR_ITS ---
FINAL REPORT CLINICAL HISTORY: sprain. MEDIAL SIDED KNEE PAIN AFTER HYPEREXTENDED KNEE. Reviewed, Interpreted and Dictated by Tangela Dunbar MD Transcribed by Kimberly Hughes Authenticated and [facility]
== END ==
LOC: RAD 07:21
PROVIDERS: PCP Family Medicine; Visit Provider Family Medicine
DX: S83.92XA Sprain of unspecified site of left knee, initial encounter (principal)
CPT/HCPCS: 73721

== ENCOUNTER → 2022-10-05 14:46 | Outpatient (CLI) | payer MEDICARE, SELFPAY ==
[2022-10-05 18:21] LABS: Adenovirus,PCR Not Detected (NotDetected); Bordetella Pertussis Not Detected (NotDetected); Chlamydophila Pneumoniae, PCR Not Detected (NotDetected); Coronavirus 19, PCR Not Detected (NotDetected); Coronavirus 229E Not Detected (NotDetected); Coronavirus NL63 Not Detected (NotDetected); Coronavirus OC43 Not Detected (NotDetected); Coronovirus HKU1,PCR Not Detected (NotDetected); Human Metapneumovirus Not Detected (NotDetected); Influenza A, PCR Not Detected (NotDetected); Influenza AH1, 2009 Not Detected (NotDetected); Influenza AH1, PCR Not Detected (NotDetected); Influenza AH3,PCR Not Detected (NotDetected); Influenza B, PCR Not Detected (NotDetected); Mycoplasma Pneumoniae, PCR Not Detected (NotDetected); Parainfluenza 1, PCR Not Detected (NotDetected); Parainfluenza 2, PCR Not Detected (NotDetected); Parainfluenza 3, PCR Not Detected (NotDetected); Parainfluenza 4, PCR Not Detected (NotDetected); Respiratory Syncytial Virus Not Detected (NotDetected); Rhinovirus/Enterovirus Not Detected (NotDetected)
[2022-10-05 18:43] LABS: Basophils # 0.2 K/mm3 (0-0.2); Basophils % 1.3 % (0.1-2.0); Eosinophils # 0.8 K/mm3 (0.0-0.4); Eosinophils % 7.4 % (0.1-12.0); Hematocrit 47.9 % (42.0-52.0); Hemoglobin 15.3 g/dL (14.1-18.0); Lymphocytes # 2.8 K/mm3 (0.7-4.5); Lymphocytes % 25.5 % (10-50); Mean Corpuscular HGB Conc 31.9 g/dL (31.8-35.4); Mean Corpuscular Hemoglobin 30.2 pg (27.0-31.2); Mean Corpuscular Volume 94.7 fl (80-94); Mean Platelet Volume 11.1 fl (7.4-10.4); Monocytes # 0.9 K/mm3 (0.1-1.0); Monocytes % 8.5 % (1.7-9.3); Neutrophils # 6.2 K/mm3 (1.8-7.8); Neutrophils % 57.2 % (37.0-80.0); Platelet Count 321 K/mm3 (142-424); Red Blood Count 5.06 M/mm3 (4.60-6.20); Red Cell Distribution Width 13.8 % (11.5-17.5); White Blood Count 10.9 K/mm3 (4.8-10.8)
== END ==
PROVIDERS: PCP Nurse Practitioner; Visit Provider Nurse Practitioner
DX: J06.9 Acute upper respiratory infection, unspecified (principal); J44.1 Chronic obstructive pulmonary disease with (acute) exacerbation; R05.3 Chronic cough
CPT/HCPCS: 85025; 87581; 87632; 87798; C9803; U0003; U0005

== ENCOUNTER 2022-10-26 13:30 | Emergency (ER) | payer MEDICARE, SELFPAY ==
[2022-10-26 13:50] VITALS: BP 118/65; PULSE 68; RESP 20; TEMP 36.7; O2SAT 100; BMI 28.1
--- NOTE | 2022-10-26 14:09 | EXP.UTC ---
Discharge Plan Disposition Patient Disposition: Home, Self-Care Condition: Good Prescriptions Prescriptions: New methocarbamol 500 mg tablet 500 mg PO BID PRN (Reason: muscle spasm) Qty: 14 0RF No Action levocetirizine [Xyzal] 5 mg tablet 5 mg PO DAILY PRN (Reason: allergy symptoms) Qty: 30 4RF albuterol sulfate 90 mcg/actuation HFA aerosol inhaler 2 inh inhalation Q4-6H PRN (Reason: shortness of breath or wheezing) Qty: 8.5 1RF Advair HFA 230-21 mcg/actuation HFA aerosol inhaler 2 puff inhalation BID PRN (Reason: COPD) Qty: 12 2RF tramadol 50 mg tablet 50 mg PO TID PRN (Reason: pain) Qty: 60 1RF aspirin 81 MG tablet,delayed release (DR/EC) 81 mg PO HS primidone 50 mg tablet See Rx Instructions .ROUTE .COMPLEX Rx Instructions: Take 1 Tablet by mouth nightly at bedtime. atorvastatin 20 mg tablet See Rx Instructions .ROUTE .COMPLEX Rx Instructions: TAKE ONE TABLET BY MOUTH NIGHTLY AT BEDTIME meloxicam 15 mg tablet 15 mg PO DAILY omeprazole 40 mg capsule,delayed release(DR/EC) 40 mg PO DAILY gabapentin 300 mg capsule See Rx Instructions .ROUTE .COMPLEX Rx Instructions: Take 1 Capsule by mouth twice daily for pain. metoprolol succinate 25 mg tablet extended release 24 hr See Rx Instructions .ROUTE .COMPLEX Rx Instructions: TAKE ONE TABLET BY MOUTH DAILY metformin 500 mg tablet extended release 24 hr See Rx Instructions .ROUTE .COMPLEX Rx Instructions: Take 1 Tablet by mouth once daily for diabetes. hydrochlorothiazide 12.5 mg tablet See Rx Instructions .ROUTE .COMPLEX Rx Instructions: Take 1 Tablet by mouth once daily. Referrals Follow up/Referrals: Brooke Nicole MD [Primary Care Provider] - See instructions Activity Restrictions/Add. Instructions Additional Instructions/Restrictions: Take your prescribed pain medication as prescribed Over the counter Muscle rubs like Biofreeze may help with the pain and discomfort Take it easy for the next couple of days and allow muscle time to heal If your doctor has said you can take it you may take Motrin and/or Tylenol as directed on the package *Ice 20 minutes every 2 hours for the first 48 hours after the initial injury followed by moist heat every 20 minutes 3-4 times a day to affected area *Muscle relaxer every 12 hours as needed for muscle spasms but remember, it WILL cause drowsiness You cannot take it and drive, operate machinery or care for small children. *Keep this area active, no movement leads to more stiffness, However take it easy and avoid heavy lifting pushing or pulling *Follow up with you family doctor if no improvement for further treatment Clinical Impressions Clinical Impression: Muscle spasm Instructions Patient Instructions: Methocarbamol, DI for Muscle Spasm Discharge ED Provider: Lovely Gregory [facility] [place] General Stated complaint: Back pain no accident Mode of Arrival: Ambulatory Source of Information: Patient Limitations: No Limitations Time Seen by Provider: 10/26/22 14:09 Description of Symptoms (Recalled from Triage Doc. by RN): back spasms on upper left side feels like it locks up HEENT Symptoms (Recalled from RN notes): No Resp Symptoms (Recalled from RN notes): No Skin Symptoms (Recalled from RN notes): No MS Symptoms (Recalled from RN notes): Yes (back pain) Functional Status (Recalled from RN notes): n/a History of Present Illness Provider Complaint: Patient states that several days ago he was moving a propane tank and felt like his back locked up on the left side just below his shoulder blade States that certain ways he moves feels like it locks up States that he hasnt falling or anything and feels like muscle spasms Related Data Home Medications Medication Instructions Recorded Confirmed aspirin 81 mg tablet,delayed 81 mg PO HS heart 07/23/17 10/26/22 release atorvastatin 20 mg tablet See Rx In
[2022-10-26 14:42] VITALS: BP 118/65; PULSE 68; RESP 20; TEMP 36.7; O2SAT 100
== END 2022-10-26 14:42 | disposition home or self-care (01) ==
PROVIDERS: Emergency Provider Nurse Practitioner; PCP Family Medicine
DX: M62.830 Muscle spasm of back (principal); M54.6 Pain in thoracic spine; E11.9 Type 2 diabetes mellitus without complications; I10 Essential (primary) hypertension; E78.5 Hyperlipidemia, unspecified; Z79.84 Long term (current) use of oral hypoglycemic drugs; X50.0XXA Overexertion from strenuous movement or load, initial encounter; Z87.891 Personal history of nicotine dependence
CPT/HCPCS: 99212; 99214; G0463

== ENCOUNTER 2022-12-02 15:07 | Emergency (ER) | payer MEDICARE, SELFPAY ==
[2022-12-02 15:08] VITALS: BP 129/68; PULSE 63; RESP 14; TEMP 36.5; O2SAT 98; BMI 26.6
[2022-12-02 15:29] VITALS: BP 129/68; PULSE 65; RESP 14; O2SAT 98
--- NOTE | 2022-12-02 15:51 | HMH.EDGENADL ---
Discharge Plan Disposition Patient Disposition: Home, Self-Care Condition: Good Prescriptions Prescriptions: New ciprofloxacin HCl [Cipro] 500 mg tablet 500 mg PO BID Qty: 20 0RF mupirocin calcium 2 % cream 1 applic topical BID Qty: 30 0RF No Action levocetirizine [Xyzal] 5 mg tablet 5 mg PO DAILY PRN (Reason: allergy symptoms) Qty: 30 4RF albuterol sulfate 90 mcg/actuation HFA aerosol inhaler 2 inh inhalation Q4-6H PRN (Reason: shortness of breath or wheezing) Qty: 8.5 1RF Advair HFA 230-21 mcg/actuation HFA aerosol inhaler 2 puff inhalation BID PRN (Reason: COPD) Qty: 12 2RF meloxicam 15 mg tablet See Rx Instructions .ROUTE .COMPLEX Qty: 30 2RF Dose Instruction: Take 1 Tablet by mouth once daily. Rx Instructions: Take 1 Tablet by mouth once daily. tramadol 50 mg tablet 50 mg PO TID PRN (Reason: pain) Qty: 60 1RF aspirin 81 MG tablet,delayed release (DR/EC) 81 mg PO HS primidone 50 mg tablet See Rx Instructions .ROUTE .COMPLEX Rx Instructions: Take 1 Tablet by mouth nightly at bedtime. atorvastatin 20 mg tablet See Rx Instructions .ROUTE .COMPLEX Rx Instructions: TAKE ONE TABLET BY MOUTH NIGHTLY AT BEDTIME omeprazole 40 mg capsule,delayed release(DR/EC) 40 mg PO DAILY gabapentin 300 mg capsule See Rx Instructions .ROUTE .COMPLEX Rx Instructions: Take 1 Capsule by mouth twice daily for pain. metoprolol succinate 25 mg tablet extended release 24 hr See Rx Instructions .ROUTE .COMPLEX Rx Instructions: TAKE ONE TABLET BY MOUTH DAILY metformin 500 mg tablet extended release 24 hr See Rx Instructions .ROUTE .COMPLEX Rx Instructions: Take 1 Tablet by mouth once daily for diabetes. hydrochlorothiazide 12.5 mg tablet See Rx Instructions .ROUTE .COMPLEX Rx Instructions: Take 1 Tablet by mouth once daily. methocarbamol 500 mg tablet 500 mg PO BID PRN (Reason: muscle spasm) Qty: 14 0RF Referrals Follow up/Referrals: Brooke Nicole MD [Primary Care Provider] - See instructions Clinical Impressions Clinical Impression: Paronychia of great toe Instructions Patient Instructions: Paronychia Print Language Print Language: Slovenian Discharge ED Provider: Jesus Garcia General Adult HPI General Chief complaint: PAIN Stated complaint: inf RT great toe, diabetic Time Seen by Provider: 12/02/22 15:56 Mode of Arrival: Ambulatory Source of Information: Patient Limitations: No Limitations Description of Symptoms (Recalled from ER Triage Doc. by RN): Arrnafisad POV to ED with complaints of a blister on the right great toe that patient noticed in the past few days. Hx of DM 2. History of Present Illness HPI narrative: Patient presents to the emergency department with a blister on his right great toe on the medial aspect. The patient states that this popped yesterday and had some associated redness. He states the redness got better and then again worsened this morning. He denies any fever. Describes some pain in the toe. States he is a diabetic. Related Data Home Medications Medication Instructions Recorded Confirmed aspirin 81 mg tablet,delayed 81 mg PO HS heart 07/23/17 11/05/22 release atorvastatin 20 mg tablet See Rx Instructions .Route 10/26/22 11/05/22 .COMPLEX . gabapentin 300 mg capsule See Rx Instructions .Route 10/26/22 11/05/22 .COMPLEX . hydrochlorothiazide 12.5 mg tablet See Rx Instructions .Route 10/26/22 11/05/22 .COMPLEX Fluid metformin 500 mg tablet,extended See Rx Instructions .Route 10/26/22 11/05/22 release 24 hr .COMPLEX diabetes metoprolol succinate 25 mg See Rx Instructions .Route 10/26/22 11/05/22 tablet,extended release 24 hr .COMPLEX . omeprazole 40 mg capsule,delayed 40 mg PO DAILY gerd 10/26/22 11/05/22 release primidone 50 mg tablet See Rx Instructions .Route 10/26/22 11/05/22 .COMPLEX . Previous Rx's M
[2022-12-02 16:08] VITALS: BP 123/66; PULSE 63; RESP 16; O2SAT 93
[2022-12-02 16:11] VITALS: BP 123/66; PULSE 66; RESP 18; TEMP 36.5; O2SAT 96
== END 2022-12-02 16:09 | disposition home or self-care (01) ==
PROVIDERS: Emergency Provider Emergency Medicine; PCP Family Medicine
DX: L03.031 Cellulitis of right toe (principal); E11.9 Type 2 diabetes mellitus without complications; Z87.891 Personal history of nicotine dependence
CPT/HCPCS: 99283; 99284

== ENCOUNTER 2022-12-28 10:09 | Emergency (ER) | payer MEDICARE, SELFPAY ==
[2022-12-28 10:10] VITALS: BP 141/79; PULSE 61; RESP 16; TEMP 36.4; O2SAT 95; BMI 26.6
--- NOTE | 2022-12-28 10:20 | XR_ITS ---
FINAL REPORT CLINICAL HISTORY: fall, rt knee pain FINDINGS: Right knee Three views were obtained. There is no acute fracture or dislocation. There are mild degenerative changes. No soft tissue abnormality is identified. IMPRESSION: No acute process. Reviewed, Interpreted and Dictated by Kvng Nava III, MD Transcribed by Jackie Mckeon Authenticated and [facility]
--- NOTE | 2022-12-28 10:20 | XR_ITS ---
FINAL REPORT CLINICAL HISTORY: fall, low back pain FINDINGS: LUMBAR SPINE Three views demonstrate no acute fracture. There are mild degenerative changes with osteophytes. Mild leftward curvature is identified. There is mild vascular calcification. There is no malalignment. IMPRESSION: No acute process. Reviewed, Interpreted and Dictated by Kvng Nava III, MD Transcribed by Jackie Mckeon Authenticated and [facility]
--- NOTE | 2022-12-28 10:22 | HMH.EDGENADL ---
Discharge Plan Disposition Patient Disposition: Home, Self-Care Condition: Fair Chief Complaint: Fall Prescriptions Prescriptions: No Action levocetirizine [Xyzal] 5 mg tablet 5 mg PO DAILY PRN (Reason: allergy symptoms) Qty: 30 4RF albuterol sulfate 90 mcg/actuation HFA aerosol inhaler 2 inh inhalation Q4-6H PRN (Reason: shortness of breath or wheezing) Qty: 8.5 1RF Advair HFA 230-21 mcg/actuation HFA aerosol inhaler 2 puff inhalation BID PRN (Reason: COPD) Qty: 12 2RF meloxicam 15 mg tablet See Rx Instructions .ROUTE .COMPLEX Qty: 30 2RF Dose Instruction: Take 1 Tablet by mouth once daily. Rx Instructions: Take 1 Tablet by mouth once daily. tramadol 50 mg tablet 50 mg PO TID PRN (Reason: pain) Qty: 60 1RF aspirin 81 MG tablet,delayed release (DR/EC) 81 mg PO HS primidone 50 mg tablet See Rx Instructions .ROUTE .COMPLEX Rx Instructions: Take 1 Tablet by mouth nightly at bedtime. atorvastatin 20 mg tablet See Rx Instructions .ROUTE .COMPLEX Rx Instructions: TAKE ONE TABLET BY MOUTH NIGHTLY AT BEDTIME omeprazole 40 mg capsule,delayed release(DR/EC) 40 mg PO DAILY gabapentin 300 mg capsule See Rx Instructions .ROUTE .COMPLEX Rx Instructions: Take 1 Capsule by mouth twice daily for pain. metoprolol succinate 25 mg tablet extended release 24 hr See Rx Instructions .ROUTE .COMPLEX Rx Instructions: TAKE ONE TABLET BY MOUTH DAILY metformin 500 mg tablet extended release 24 hr See Rx Instructions .ROUTE .COMPLEX Rx Instructions: Take 1 Tablet by mouth once daily for diabetes. hydrochlorothiazide 12.5 mg tablet See Rx Instructions .ROUTE .COMPLEX Rx Instructions: Take 1 Tablet by mouth once daily. methocarbamol 500 mg tablet 500 mg PO BID PRN (Reason: muscle spasm) Qty: 14 0RF ciprofloxacin HCl [Cipro] 500 mg tablet 500 mg PO BID Qty: 20 0RF mupirocin calcium 2 % cream 1 applic topical BID Qty: 30 0RF Referrals Follow up/Referrals: Brooke Nicole MD [Primary Care Provider] - See instructions Clinical Impressions Clinical Impression: Low back strain, Contusion of knee, right Instructions Patient Instructions: DI for Knee Sprain, DI for Back Strain or Sprain Discharge ED Provider: Yan Love General Adult HPI General Chief complaint: Fall Stated complaint: AO6/12@home pain in back and Rt leg Time Seen by Provider: 12/28/22 10:47 History of Present Illness HPI narrative: This is a 77-year-old male who stated that yesterday he misstepped and fell off of 1 step. Patient stated he thinks he twisted when he fell patient complaining of pain in the lower back and in the right knee. Patient denies any head trauma neck pain upper back pain patient denies any incontinence of stool or urine patient denied any saddle paresthesias. When I asked him about the right knee he says it do not look bad but sure hurts . Related Data Home Medications Medication Instructions Recorded Confirmed aspirin 81 mg tablet,delayed 81 mg PO HS heart 07/23/17 11/05/22 release atorvastatin 20 mg tablet See Rx Instructions .Route 10/26/22 11/05/22 .COMPLEX . gabapentin 300 mg capsule See Rx Instructions .Route 10/26/22 11/05/22 .COMPLEX . hydrochlorothiazide 12.5 mg tablet See Rx Instructions .Route 10/26/22 11/05/22 .COMPLEX Fluid metformin 500 mg tablet,extended See Rx Instructions .Route 10/26/22 11/05/22 release 24 hr .COMPLEX diabetes metoprolol succinate 25 mg See Rx Instructions .Route 10/26/22 11/05/22 tablet,extended release 24 hr .COMPLEX . omeprazole 40 mg capsule,delayed 40 mg PO DAILY gerd 10/26/22 11/05/22 release primidone 50 mg tablet See Rx Instructions .Route 10/26/22 11/05/22 .COMPLEX . Previous Rx's Medication Instructions Recorded levocetirizine 5 mg tablet (Xyzal) 5 mg PO DAILY PRN allergy symptoms 11/26/20 #30 tabs albuterol s
--- NOTE | 2022-12-28 10:36 | PC.NURSE ---
pt back to room via wheelchair from xray
[2022-12-28 11:00] VITALS: BP 118/64; PULSE 58; O2SAT 93
[2022-12-28 11:58] VITALS: BP 106/53; PULSE 54; RESP 16; TEMP 36.7
== END 2022-12-28 12:00 | disposition home or self-care (01) ==
PROVIDERS: Emergency Provider Emergency Medicine; PCP Family Medicine
DX: S39.012A Strain of muscle, fascia and tendon of lower back, initial encounter (principal); S80.01XA Contusion of right knee, initial encounter; W10.9XXA Fall (on) (from) unspecified stairs and steps, initial encounter; J44.9 Chronic obstructive pulmonary disease, unspecified; I25.10 Atherosclerotic heart disease of native coronary artery without angina pectoris; M10.9 Gout, unspecified; I10 Essential (primary) hypertension; E78.5 Hyperlipidemia, unspecified; E11.9 Type 2 diabetes mellitus without complications; Z87.891 Personal history of nicotine dependence
CPT/HCPCS: 72100; 73562; 99283

== ENCOUNTER → 2023-01-07 23:14 | Outpatient (CLI) | payer MEDICARE, SELFPAY ==
[2023-01-07 18:12] LABS: Chloride 103 mmol/L (98-107); Potassium 4.6 mmoL/L (3.5-5.1); Sodium 140 mmol/L (136-145)
[2023-01-07 18:15] LABS: Alanine Aminotransferase 28 U/L (12-78); Albumin Level 3.7 g/dl (3.5-5.0); Albumin/Globulin Ratio 1.3 (1.1-1.8); Alkaline Phosphatase 108 U/L (38-126); Anion Gap 15.6 mEq/L (5-15); Aspartate Amino Transferase 41 U/L (17-59); Bilirubin,Total 0.5 mg/dl (0.2-1.3); Blood Urea Nitrogen 23 mg/dl (9-20); Calcium 8.8 mg/dl (8.4-10.2); Carbon Dioxide 26 mmol/L (22.0-30.0); Estimated Glomerular Filt Rate 54 ml/min (>60); GFR (African American) 65 ML/MIN (>60); Globulin 2.9 g/dL (1.3-3.2); Glucose 106 mg/dl (74-100); Total Protein,Serum 6.6 g/dl (6.3-8.2)
== END ==
PROVIDERS: PCP Family Medicine; Visit Provider Family Medicine
DX: I10 Essential (primary) hypertension (principal)
CPT/HCPCS: 80053

== ENCOUNTER → 2023-01-27 10:31 | Outpatient (CLI) | payer MEDICARE, SELFPAY ==
--- NOTE | 2023-01-27 10:36 | XR_ITS ---
FINAL REPORT CLINICAL HISTORY: cough FINDINGS: Two views of the chest were obtained. The heart size and pulmonary vascularity are within normal limits. The mediastinum is normal. No acute pulmonary abnormality is identified. There is no pneumothorax. The bony thorax is intact. IMPRESSION: No active cardiopulmonary disease. Reviewed, Interpreted and Dictated by Kvng Nava III, MD Transcribed by Rebeca Coronado Authenticated and [facility]
== END ==
PROVIDERS: PCP Family Medicine; Visit Provider Internal Medicine
DX: R05.9 Cough, unspecified (principal)
CPT/HCPCS: 71046

== ENCOUNTER → 2023-02-08 23:27 | Outpatient (CLI) | payer MEDICARE, SELFPAY ==
[2023-02-08 18:54] LABS: Basophils # 0.1 K/mm3 (0-0.2); Eosinophils # 1.1 K/mm3 (0.0-0.4); Eosinophils % 9.8 % (0.1-12.0); Hematocrit 49.5 % (42.0-52.0); Hemoglobin 15.1 g/dL (14.1-18.0); Lymphocytes # 2.5 K/mm3 (0.7-4.5); Lymphocytes % 22.8 % (10-50); Mean Corpuscular HGB Conc 30.6 g/dL (31.8-35.4); Mean Corpuscular Hemoglobin 29.2 pg (27.0-31.2); Mean Corpuscular Volume 95.6 fl (80-94); Mean Platelet Volume 11.6 fl (7.4-10.4); Monocytes # 1.3 K/mm3 (0.1-1.0); Monocytes % 12.4 % (1.7-9.3); Neutrophils # 5.9 K/mm3 (1.8-7.8); Platelet Count 267 K/mm3 (142-424); Red Blood Count 5.18 M/mm3 (4.60-6.20); Red Cell Distribution Width 13.6 % (11.5-17.5); White Blood Count 10.8 K/mm3 (4.8-10.8)
[2023-02-08 19:02] LABS: Anion Gap 10.8 mEq/L (5-15); Blood Urea Nitrogen 25 mg/dl (9-20); Calcium 9.1 mg/dl (8.4-10.2); Carbon Dioxide 29 mmol/L (22.0-30.0); Chloride 107 mmol/L (98-107); Estimated Glomerular Filt Rate 59 ml/min (>60); GFR (African American) 71 ML/MIN (>60); Glucose 71 mg/dl (74-100); Potassium 4.8 mmoL/L (3.5-5.1); Sodium 142 mmol/L (136-145)
[2023-02-08 19:33] LABS: Prostate Specific Ag Screen 1.5 ng/ml (0.0-4.0)
== END ==
PROVIDERS: Internal Medicine Pulmonary Disease; PCP Family Medicine; Visit Provider Family Medicine
DX: R05.3 Chronic cough; I10 Essential (primary) hypertension; Z12.5 Encounter for screening for malignant neoplasm of prostate
CPT/HCPCS: 80048; 85025; G0103

== ENCOUNTER 2023-07-09 16:10 | Emergency (ER) | payer MEDICARE, SELFPAY ==
[2023-07-09 16:12] VITALS: BP 142/68; PULSE 62; RESP 16; TEMP 36.4; O2SAT 95; BMI 26.6
[2023-07-09 16:30] VITALS: BP 109/65; PULSE 60; O2SAT 95
--- NOTE | 2023-07-09 16:35 | XR_ITS ---
PROCEDURE INFORMATION: Exam: XR Left Hand Exam date and time: 07/09/2023 4:36 PM Age: 78 years old Clinical indication: Injury or trauma; Other: Smashed with saw blade; Work related; Blunt trauma (contusions or hematomas); Left; Little finger; Additional info: Injury; 5th digit TECHNIQUE: Imaging protocol: Radiologic exam of the left hand. Views: 3 or more views. COMPARISON: No relevant prior studies available. FINDINGS: Bones/joints: Severe osteoarthritic changes. Soft tissues: Normal. IMPRESSION: Severe osteoarthritic changes.
--- NOTE | 2023-07-09 16:39 | ED_ITS ---
Discharge Plan Disposition Patient Disposition: Home, Self-Care Chief Complaint: Extremity Injury, Upper Prescriptions Prescriptions: No Action levocetirizine [Xyzal] 5 mg tablet 5 mg PO DAILY PRN (Reason: allergy symptoms) Qty: 30 4RF albuterol sulfate 90 mcg/actuation HFA aerosol inhaler 2 inh inhalation Q4-6H PRN (Reason: shortness of breath or wheezing) Qty: 8.5 1RF Advair HFA 230-21 mcg/actuation HFA aerosol inhaler 2 puff inhalation BID PRN (Reason: COPD) Qty: 12 2RF tramadol 50 mg tablet 50 mg PO TID PRN (Reason: pain) Qty: 60 1RF metoprolol succinate 25 mg tablet extended release 24 hr See Rx Instructions .ROUTE .COMPLEX Qty: 90 3RF Dose Instruction: TAKE ONE TABLET BY MOUTH DAILY Rx Instructions: TAKE ONE TABLET BY MOUTH DAILY atorvastatin 20 mg tablet See Rx Instructions .ROUTE .COMPLEX Qty: 90 3RF Dose Instruction: TAKE ONE TABLET BY MOUTH NIGHTLY AT BEDTIME Rx Instructions: TAKE ONE TABLET BY MOUTH NIGHTLY AT BEDTIME meloxicam 15 mg tablet See Rx Instructions .ROUTE .COMPLEX Qty: 30 2RF Dose Instruction: Take 1 Tablet by mouth once daily. Rx Instructions: Take 1 Tablet by mouth once daily. omeprazole 40 mg capsule,delayed release(DR/EC) See Rx Instructions .ROUTE .COMPLEX Qty: 90 3RF Dose Instruction: Take 1 Capsule by mouth once daily. Rx Instructions: Take 1 Capsule by mouth once daily. hydrochlorothiazide 12.5 mg tablet See Rx Instructions .ROUTE .COMPLEX Qty: 90 0RF Dose Instruction: Take 1 Tablet by mouth once daily. Rx Instructions: Take 1 Tablet by mouth once daily. mupirocin calcium 2 % cream 1 applic topical BID Qty: 30 0RF primidone 50 mg tablet See Rx Instructions .ROUTE .COMPLEX Qty: 30 2RF Dose Instruction: Take 1 Tablet by mouth nightly at bedtime. Rx Instructions: Take 1 Tablet by mouth nightly at bedtime. gabapentin 300 mg capsule See Rx Instructions .ROUTE .COMPLEX Qty: 60 3RF Rx Instructions: Take 1 Capsule by mouth twice daily for pain. metformin 500 mg tablet extended release 24 hr See Rx Instructions .ROUTE .COMPLEX Qty: 90 0RF Dose Instruction: Take 1 Tablet by mouth once daily for diabetes. Rx Instructions: Take 1 Tablet by mouth once daily for diabetes. aspirin 81 MG tablet,delayed release (DR/EC) 81 mg PO HS Referrals Follow up/Referrals: Brooke Nicole MD [Primary Care Provider] - See instructions Activity Restrictions/Add. Instructions Additional Instructions/Restrictions: At this time it was felt you are safe to be discharged home. If new or worsening symptoms please do not hesitate to return the emergency department. Clinical Impressions Clinical Impression: Crush injury to finger, Finger laceration Discharge ED Provider: Federico Rivero General Adult HPI General Chief complaint: Extremity Injury, Upper Stated complaint: [id number] injury to left finger Time Seen by Provider: 07/09/23 16:14 Mode of Arrival: Ambulatory Source of Information: Patient Limitations: No Limitations Description of Symptoms (Recalled from ER Triage Doc. by RN): Presents to ED with c/o injury to the 5th digit. Patient reports he was using a sawzall and it bounced and hit the patient's finger approx. 1 hour ago. Denies blood thinner use. Bleeding controlled CLINICAL SCIENTIST History of Present Illness HPI narrative: Patient is a 78-year-old male with no pertinent past medical history who presents emergency department for evaluation of injury. Patient was using a sawzall when the bates hit his left distal pinky causing bleeding. Last Tdap unknown. He presents here for continued evaluation. Related Data Home Medications Medication Instructions Recorded Confirmed aspirin 81 mg tablet,delayed 81 mg PO HS heart 07/23/17 02/08/23 release Previous Rx's Medication Instructions Recorded levocetirizine 5 mg tablet (Xyzal) 5 mg PO DAILY PRN allergy symptoms 11/26/20 #30 tabs albuterol sulfate 90 mcg/actuation 2 inh inhalation Q4-6H PRN 05/31/22 aerosol inhaler shortness of breath or wheezing #8.5 grams fluticasone propionate 230 2 puff inhalation BID PRN COPD #12 08/06/22 mcg-salmeterol 21 mcg/actuation grams HFA inhaler (Advair HFA) tramadol 50 mg tablet 50 mg PO TID PRN pain #60 tabs 06/08/23 atorvastatin 20 mg tablet See Rx Instructions .Route 06/21/23 .COMPLEX #90 tabs metoprolol succinate 25 mg See Rx Instructions .Route 06/21/23 tablet,extended release 24 hr .COMPLEX #90 tabs gabapentin 300 mg capsule See Rx Instructions .Route 06/22/23 .COMPLEX . #60 caps hydrochlorothiazide 12.5 mg tablet See Rx Instructions .Route 06/22/23 .COMPLEX #90 tabs meloxicam 15 mg tablet See Rx Instructions .Route 06/22/23 .COMPLEX #30 tabs mupirocin calcium 2 % topical cream 1 applic topical BID #30 grams 06/22/23 omeprazole 40 mg capsule,delayed See Rx Instructions .Route 06/22/23 release .COMPLEX #90 caps primidone 50 mg tablet See Rx Instructions .Route 06/22/23 .COMPLEX #30 tabs metformin 500 mg tablet,extended See Rx Instructions .Route 06/23/23 release 24 hr .COMPLEX #90 tabs Allergies Allergy/AdvReac Type Severity Reaction Status Date / Time cephalexin [CEPHALEXIN] Allergy Unknown NA-DIZZINES Verified 02/08/23 11:44 S trimethoprim [From BACTRIM] Allergy Unknown NA-DIZZINES Verified 02/08/23 11:44 S topiramate [From Topamax] AdvReac Severe Chest Pain Verified 02/08/23 11:44 carbamazepine [From Tegretol] AdvReac Intermediate Flushing Verified 02/08/23 11:44 clarithromycin [From Biaxin] AdvReac Intermediate Gastrointestinal Verified 02/08/23 11:44 Upset sulfamethoxazole AdvReac Unknown NA-DIZZINES Verified 02/08/23 11:44 [From BACTRIM] S PFSH PFS Disclaimer: The information contained in this section may have been updated after the patient was seen, as this information can be updated by other users. Medical History (Updated 07/09/23 @ 17:27 by Federico Rivero MD) Abnormal EKG Abnormal PFT Allergic rhinitis, unspecified Arthropathy of hand Asthma-COPD overlap syndrome Chronic asthmatic bronchitis Chronic cough COPD (chronic obstructive pulmonary disease) COPD exacerbation Coronary artery disease Dyspnea on exertion Emphysema of lung Former smoker Gout HLD (hyperlipidemia) HTN (hypertension) Moderate persistent asthma Multiple pulmonary nodules Peripheral eosinophilia Pulmonary emphysema Restrictive lung disease Shortness of breath Skin problem Sprain of medial collateral ligament of right knee Stopped smoking with greater than 30 pack year history Type 2 diabetes mellitus Surgical History History of cholecystectomy History of hernia repair History of tonsillectomy and adenoidectomy Family History Other Cancer Diabetes Hyperlipidemia Hypertension Social History Smoking Status: Never smoker second hand exposure: No alcohol intake: never substance use type: denies use current occupational status: retired Travel in the last 8 weeks: None household members: family housing: house current occupational exposures/hazards: No caffeine: Yes ROS Obtained: Yes Systems reviewed as appropriate & no additional complaints except as documented Physical Exam General General appearance: alert and in no apparent distress Head Head exam: atraumatic and normocephalic Eye Eye exam: Present PERRL and EOMI ENT ENT exam: Present mucous membranes moist Neck Neck exam: Present normal inspection Chest Chest inspection: Present normal inspection and symmetric chest wall rise Respiratory Respiratory exam: Absent respiratory distress Cardiovascular Cardiovascular exam: Present regular rate and normal rhythm Extremities Exam Extremities exam: Present other (Well-approximated linear laceration with bruising over the left pinky finger pad. Sensation intact light touch distally. Capillary refill preserved. No nailbed involvement.) Neurological Exam Neurological exam: Present alert Psychiatric Psychiatric exam: Present normal affect Skin Skin exam: Present warm and dry Medical Decision Making Neel Inquiry Pt receiving controlled substance: No Vital Signs: 07/09/23 16:12 07/09/23 16:30 07/09/23 17:00 Temperature 97.6 F Temperature Source Oral Pulse Rate 60 60 Pulse Rate [Right] 62 Respiratory Rate 16 Blood Pressure 109/65 L 130/68 Blood Pressure [Right Arm] 142/68 H Blood Pressure Mean 80 88 Blood Pressure Mean [Right Arm] 92 Blood Pressure Source [Right Arm] Automatic Cuff Blood Pressure Position [Right Arm] Sitting 02 Sat by Pulse Oximetry 95 95 95 Oxygen Delivery Method Room Air Orders (Tests/Meds): ED MEDICATIONS Discontinued Medications Generic Name Dose Route Start Last Admin Trade Name Freq PRN Reason Stop Dose Admin Tetanus/Reduced Diphtheria/Acell Pertussis 0.5 ml 07/09/23 16:38 07/09/23 17:14 Tet/Diphth/Pert-Adult 0.5ml Syringe IM 07/09/23 16:39 0.5 ml .ONCE ONE Administration ORDERS Category Date Time Status XR hand LT min 3V Stat Exams 07/09/23 16:35 Taken Medical Decision Narrative: In summary patient is a 78-year-old male with past medical history described above who presents emergency department for evaluation of trauma to his left pinky finger. Patient is hemodynamically stable upon arrival. Based on history and physical exam limited differential includes laceration, tuft fracture, among others. Limited workup will be conducted with plain film of the left pinky. Initial inventions include Tdap. X-ray informally interpreted by me, no acute significantly displaced fracture. Laceration was glued at bedside with success and patient is appropriate for discharge at this time. Patient was given return precautions with expected infection and verbalized understanding. Procedure: Procedure performed laceration repair. Procedure performed by Federico Rivero. Location of laceration was left volar pinky finger pad, length is 1 cm. Using Hibiclens and 500 cc of water wound was irrigated. Wound was closed with Dermabond. Subsequently dressed with nonstick dressing. Patient tolerated procedure well. There were no immediate complications. Critical Care Critical Care Time Critical Care Time: No
[2023-07-09 17:00] VITALS: BP 130/68; PULSE 60; O2SAT 95
[2023-07-09] MEDS: TET/DIPHTH/PERT-ADULT 0.5ML SYRINGE 0.5 ML IM (17:14)
--- NOTE | 2023-07-09 17:30 | PC.NURSE ---
WRAPPED PT RIGHT PINKY FINGER AFTER CLEANED AND GLUED CUT
[2023-07-09 17:32] VITALS: BP 130/68; PULSE 58; RESP 16; TEMP 36.4; O2SAT 95
== END 2023-07-09 17:34 | disposition home or self-care (01) ==
PROVIDERS: Emergency Provider Emergency Medicine; PCP Family Medicine
DX: S61.215A Laceration without foreign body of left ring finger without damage to nail, initial encounter (principal); J44.9 Chronic obstructive pulmonary disease, unspecified; E78.5 Hyperlipidemia, unspecified; I11.9 Hypertensive heart disease without heart failure; E11.9 Type 2 diabetes mellitus without complications; I25.10 Atherosclerotic heart disease of native coronary artery without angina pectoris; Z79.84 Long term (current) use of oral hypoglycemic drugs; Z23 Encounter for immunization; W31.2XXA Contact with powered woodworking and forming machines, initial encounter; Z87.891 Personal history of nicotine dependence
CPT/HCPCS: 73130; 90471; 90715; 99283

== ENCOUNTER 2023-08-16 20:36 | Outpatient (CLI) | payer MEDICARE, SELFPAY | END 2023-08-16 23:59 | LOC: LAB.DROPOF 20:36 | PROVIDERS: PCP Family Medicine; Visit Provider Family Medicine | DX: E11.9 Type 2 diabetes mellitus without complications (principal); Z79.84 Long term (current) use of oral hypoglycemic drugs ==

== ENCOUNTER 2024-01-17 11:00 | Outpatient (CLI) | payer MEDICARE, SELFPAY ==
[2024-01-17 19:00] LABS: Basophils # 0.1 K/mm3 (0-0.2); Basophils % 1.3 % (0.1-2.0); Eosinophils # 0.9 K/mm3 (0.0-0.4); Hematocrit 50.7 % (42.0-52.0); Hemoglobin 15.8 g/dL (14.1-18.0); Lymphocytes # 2.4 K/mm3 (0.7-4.5); Lymphocytes % 22.6 % (10-50); Mean Corpuscular HGB Conc 31.1 g/dL (31.8-35.4); Mean Corpuscular Volume 99.7 fl (80-94); Mean Platelet Volume 11.6 fl (7.4-10.4); Monocytes # 1.1 K/mm3 (0.1-1.0); Neutrophils # 6.2 K/mm3 (1.8-7.8); Neutrophils % 57.9 % (37.0-80.0); Platelet Count 243 K/mm3 (142-424); Red Blood Count 5.09 M/mm3 (4.60-6.20); White Blood Count 10.7 K/mm3 (4.8-10.8)
[2024-01-17 19:44] LABS: Alanine Aminotransferase 28 U/L (12-78); Albumin Level 3.8 g/dl (3.5-5.0); Albumin/Globulin Ratio 1.2 (1.1-1.8); Alkaline Phosphatase 111 U/L (38-126); Aspartate Amino Transferase 32 U/L (17-59); Bilirubin,Total 0.6 mg/dl (0.2-1.3); Blood Urea Nitrogen 27 mg/dl (9-20); Calcium 9.5 mg/dl (8.4-10.2); Carbon Dioxide 31 mmol/L (22.0-30.0); Chloride 105 mmol/L (98-107); Estimated Glomerular Filt Rate 54 ml/min (>60); GFR (African American) 65 ML/MIN (>60); Globulin 3.1 g/dL (1.3-3.2); Glucose 83 mg/dl (74-100); Sodium 142 mmol/L (136-145); Total Protein,Serum 6.9 g/dl (6.3-8.2)
[2024-01-17 19:55] LABS: Anion Gap 11.5 mEq/L (5-15); Potassium 5.5 mmoL/L (3.5-5.1)
== END 2024-01-17 23:59 | disposition home or self-care (01) ==
LOC: LAB.DROPOF 01-18 11:02
PROVIDERS: PCP Family Medicine; Visit Provider Family Medicine
DX: J44.9 Chronic obstructive pulmonary disease, unspecified (principal); I10 Essential (primary) hypertension; R05.9 Cough, unspecified
CPT/HCPCS: 80053; 85025

== ENCOUNTER 2024-02-01 11:46 | Outpatient (CLI) | payer MEDICARE, SELFPAY ==
[2024-02-01 19:34] LABS: Anion Gap 9.7 mEq/L (5-15); Blood Urea Nitrogen 34 mg/dl (9-20); Calcium 8.9 mg/dl (8.4-10.2); Carbon Dioxide 27 mmol/L (22.0-30.0); Chloride 107 mmol/L (98-107); Estimated Glomerular Filt Rate 54 ml/min (>60); GFR (African American) 65 ML/MIN (>60); Glucose 130 mg/dl (74-100); Potassium 4.7 mmoL/L (3.5-5.1); Sodium 139 mmol/L (136-145)
== END 2024-02-01 23:59 | disposition home or self-care (01) ==
LOC: LAB.DROPOF 02-02 11:46
PROVIDERS: PCP Family Medicine; Visit Provider Family Medicine
DX: E78.5 Hyperlipidemia, unspecified (principal); R05.9 Cough, unspecified; F32.9 Major depressive disorder, single episode, unspecified; I10 Essential (primary) hypertension
CPT/HCPCS: 80048

== ENCOUNTER 2024-02-28 08:49 | Outpatient (CLI) | payer MEDICARE, SELFPAY ==
--- NOTE | 2024-02-28 08:53 | CA_ITS ---
APPROVED REPORT EXAM: Comprehensive 2D, Doppler, and color-flow Echocardiogram Publications Manager: Alicia Aiken RVT Ht: 5 ft 7 in Wt: 183lbs BSA: 1.95 BP: 118/65 mmHg Indications: DYSPENA,CAD,DD,DM,HLD TDS-LIMITED WINDOWS,SCANNED BY 2 TECHS,BEST EXAM POSSIBLE 2D Dimensions EF AP4 54.40 % GL Strain -21.6 % M-Mode Dimensions RVDd 3.34 cm (0.9-2.6) LA Diam 3.11 cm (1.9-4.0) LVDd 2.89 cm (3.5-5.7) LVDs 1.38 cm (3.5-5.7) IVSd 1.05 cm (0.6-1.1) PWd 0.54 cm (0.6-1.1) EF (Teich) 84.60% FS 52.20% EDV (Teich) 31.90 mL ESV (Teich) 4.90 mL LV Diastology E Decel Time 253 (160-240 msec) E/A Ratio 0.9 Aortic Valve AO Peak GR. 3.60 mmHg Mitral Valve MV E Max Jose L. 63.0 (40-130 cm/s) MV A Velocity 67.0 (40-130 cm/s) E/A Ratio 0.95 MV PHT 74.0 ms Pulmonary Valve PV Peak Velocity 80.0 (50-150 cm/s) Tricuspid Valve TR P. Velocity 193.00 cm/s RAP Estimate 10.00 mmHg RVSP 25.00 mmHg Left Ventricle The left ventricle is normal size. The left ventricular systolic function is normal. The left ventricular ejection fraction is within the normal range. There is increased LV wall thickness. There is normal LV segmental wall motion. Diastolic function is indeterminate. LVEF is 55%. Right Ventricle Right ventricle is mildly dilated. The right ventricular systolic function is normal. Atria The left atrium size is normal. Right atrium is mildly dilated. The interatrial septum is not well visualized. Aortic Valve The aortic valve is mildly thickened. There is no aortic valvular stenosis. No aortic regurgitation is present. Mitral Valve The mitral valve is normal in structure. No evidence of mitral valve stenosis. Trace mitral regurgitation. Tricuspid Valve The tricuspid valve leaflets are thin and pliable. Mild tricuspid regurgitation. RVSP is normal. Pulmonic Valve The pulmonic valve is not well visualized. Great Vessels The aortic root is not well visualized. The IVC is not well visualized. Pericardium There is no pericardial effusion. Other Information Study Quality: Technically Difficult Conclusion Technically difficult study due to poor accoustic windows. Normal biventricular systolic function. Mild RV dilation. Mild RA dilation. Mild TR. Electronically signed by : Mariangel Matthew MD 03/01/2024 12:12:39
== END 2024-02-28 23:59 | disposition home or self-care (01) ==
LOC: RT 08:50
PROVIDERS: PCP Family Medicine; Visit Provider Nurse Practitioner
DX: R06.00 Dyspnea, unspecified (principal); I51.89 Other ill-defined heart diseases
CPT/HCPCS: 93306

== ENCOUNTER 2024-04-11 11:55 | Emergency (ER) | payer MEDICARE, SELFPAY ==
[2024-04-11 11:57] VITALS: BP 133/64; PULSE 64; RESP 18; TEMP 36.6; O2SAT 92; BMI 26.6
[2024-04-11 12:01] VITALS: BP 133/64; PULSE 63; O2SAT 92
--- NOTE | 2024-04-11 12:08 | PC.NURSE ---
DR COX AT BEDSIDE
--- NOTE | 2024-04-11 12:12 | XR_ITS ---
FINAL REPORT CLINICAL HISTORY: cough COMPARISON: 01/27/2023 FINDINGS: 2 views of the chest were obtained . The heart is normal in size. The mediastinum is within normal limits. The lungs are clear. There is no pneumothorax. Osseous structures are unremarkable. IMPRESSION: No acute cardiopulmonary process. Reviewed, Interpreted and Dictated by Brooek Ventura MD Transcribed by Kimberly Hughes Authenticated and . [facility]
--- NOTE | 2024-04-11 12:17 | HMH.EDGENADL ---
Discharge Plan Disposition Patient Disposition: Home, Self-Care Prescriptions Prescriptions: New albuterol sulfate [Proventil HFA] 90 mcg/actuation HFA aerosol inhaler 2 inh inhalation Q6H PRN (Reason: shortness of breath or wheezing) Qty: 8.5 0RF No Action levocetirizine [Xyzal] 5 mg tablet 5 mg PO DAILY PRN (Reason: allergy symptoms) Qty: 30 4RF albuterol sulfate 90 mcg/actuation HFA aerosol inhaler 2 inh inhalation Q4-6H PRN (Reason: shortness of breath or wheezing) Qty: 8.5 1RF Advair HFA 230-21 mcg/actuation HFA aerosol inhaler 2 puff inhalation BID PRN (Reason: COPD) Qty: 12 2RF diazepam 2 mg tablet 2 mg PO HS PRN (Reason: muscle spasm) Qty: 30 1RF metoprolol succinate 25 mg tablet extended release 24 hr See Rx Instructions .ROUTE .COMPLEX Qty: 90 3RF Dose Instruction: TAKE ONE TABLET BY MOUTH DAILY Rx Instructions: TAKE ONE TABLET BY MOUTH DAILY omeprazole 40 mg capsule,delayed release(DR/EC) See Rx Instructions .ROUTE .COMPLEX Qty: 90 3RF Dose Instruction: Take 1 Capsule by mouth once daily. Rx Instructions: Take 1 Capsule by mouth once daily. mupirocin calcium 2 % cream 1 applic topical BID Qty: 30 0RF tramadol 50 mg tablet 50 mg PO TID PRN (Reason: pain) Qty: 60 1RF metformin 500 mg tablet extended release 24 hr See Rx Instructions .ROUTE .COMPLEX Qty: 90 3RF Dose Instruction: TAKE 1 TABLET BY MOUTH ONCE DAILY FOR DIABETES Rx Instructions: TAKE 1 TABLET BY MOUTH ONCE DAILY FOR DIABETES hydrochlorothiazide 12.5 mg tablet See Rx Instructions .ROUTE .COMPLEX Qty: 90 3RF Dose Instruction: TAKE 1 TABLET BY MOUTH ONCE DAILY Rx Instructions: TAKE 1 TABLET BY MOUTH ONCE DAILY meloxicam 15 mg tablet See Rx Instructions .ROUTE .COMPLEX Qty: 90 3RF Dose Instruction: TAKE 1 TABLET BY MOUTH ONCE DAILY Rx Instructions: TAKE 1 TABLET BY MOUTH ONCE DAILY primidone 50 mg tablet See Rx Instructions .ROUTE .COMPLEX Qty: 90 3RF Dose Instruction: TAKE 1 TABLET BY MOUTH EVERY NIGHT AT BEDTIME Rx Instructions: TAKE 1 TABLET BY MOUTH EVERY NIGHT AT BEDTIME gabapentin 300 mg capsule See Rx Instructions .ROUTE .COMPLEX Qty: 60 3RF Rx Instructions: Take 1 Capsule by mouth twice daily for pain. atorvastatin 20 mg tablet See Rx Instructions .ROUTE .COMPLEX Qty: 90 3RF Dose Instruction: TAKE 1 TABLET BY MOUTH EVERY NIGHT AT BEDTIME Rx Instructions: TAKE 1 TABLET BY MOUTH EVERY NIGHT AT BEDTIME aspirin 81 MG tablet,delayed release (DR/EC) 81 mg PO HS Referrals Follow up/Referrals: Brooke Nicole MD [Primary Care Provider] - See instructions Activity Restrictions/Add. Instructions Additional Instructions/Restrictions: Follow-up with primary care doctor. Please return the emerged part with any new, concerning, worsening symptoms. Use inhaler as prescribed as needed. Clinical Impressions Clinical Impression: Cough Qualifiers: Cough type: chronic Qualified Code(s): R05.3 - Chronic cough Instructions Patient Instructions: Cough Print Language Print Language: Lithuanian Discharge ED Provider: Jason Kern General Adult HPI General Chief complaint: Upper Respiratory Infection Stated complaint: cough for 6 months Time Seen by Provider: 04/11/24 11:58 Mode of Arrival: Ambulatory Source of Information: Patient Limitations: No Limitations Description of Symptoms (Recalled from ER Triage Doc. by RN): PT REPORTS ONGOING COUGH X 6 MONTHS. REPORTS OCCASIONAL PRODUCTIVE COUGH AND SINUS DRAINAGE. HX OF COPD, DOES NOT WEAR HOME O2. DENIES INCREASED SHORTNESS OF BREATH. DENIES CHEST PAIN History of Present Illness HPI narrative: This is a 79-year-old man with a past medical history of COPD, type 2 diabetes, GERD who presents with a chronic cough. States that he has had a productive cough for the last 6 months. Denies any associated chest pain. States that his shortness of breath is not any worse than usual in the setting of his COPD. States that there have been no changes to his cough over the last 6 months. States that he just decided that he wanted to get it checked out today and his PCP was not available. Related Data Home Medications ?Medication ?Instructions ?Recorded ?Confirmed aspirin 81 mg tablet,delayed 81 mg PO HS heart 07/23/17 02/21/24 release Previous Rx's ?Medication ?Instructions ?Recorded levocetirizine 5 mg tablet (Xyzal) 5 mg PO DAILY PRN allergy symptoms 11/26/20 #30 tabs albuterol sulfate 90 mcg/actuation 2 inh inhalation Q4-6H PRN 05/31/22 aerosol inhaler shortness of breath or wheezing #8.5 grams fluticasone propionate 230 2 puff inhalation BID PRN COPD #12 08/06/22 mcg-salmeterol 21 mcg/actuation grams HFA inhaler (Advair HFA) metoprolol succinate 25 mg See Rx Instructions .Route 06/21/23 tablet,extended release 24 hr .COMPLEX #90 tabs mupirocin calcium 2 % topical cream 1 applic topical BID #30 grams 06/22/23 omeprazole 40 mg capsule,delayed See Rx Instructions .Route 06/22/23 release .COMPLEX #90 caps tramadol 50 mg tablet 50 mg PO TID PRN pain #60 tabs 08/09/23 diazepam 2 mg tablet 2 mg PO HS PRN muscle spasm #30 08/16/23 tabs metformin 500 mg tablet,extended See Rx Instructions .Route 09/05/23 release 24 hr .COMPLEX #90 tabs hydrochlorothiazide 12.5 mg tablet See Rx Instructions .Route 11/28/23 .COMPLEX #90 tabs meloxicam 15 mg tablet See Rx Instructions .Route 11/28/23 .COMPLEX #90 tabs gabapentin 300 mg capsule See Rx Instructions .Route 12/27/23 .COMPLEX . #60 caps primidone 50 mg tablet See Rx Instructions .Route 12/27/23 .COMPLEX #90 tabs atorvastatin 20 mg tablet See Rx Instructions .Route 03/08/24 .COMPLEX #90 tabs albuterol sulfate 90 mcg/actuation 2 inh inhalation Q6H PRN shortness 04/11/24 aerosol inhaler (Proventil HFA) of breath or wheezing #8.5 grams Allergies Allergy/AdvReac Type Severity Reaction Status Date / Time cephalexin [CEPHALEXIN] Allergy Unknown NA-DIZZINES Verified 02/21/24 10:42 S trimethoprim [From BACTRIM] Allergy Unknown NA-DIZZINES Verified 02/21/24 10:42 S topiramate [From Topamax] AdvReac Severe Chest Pain Verified 02/21/24 10:42 carbamazepine [From Tegretol] AdvReac Intermediate Flushing Verified 02/21/24 10:42 clarithromycin [From Biaxin] AdvReac Intermediate Gastrointestinal Verified 02/21/24 10:42 Upset sulfamethoxazole AdvReac Unknown NA-DIZZINES Verified 02/21/24 10:42 [From BACTRIM] S PFSH PFS Disclaimer: The information contained in this section may have been updated after the patient was seen, as this information can be updated by other users. 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 Sprain of medial collateral ligament of right knee Restrictive lung disease Abnormal PFT Peripheral eosinophilia Asthma-COPD overlap syndrome COPD (chronic obstructive pulmonary disease) Multiple pulmonary nodules Pulmonary emphysema Allergic rhinitis, unspecified Moderate persistent asthma Stopped smoking with greater than 30 pack year history Chronic cough Dyspnea on exertion Arthropathy of hand Chronic asthmatic bronchitis Shortness of breath Emphysema of lung Gout Skin problem HLD (hyperlipidemia) HTN (hypertension) Coronary artery disease Former smoker Abnormal EKG Type 2 diabetes mellitus COPD exacerbation Surgical History (Updated 02/21/24 @ 10:42 by Susan Duron) Hx of cataract surgery History of tonsillectomy and adenoidectomy History of hernia repair History of cholecystectomy Family History Other Cancer Diabetes Hyperlipidemia Hypertension Social History Smoking Status: Former smoker tobacco type: cigarettes second hand exposure: No alcohol intake: never substance use type: denies use current occupational status: retired Travel in the last 8 weeks: None household members: family housing: house current occupational exposures/hazards: No caffeine: Yes ROS Obtained: Yes All systems reviewed & no additional complaints except as documented Physical Exam General General appearance: alert and in no apparent distress Eye Eye exam: Present normal appearance, PERRL and EOMI Respiratory Respiratory exam: Present normal lung sounds bilaterally; Absent respiratory distress Cardiovascular Cardiovascular exam: Present regular rate and normal rhythm Abdominal Exam Abdominal exam: Present soft and distention; Absent tenderness, guarding or rebound Extremities Exam Extremities exam: Present normal inspection Neurological Exam Neurological exam: Present alert and oriented X3 Skin Skin exam: Present warm and dry Medical Decision Making Medical Records Medical records reviewed: Yes I reviewed the patient's medical records. Screening: Per USPSTF and CDC recommendations, given the prevalence of disease in our region, it is our hospital?s policy to screen for HIV and viral Hepatitis for all patients aged 18 and over and those with ongoing risk factors. Neel Inquiry Pt receiving controlled substance: No Vital Signs: 04/11/24 11:57 04/11/24 12:01 Temperature 97.9 F Temperature Source Oral Pulse Rate 63 Pulse Rate [Radial] 64 Respiratory Rate 18 Blood Pressure 133/64 Blood Pressure [Left Arm] 133/64 Blood Pressure Mean [Left Arm] 87 Blood Pressure Source [Left Arm] Automatic Cuff Blood Pressure Position [Left Arm] Sitting 02 Sat by Pulse Oximetry 92 L 92 L Oxygen Delivery Method Room Air Orders (Tests/Meds): ORDERS Category Date Time Status Chest XR 2 view (NOT portable) [XR chest 2V] Stat Exams 04/11/24 12:12 Taken Medical Decision Narrative: In summary, this 79-year-old male with a past medical history of COPD, type 2 diabetes presents to the emergency department today with chronic cough for the last 6 months. On initial evaluation patient is afebrile, hemodynamically stable, nontoxic-appearing, no acute respiratory distress, clear lung sounds bilaterally. Differential diagnosis includes but is not limited to GERD, medication, reflux, COPD, pneumonia. Based on these concerns, I ordered 2 view chest x-ray. XR personally interpreted demonstrates no acute cardiopulmonary pathology. No evidence of pneumonia. On reassessment in stable condition and in no acute distress, satting 93% on room air which is acceptable with patient's past medical history of COPD. Appropriate for discharge. Prescribed albuterol inhaler to use as needed as he stated that he had no inhalers at home. Instructed follow-up with PCP. Critical Care Critical Care Time Critical Care Time: No
[2024-04-11 12:39] VITALS: BP 122/72; PULSE 63; RESP 18; TEMP 36.6; O2SAT 92
== END 2024-04-11 12:40 | disposition home or self-care (01) ==
PROVIDERS: Emergency Provider Student in an Organized Health Care Education/Training Program; PCP Family Medicine
DX: R05.3 Chronic cough (principal); J44.9 Chronic obstructive pulmonary disease, unspecified; Z87.891 Personal history of nicotine dependence
CPT/HCPCS: 71046; 99283

== ENCOUNTER 2024-04-17 11:21 | Outpatient (CLI) | payer MEDICARE, SELFPAY ==
[2024-04-17 20:41] LABS: Chloride 103 mmol/L (98-107); Potassium 5.3 mmoL/L (3.5-5.1); Sodium 141 mmol/L (136-145)
[2024-04-17 20:44] LABS: Anion Gap 11.3 mEq/L (5-15); Blood Urea Nitrogen 27 mg/dl (9-20); Calcium 9.4 mg/dl (8.4-10.2); Carbon Dioxide 32 mmol/L (22.0-30.0); Estimated Glomerular Filt Rate 54 ml/min (>60); GFR (African American) 65 ML/MIN (>60); Glucose 118 mg/dl (74-100)
[2024-04-17 20:49] LABS: Hemoglobin A1C 6.1 % (4.0-6.0)
== END 2024-04-17 23:59 | disposition home or self-care (01) ==
LOC: LAB.DROPOF 04-18 11:21
PROVIDERS: PCP Family Medicine; Visit Provider Family Medicine
DX: E11.8 Type 2 diabetes mellitus with unspecified complications (principal); J44.9 Chronic obstructive pulmonary disease, unspecified
CPT/HCPCS: 80048; 83036

== ENCOUNTER 2024-06-05 12:56 | Outpatient (CLI) | payer MEDICARE, SELFPAY ==
[2024-06-05 19:15] LABS: Alanine Aminotransferase 22 U/L (12-78); Albumin Level 3.6 g/dl (3.5-5.0); Albumin/Globulin Ratio 1.4 (1.1-1.8); Alkaline Phosphatase 108 U/L (38-126); Anion Gap 12.5 mEq/L (5-15); Aspartate Amino Transferase 32 U/L (17-59); Bilirubin,Total 0.8 mg/dl (0.2-1.3); Blood Urea Nitrogen 33 mg/dl (9-20); Calcium 8.7 mg/dl (8.4-10.2); Carbon Dioxide 28 mmol/L (22.0-30.0); Chloride 103 mmol/L (98-107); Estimated Glomerular Filt Rate 49 ml/min (>60); GFR (African American) 59 ML/MIN (>60); Globulin 2.5 g/dL (1.3-3.2); Glucose 75 mg/dl (74-100); Potassium 4.5 mmoL/L (3.5-5.1); Sodium 139 mmol/L (136-145); Total Protein,Serum 6.1 g/dl (6.3-8.2)
== END 2024-06-05 23:59 | disposition home or self-care (01) ==
LOC: LAB.DROPOF 06-06 12:58
PROVIDERS: PCP Family Medicine; Visit Provider Family Medicine
DX: E11.8 Type 2 diabetes mellitus with unspecified complications (principal); I10 Essential (primary) hypertension
CPT/HCPCS: 80053

== ENCOUNTER 2024-06-27 15:09 | Outpatient (CLI) | payer MEDICARE, SELFPAY ==
--- NOTE | 2024-06-27 15:32 | XR_ITS ---
FINAL REPORT CLINICAL HISTORY: SOB COMPARISON: 04/11/2024 FINDINGS: Two views of the chest were obtained. The heart size and pulmonary vascularity are within normal limits. The mediastinum is normal. Mild left base opacity, favor atelectasis. There is no pneumothorax. The bony thorax is intact. IMPRESSION: Mild left base opacity, favor atelectasis. Reviewed, Interpreted and Dictated by Kvng Nava III, MD Transcribed by Lynnette Fitzpatrick Authenticated and [facility]
== END 2024-06-27 23:59 | disposition home or self-care (01) ==
PROVIDERS: PCP Family Medicine; Visit Provider Internal Medicine Pulmonary Disease
DX: R06.02 Shortness of breath (principal)
CPT/HCPCS: 71046; 87070; 87205

== ENCOUNTER 2024-09-12 12:49 | Outpatient (CLI) | payer MEDICARE, SELFPAY ==
[2024-09-12] MEDS: ALBUTEROL 0.083% 2.5 MG/3 ML NEB IH (13:32)
--- NOTE | 2024-09-12 13:32 | PC.NURSE ---
PFT and 6 Minute walk complete without incident. Albuterol 0.083% given via HHN, per written protocol, Pt tolerated tx well.
== END 2024-09-12 23:59 | disposition home or self-care (01) ==
LOC: RT 12:51
PROVIDERS: PCP Family Medicine; Visit Provider Internal Medicine Pulmonary Disease
DX: R06.09 Other forms of dyspnea (principal)
CPT/HCPCS: 94010; 94618; 94727; 94729; J7613

== ENCOUNTER 2024-10-02 10:15 | Outpatient (CLI) | payer MEDICARE, SELFPAY ==
[2024-10-02 21:29] LABS: Chloride 107 mmol/L (98-107); Potassium 4.8 mmoL/L (3.5-5.1); Sodium 139 mmol/L (136-145)
[2024-10-02 21:32] LABS: Anion Gap 9.8 mEq/L (5-15); Blood Urea Nitrogen 24 mg/dl (9-20); Calcium 8.9 mg/dl (8.4-10.2); Carbon Dioxide 27 mmol/L (22.0-30.0); Estimated Glomerular Filt Rate 59 ml/min (>60); GFR (African American) 71 ML/MIN (>60); Glucose 101 mg/dl (74-100)
== END 2024-10-02 23:59 | disposition home or self-care (01) ==
LOC: LAB.DROPOF 10-03 08:48
PROVIDERS: PCP Family Medicine; Visit Provider Family Medicine
DX: E11.8 Type 2 diabetes mellitus with unspecified complications (principal)
CPT/HCPCS: 80048

== ENCOUNTER 2025-04-09 09:15 | Emergency (ER) | payer MEDICARE, SELFPAY ==
[2025-04-09] VITALS (7 sets, daily range): BP systolic 121–135; BP diastolic 65–85; PULSE 54–85; RESP 16–18; TEMP 36.6–36.9; O2SAT 91–99; BMI 28.1
--- OUTSIDE RECORDS SUMMARY | 2025-04-09 09:28 | XMS_ITS | Encounter Summary ---
Author Organization [employer] ([place], [place], [place], [place]) Address [address] [place] [address] Care Team Providers Care Parts Technician Name Role Phone Unavailable Primary Care Provider Unavailabl e Encounter Details Date Type Department Care Team (Late st Contact Info) Description 05/17/2021 Transcribed Document [facility] [place] [address] [place] [address] ProviderAbel MD [address] [place] [address] Social History Tobacco Use Types Packs/Day Years Used Date Smoking Tobacco: Never Assessed Sex and Gender Information Value Date Recorded Sex Assigned at Not on file Legal Sex Male 3:24 PM CDT Gender Identity Not on file Sexual Orientation Not on file documented as of this encounter Miscellaneous Notes * Cerner Conversion Note - Abel Tafoya MD - 05/17/2021 10:35 AM CDT DATE OF ADMISSION: 05/15/2021 DATE OF DISCHARGE: 05/17/2021 FINAL DIAGNOSES: Nonepileptic episodes. HISTORY: This is a 76-year-old man, who has had recurrent spells for the past year or so. The spells consist of jerks that can be isolated or repetitive. They varied in distribution. He often has limb jerks and at other times may have whole body jerks or jerks affecting his mid section. PAST MEDICAL HISTORY: 1. Type 2 diabetes. 2. Hypertension. 3. COPD. 4. Benign prostatic hyperplasia. HOSPITAL COURSE: The patient was admitted and had video EEG monitoring. He had frequent jerks with no associated ictal EEG change. Continuous EEG recordings showed no definitive epileptiform abnormality. DISPOSITION: I discussed the results of monitoring with Mr. Coburn and his . I told him that his spells were nonepileptic in origin. I did not recommend treatment with an antiseizure medication at this time. PHYSICAL EXAMINATION: VITAL SIGNS: On the day of discharge, blood pressure 108/66, heart rate 66 per minute and regular. HEENT: Pupils are equal and reactive. LUNGS: Clear. HEART: Regular rate and rhythm. Normal peripheral pulses. NEUROLOGIC: He is alert and well oriented. Normal language functions. Normal cranial nerves. Normal motor exam. Normal [id number]. DISCHARGE INSTRUCTIONS: 1. No driving. 2. Aspirin 81 mg daily. 3. Atorvastatin 20 mg daily. 4. Duloxetine 30 mg nightly. 5. Gabapentin 300 mg three times daily. 6. Hydrochlorothiazide 12.5 mg daily. 7. Levocetirizine 5 mg daily. 8. Metformin 500 mg daily. 9. Metoprolol 25 mg daily. 10. Prednisone 0.5 mg every other day. 11. Primidone 50 mg nightly. 12. Follow up with Dr. Lamb within 2 months. /[id number] MD HAYDEE Senior/AQ / HAYDEE / MODL /[id number] Electronically signed by Alta Goodwin Conversion Assistant Professor Of Drama Cheikhner at 11/01/2022 2:28 PM CDT documented in this encounter Plan of Treatment Not on file documented as of this encounter Visit Diagnoses Not on filedocumented in this encounter
--- OUTSIDE RECORDS SUMMARY | 2025-04-09 09:28 | XMS_ITS | Encounter Summary ---
Author Organization [employer] ([place], [place], [place], [place]) Address [address] [place] [address] Care Team Providers Care Cable Worker Helper Name Role Phone Unavailable Primary Care Provider Unavailabl e Encounter Details Date Type Department Care Team (Late st Contact Info) Description 05/15/2021 Transcribed Document [facility] [place] [address] [place] [address] ProviderAbel MD [address] [place] [address] Social History Tobacco Use Types Packs/Day Years Used Date Smoking Tobacco: Never Assessed Sex and Gender Information Value Date Recorded Sex Assigned at Not on file Legal Sex Male 3:24 PM CDT Gender Identity Not on file Sexual Orientation Not on file documented as of this encounter Miscellaneous Notes * Cerner Conversion Note - Historical ProviderMD - 05/15/2021 11:35 AM CDT Spiritual Care Short Form Entered On: 05/15/2021 15:53 EDT Performed On: 05/15/2021 11:35 EDT by ANEUDY ADAMS General Information, Spiritual Care Spiritual Care Referred by : Family Reason for Visit : Referral/Consult Ministry Provided to : Patient, Family/Significant other Intervention/Comment/Summary Points : Provided guest tray voucher for and prayer with patient and . They are active in their episcopalian. ANEUDY ADAMS - 05/15/2021 15:52 EDT documented in this encounter Plan of Treatment Not on file documented as of this encounter Visit Diagnoses Not on filedocumented in this encounter
--- OUTSIDE RECORDS SUMMARY | 2025-04-09 09:28 | XMS_ITS | Encounter Summary ---
Author Organization [employer] ([place], [place], [place], [place]) Address [address] [place] [address] Care Team Providers Care Cd Mixer Helper Name Role Phone Unavailable Primary Care Provider Unavailabl e Encounter Details Date Type Department Care Team (Late st Contact Info) Description 05/17/2021 Transcribed Document [facility] [place] [address] [place] [address] ProviderAbel MD [address] [place] [address] Social History Tobacco Use Types Packs/Day Years Used Date Smoking Tobacco: Never Assessed Sex and Gender Information Value Date Recorded Sex Assigned at Not on file Legal Sex Male 3:24 PM CDT Gender Identity Not on file Sexual Orientation Not on file documented as of this encounter Miscellaneous Notes * Cerner Conversion Note - Abel ProviderMD - 05/17/2021 10:58 AM CDT Nursing Discharge Summary Entered On: 05/17/2021 10:59 EDT Performed On: 05/17/2021 10:58 EDT by Cayla Ariza RN-PATIENT CARE BEDSIDE NON-EXEMPT Discharge Documentation Discharge Date/Time : 05/17/2021 10:58 EDT Patient Disposition, General : Discharge Discharge To : Home with ambulatory/outpatient follow-up Mode Of Departure, General Discharge : Private vehicle Accompanied By, Discharge : Spouse IV Discontinued : Yes Personal Belongings With Patient : Yes Prescriptions Given to Patient : No Discharge Instructions Reviewed With, Opportunity For Questions Given : Patient Patient Education Completed : Yes Teaching Method : Explanation, Printed materials Teaching Evaluation : Verbalizes understanding Cayla Ariza RN-PATIENT CARE BEDSIDE NON-EXEMPT - 05/17/2021 10:58 EDT Electronically signed by Christa [facility] Conversion Bottom Presser Cerner at 11/01/2022 2:34 PM CDT documented in this encounter Plan of Treatment Not on file documented as of this encounter Visit Diagnoses Not on filedocumented in this encounter
--- OUTSIDE RECORDS SUMMARY | 2025-04-09 09:28 | XMS_ITS | Encounter Summary ---
Author Organization [employer] ([place], [place], [place], [place]) Address [address] [place] [address] Care Team Providers Care Power Superintendent Name Role Phone Unavailable Primary Care Provider Unavailabl e Encounter Details Date Type Department Care Team (Late st Contact Info) Description 05/17/2021 Transcribed Document [facility] [address] [place] [address] ProviderAbel MD [address] [place] [address] Social History Tobacco Use Types Packs/Day Years Used Date Smoking Tobacco: Never Assessed Sex and Gender Information Value Date Recorded Sex Assigned at Not on file Legal Sex Male 3:24 PM CDT Gender Identity Not on file Sexual Orientation Not on file documented as of this encounter Miscellaneous Notes * Cerner Conversion Note - Abel Tafoya MD - 05/17/2021 10:33 AM CDT [address], [place] [address] Patient Copy Patient Information: Name: RODRIGO JOSIANE Yadira Current Date: 05/17/2021 10:33:22 : 1945 Patient Address: [address] [facility] [id number] Patient Attending Physician: CONCEPCION DOE MD-TRACEY Primary Care Provider: ALEXIA LEWIS DR Primary Care Provider Discharge Diagnosis: Nonepileptic episode Weight on Admission: 190 lb, 0 oz Comment: Follow-up Instructions: With: Address: When: Ce Lamb [address] [place], [place] [id number] Business (1) Within 2 months Discharge Instructions: Immunizations Documented During Stay: No Immunizations Found Heart Failure Discharge Instructions (if any): Stroke Related Discharge Instructions (if any): Warfarin Related Discharge Instructions (if any): Final Medication List: Other Medications aspirin (aspirin 81 mg oral capsule) 1 Capsule(s) Oral Every Day. atorvastatin (atorvastatin 20 mg oral tablet) 1 Tablet(s) Oral Every Day. DULoxetine 30 Milligram(s) Oral At Bedtime. gabapentin (gabapentin 300 mg oral capsule) 1 Capsule(s) Oral Three Times A Day. hydroCHLOROthiazide (hydroCHLOROthiazide 12.5 mg oral tablet) 1 Tablet(s) Oral Every Day. levocetirizine (levocetirizine 5 mg oral tablet) 1 Tablet(s) Oral Every Day. metFORMIN (metFORMIN 500 mg oral tablet) 1 Tablet(s) Oral Every Day. metoprolol (metoprolol succinate 25 mg oral capsule, extended release) 1 Capsule(s) Oral Every Day. predniSONE (predniSONE 1 mg oral tablet) 0.5 Tablet(s) Oral Every Other Day. primidone (primidone 50 mg oral tablet) 1 Tablet(s) Oral At Bedtime. Patient Allergies: carBAMazepine; Topamax; sulfa drugs; trimethoprim; clarithromycin; cephalexin Medication Instructions: Take your medications faithfully. Do NOT skip medication. Do NOT stop taking medications without the direction of a physician. Carry a list of your medications with you at all times, and take this medication list with you to your first follow up visit. Report any side effects. Avoid herbal remedies unless discussed with your physician. As part of your treatment plan, your physician may have prescribed a limited course of a controlled substance. This medication may be given to help people with moderate or severe pain or for other medical conditions, but there are risks involved with treatment. Common side effects may include nausea, constipation, drowsiness, sweating, itching, dry mouth, and rash. More serious side effects may include cognitive and motor impairment, like problems with thinking, concentrating, alertness, and movement (e.g. slowed reflexes), and driving and operating heavy machinery can be dangerous. It is important for you to talk to your physician if you have these side effects or questions. These controlled substances can produce physical dependence and be habit-forming if taken for an extended period of time, which means that the body has gotten used to them and may experience withdrawal symptoms if they are abruptly stopped. Withdrawal symptoms can include runny nose, sweating, goose bumps, diarrhea, abdominal cramping, rapid heartbeat, difficulty sleeping, and nervousness. CIGARETTE SMOKING: The facts are clear, cigarette smoking will shorten your life. Smoking can cause many illnesses along the way. As a healthcare provider, we recommend that you stop smoking. Assistance with quitting is available by contacting 2-454-XDTP-NOW. This is a free resource providing counseling, support, and referral. Or you may contact your personal physician. 4 WAYS TO GET AHEAD OF SEPSIS SEPSIS is a MEDICAL EMERGENCY. Time matters! Infections put you and your family at risk for a life-threatening condition called sepsis. Sepsis is the body???s extreme response to an infection. It is life-threatening, and without timely treatment, sepsis can rapidly lead to tissue damage, organ failure, and . Sepsis happens when an infection you already have???in your skin, lungs, urinary tract or somewhere else???triggers a chain reaction throughout your body. 1 PREVENT INFECTIONS Take good care of chronic conditions. Talk to your doctor about getting the recommended vaccines. 2 PRACTICE GOOD HYGIENE Wash your hands frequently. Keep cuts or open sores clean and covered until they are healed. 3 KNOW THE SYMPTOMS Confusion or disorientation Shortness of breath High heart rate Fever, shivering, or feeling very cold Extreme pain or discomfort Clammy or sweaty skin 4 ACT FAST Get medical care IMMEDIATELY if you suspect sepsis or if you have an infection that???s not getting better or is getting worse. To learn more about sepsis and how to prevent infections, visit www.cdc.gov/sepsis. STROKE is an EMERGENCY Every Minute Counts ACT F.A.S.T! FACE ?? Facial droop ?? Uneven smile ARM ?? Arm numbness ?? Arm weakness SPEECH ?? Slurred speech ?? Difficulty speaking or understanding TIME ?? Call 911 and get to the hospital immediately Have the ambulance go to the nearest stroke center. STROKE Risk Factors High blood pressure High cholesterol Heart Disease Diabetes Smoking Heavy alcohol use Physical inactivity and obesity Atrial Fibrillation (irregular heartbeat) Family history of stroke Reminder: Be sure to sign up for the [employer] patient portal, which gives you 07/02 access to your medical information ??? including these discharge instructions ??? using your computer, smartphone, or tablet. Just go to [facility] to get started. Questions? Call . [facility] would like to thank you for allowing us to assist you with your healthcare needs. I, RODRIGO HERNANDEZ, JOSIANE May, (or lead customer service representative) have received the above patient education materials/instructions and have verbalized understanding: Patient Signature _ Date/Time Patient Cafeteria Table Attendant Signature (if needed) Date/Time Clinician/Hospital Cafeteria Table Attendant Signature (if needed) Date/Time Electronically signed by Christa, [facility] Conversion Racing Car Driver Che[employer]ner at 11/01/2022 2:32 PM CDT documented in this encounter Plan of Treatment Not on file documented as of this encounter Visit Diagnoses Not on filedocumented in this encounter
--- OUTSIDE RECORDS SUMMARY | 2025-04-09 09:28 | XMS_ITS | Clinical Summary ---
Author Organization [facility] Address [address] [place] [id number] Phone Care Team Providers Care Imaging Tech Name Role Phone Unavailable Primary Care Provider Unavailabl e Social History Tobacco Use Types Packs/Day Years Used Date Smoking Tobacco: Never Assessed Sex and Gender Information Value Date Recorded Sex Assigned at Not on file Legal Sex Male 9:06 AM EDT Gender Identity Not on file Sexual Orientation Not on file Plan of Treatment Health Maintenance Due Date Last Done Comments Wellness Exam Medicare 1948 Hepatitis C Screening 1965 DTaP/TDaP/Td (1 - Tdap) 1966 Zoster (2 of 3) 11/25/2009 09/30/2009 RSV or 60+ (1 - 1-dose 75+ series) 2022 Pneumococcal Vaccine 50+ (2 of 2 - PCV) 04/14/2022 04/14/2021 COVID-19 Vaccine (3 - 2024-2 6 season) 2025 09/27/2020, 08/30/2020 Influenza Vaccine (#1) 2025 2, 04/14/2021, 05/01/2020 Hepatitis B Vaccine Aged Out No longe r eligible based on patient's age to complete this topic Meningococcal B Vaccine Aged Out No l onger eligible based on patient's age to complete this topic Insurance U[employer] MEDICARE COMPLETE AARP MR
--- OUTSIDE RECORDS SUMMARY | 2025-04-09 09:28 | XMS_ITS | Encounter Summary ---
Author Organization [employer] ([place], [place], [place], [place]) Address [address] [place] [address] Care Team Providers Care Board Writer Name Role Phone Unavailable Primary Care Provider Unavailabl e Encounter Details Date Type Department Care Team (Late st Contact Info) Description 05/16/2021 Transcribed Document [facility] [place] [address] [place] [address] ProviderAbel MD [address] [place] [address] Social History Tobacco Use Types Packs/Day Years Used Date Smoking Tobacco: Never Assessed Sex and Gender Information Value Date Recorded Sex Assigned at Not on file Legal Sex Male 3:24 PM CDT Gender Identity Not on file Sexual Orientation Not on file documented as of this encounter Miscellaneous Notes * Cerner Conversion Note - Abel Tafoya MD - 05/16/2021 10:33 AM CDT Patient: JOSIANE WALLACE JR Age: 76 years Sex: Male : 1945 Associated Diagnoses: None Author: CONCEPCION DOE MD-TRACEY Subjective Seizure: Yes [ ] No [ x] Event: Yes [x ] No [ ] Intermittent body jerks ROS Complaint: Yes [ ] No [ x] Headache: Yes [ ] No [ ] Cardiac: Yes [ ] No [ ] Pulmonary: Yes [ ] No [ ] GI: Yes [ ] No [ ] : Yes [ ] No [ ] Skeletal: Yes [ ] No [ ] Health Status Allergies: Allergic Reactions (Selected) Severity Not Documented CarBAMazepine- No reactions were documented. Cephalexin- No reactions were documented. Clarithromycin- No reactions were documented. Sulfa drugs- No reactions were documented. Topamax- No reactions were documented. Trimethoprim- No reactions were documented., Allergies (6) Active Reaction carBAMazepine None Documented cephalexin None Documented clarithromycin None Documented sulfa drugs None Documented Topamax None Documented trimethoprim None Documented Current medications: (Selected) Inpatient Medications Ordered DULoxetine: 30 mg, Oral, At Bedtime LORazepam: 2 mg, IV Push, Q8H, PRN: Seizures Toprol-XL: 25 mg, Oral, Daily Zofran: 4 mg, IV Push, Q6H, PRN: Nausea/Vomiting aspirin: 81 mg, Oral, Daily atorvastatin: 20 mg, Oral, Daily gabapentin: 300 mg, Oral, TID hydroCHLOROthiazide: 12.5 mg, Oral, Daily ibuprofen: 600 mg, Oral, Q6H, PRN: Headache/Pain loratadine: 10 mg, Oral, Daily metFORMIN: 500 mg, Oral, Daily predniSONE: 0.5 mg, Oral, EveryOtherDay primidone: 50 mg, Oral, At Bedtime Documented Medications Documented DULoxetine: 30 mg, Oral, At Bedtime, 0 Refill(s) aspirin 81 mg oral capsule: 1 Cap, Oral, Daily, 0 Refill(s) atorvastatin 20 mg oral tablet: 1 Tab, Oral, Daily, 0 Refill(s) gabapentin 300 mg oral capsule: 1 Cap, Oral, TID, 270 Cap, 0 Refill(s) hydroCHLOROthiazide 12.5 mg oral tablet: 1 Tab, Oral, Daily, 30 Tab, 0 Refill(s) levocetirizine 5 mg oral tablet: 1 Tab, Oral, Daily, 0 Refill(s) metFORMIN 500 mg oral tablet: 1 Tab, Oral, Daily, 0 Refill(s) metoprolol succinate 25 mg oral capsule, extended release: 1 Cap, Oral, Daily, 0 Refill(s) predniSONE 1 mg oral tablet: 0.5 Tab, Oral, EveryOtherDay, 0 Refill(s) primidone 50 mg oral tablet: 1 Tab, Oral, At Bedtime, 0 Refill(s), Home Medications (10) Active aspirin 81 mg oral capsule 81 mg = 1 Cap, Oral, Daily atorvastatin 20 mg oral tablet 20 mg = 1 Tab, Oral, Daily DULoxetine 30 mg, Oral, At Bedtime gabapentin 300 mg oral capsule 300 mg = 1 Cap, Oral, TID hydroCHLOROthiazide 12.5 mg oral tablet 12.5 mg = 1 Tab, Oral, Daily levocetirizine 5 mg oral tablet 5 mg = 1 Tab, Oral, Daily metFORMIN 500 mg oral tablet 500 mg = 1 Tab, Oral, Daily metoprolol succinate 25 mg oral capsule, extended release 25 mg = 1 Cap, Oral, Daily predniSONE 1 mg oral tablet 0.5 mg = 0.5 Tab, Oral, EveryOtherDay primidone 50 mg oral tablet 50 mg = 1 Tab, Oral, At Bedtime , Medications (13) Active Scheduled: (10) aspirin 81 mg chew tab 81 mg 1 Tab, Oral, Daily atorvastatin 20 mg tab 20 mg 1 Tab, Oral, Daily DULoxetine DR 30 mg cap 30 mg 1 Cap, Oral, At Bedtime gabapentin 300 mg cap 300 mg 1 Cap, Oral, TID hydrochlorothiazide 25 mg tab 12.5 mg 0.5 Tab, Oral, Daily loratadine 10 mg tab 10 mg 1 Tab, Oral, Daily metFORMIN 500 mg tab 500 mg 1 Tab, Oral, Daily metoprolol succinate XL 25 mg tab 25 mg 1 Tab, Oral, Daily predniSONE 1 mg tab 0.5 mg 0.5 Tab, Oral, EveryOtherDay primidone 50 mg tab 50 mg 1 Tab, Oral, At Bedtime Continuous: (0) PRN: (3) ibuprofen 600 mg tab 600 mg 1 Tab, Oral, Q6H LORazepam 2 mg/mL inj 2 mg 1 mL, IV Push, Q8H ondansetron 4 mg/2 mL inj 4 mg 2 mL, IV Push, Q6H Problem list: Medical At risk for sleep apnea / IMO [id number] / Confirmed, Active Problems (7) At risk for sleep apnea BPH (benign prostatic hyperplasia) COPD (chronic obstructive pulmonary disease) Diabetes GERD (gastroesophageal reflux disease) HTN (hypertension) Hyperlipidemia Objective VS/Measurements Vital Signs/Vital Measures 05/16/2021 9:00 EDT Heart Rate, Apical Not Done: patient taking own medications (Not Done) 05/16/2021 5:51 EDT Blood Pressure Location Arm, right upper Blood Pressure Source Non-Invasive BP Device Blood Pressure Position Supine Systolic Blood Pressure 112 mmHg Diastolic Blood Pressure 64 mmHg Mean Arterial Pressure (MAP)-BMDI 82 Temperature Source Oral Temperature Mode Fahrenheit Temperature, Fahrenheit 98.3 Deg F Clinical Temperature, C 36.8 Deg C Heart Rate Monitored 69 bpm Respiratory Rate 16 Breaths/Min Oxygen Saturation 91 % LOW Oxygen Therapy Mode Room air 05/15/2021 17:21 EDT Systolic Blood Pressure 136 mmHg Diastolic Blood Pressure 78 mmHg Mean Arterial Pressure (MAP)-BMDI 98 Temperature Source Oral Temperature Mode Fahrenheit Temperature, Fahrenheit 98.4 Deg F Clinical Temperature, C 36.9 Deg C Heart Rate Monitored 68 bpm Respiratory Rate 16 Breaths/Min Oxygen Therapy Mode Room air 05/15/2021 11:42 EDT Heart Rate, Apical Not Done: patient takes own meds (Not Done) 05/15/2021 10:55 EDT Systolic Blood Pressure 154 mmHg HI Diastolic Blood Pressure 79 mmHg Temperature Source Oral Temperature Mode Fahrenheit Temperature, Fahrenheit 98.1 Deg F Clinical Temperature, C 36.7 Deg C Heart Rate Monitored 70 bpm 05/15/2021 10:00 EDT Respiratory Rate 16 Breaths/Min Oxygen Therapy Mode Room air , Measurements from flowsheet : Measurements 05/15/2021 13:51 EDT Height Source Stated Height Entry Format [place] Height/Length, EQUATORIAL GUINEAN (ft) 5 ft Height/Length EQUATORIAL GUINEAN 8 Inch CLINICALHEIGHT 172.72 cm [place] Body Weight 67 kg Weight Source Bed scale Weight Entry Format [place] Weight Scottish lb 190 lb CLINICALWEIGHT 86.36 kg Body Surface Area (BSA) 2 m2 Body Mass Index 28.9 kg/m2 HI , Vitals Signs (last 24 hrs) Last Charted Minimum Maximum Temp 98.3 (MAY 16 05:51) 98.3 (MAY 16 05:51) 98.1 (MAY 15 10:55) Mon HR 69 (MAY 16 05:51) 68 (MAY 15 17:21) 70 (MAY 15 10:55) Resp Rate 16 (MAY 16 05:51) 16 (MAY 15 17:21) 16 (MAY 15 17:21) SBP 112 (MAY 16 05:51) 112 (MAY 16 05:51) H 154 (MAY 15 10:55) DBP 64 (MAY 16 05:51) 64 (MAY 16 05:51) 79 (MAY 15 10:55) MAP 82 (MAY 16 05:51) 82 (MAY 16 05:51) 98 (MAY 15 17:21) SpO2 L 91 (MAY 16 05:51) L 91 (MAY 16 05:51) L 91 (MAY 16 05:51) General: Alert and oriented. Eye: Pupils are equal, round and reactive to light. Neurologic: Normal motor function, No focal deficits, Cranial Nerves II-XII are grossly intact. Psychiatric: Appropriate mood & affect. Results Review EEG accompanying body jerks: No change from baseline Continuous EEG: Bilateral temporal slow waves Impression and Plan Discussed findings with patient. 1. Continue video EEG monitoring. 2. Encouraged increase in level of activity. 3. Sleep deprivation: Yes [ ] No [x ] Electronically signed by Christa [facility] Conversion Real Estate Analyst Cerner at 11/01/2022 2:35 PM CDT documented in this encounter Plan of Treatment Not on file documented as of this encounter Visit Diagnoses Not on filedocumented in this encounter
--- OUTSIDE RECORDS SUMMARY | 2025-04-09 09:28 | XMS_ITS | Encounter Summary ---
Author Organization [employer] ([place], [place], [place], [place]) Address [address] [place] [address] Care Team Providers Care Ethylbenzene Oxidizer Name Role Phone Unavailable Primary Care Provider Unavailabl e Encounter Details Date Type Department Care Team (Late st Contact Info) Description 05/17/[address] [facility] [place] [facility] [address] [place] [address] ProviderAbel MD [address] [place] [address] Social History Tobacco Use Types Packs/Day Years Used Date Smoking Tobacco: Never Assessed Sex and Gender Information Value Date Recorded Sex Assigned at Not on file Legal Sex Male 3:24 PM CDT Gender Identity Not on file Sexual Orientation Not on file documented as of this encounter Miscellaneous Notes * Cerner Conversion Note - Abel ProviderMD - 05/17/2021 10:58 AM CDT Stroke/Warfarin Instructions Entered On: 05/17/2021 10:58 EDT Performed On: 05/17/2021 10:58 EDT by Cayla Ariza, RN-PATIENT CARE BEDSIDE NON-EXEMPT Stroke/Warfarin Instructions Stroke/TIA Discharge Ins : N/A Warfarin Discharge Ins : N/A Cayla Ariza RN-PATIENT CARE BEDSIDE NON-EXEMPT - 05/17/2021 10:58 EDT documented in this encounter Plan of Treatment Not on file documented as of this encounter Visit Diagnoses Not on filedocumented in this encounter
--- OUTSIDE RECORDS SUMMARY | 2025-04-09 09:28 | XMS_ITS | Encounter Summary ---
Author Organization [employer] ([place], [place], [place], [place]) Address [address] [place] [address] Care Team Providers Care Petrography Teacher Name Role Phone Unavailable Primary Care Provider Unavailabl e Encounter Details Date Type Department Care Team (Late st Contact Info) Description 05/15/2021 Transcribed Document [facility] [place] [facility] [address] [place] [address] ProviderAbel MD [address] [place] [address] Social History Tobacco Use Types Packs/Day Years Used Date Smoking Tobacco: Never Assessed Sex and Gender Information Value Date Recorded Sex Assigned at Not on file Legal Sex Male 3:24 PM CDT Gender Identity Not on file Sexual Orientation Not on file documented as of this encounter Miscellaneous Notes * Cerner Conversion Note - Abel Tafoya MD - 05/15/2021 10:42 AM CDT Meds to Bed Enrollment Entered On: 05/15/2021 11:27 EDT Performed On: 05/15/2021 10:42 EDT by [place] Zoology Professor Cert Lead Meds to Bed Enrollment Patient Enrollment Decision: : Yes/enroll in meds to bed program [place] Zoology Professor Cert Lead - 05/15/2021 11:27 EDT documented in this encounter Plan of Treatment Not on file documented as of this encounter Visit Diagnoses Not on filedocumented in this encounter
--- OUTSIDE RECORDS SUMMARY | 2025-04-09 09:28 | XMS_ITS | Encounter Summary ---
Author Organization [employer] ([place], [place], [place], [place]) Address [address] [place] [address] Care Team Providers Care Manager Retention Name Role Phone Unavailable Primary Care Provider Unavailabl e Encounter Details Date Type Department Care Team (Late st Contact Info) Description 05/17/2021 Transcribed Document [facility] [place] Family Medicine [address] [place] [address] ProviderAbel MD [address] [place] [address] Social History Tobacco Use Types Packs/Day Years Used Date Smoking Tobacco: Never Assessed Sex and Gender Information Value Date Recorded Sex Assigned at Not on file Legal Sex Male 3:24 PM CDT Gender Identity Not on file Sexual Orientation Not on file documented as of this encounter Miscellaneous Notes * Cerner Conversion Note - Abel Tafoya MD - 05/17/2021 10:59 AM CDT [facility] [place] [address] JOSIANE COBURN JR :1945 Visit Time:05/15/2021 Your Visit Summary Your Care Team Admitting Physician - CONCEPCION DOE MD-NEU Attending Physician - CONCEPCION ODE MD-NEU Primary Care Physician - JOSHUA, ALEXIA PAGE Referring Physician - JOSHUA, SELF REFERRED Your Diagnosis Nonepileptic episode These Are Your Goals No qualifying data available. Discharge Vitals Temperature 36.6 ??C Heart Rate (Monitored) 66 Respiratory Rate 16 Blood Pressure 108/66 What to do next Instructions From Your Care Team Discharge Activity: No driving, Discharge Activity: Other (use Special Instructions) Diet: Discharge Diet: Regular diet as tolerated Follow-Up Appointments Follow Up with Ce Lamb When Within 2 months Comments please contack Dr. Lamb's office in the am to schedule follow up appointment Where: [address] [place] [id number] [facility] (1) Medications What How Much When Instructions Next Dose aspirin (aspirin 81 mg oral capsule) 1 Capsule(s) Oral Every Day atorvastatin (atorvastatin 20 mg oral tablet) 1 Tablet(s) Oral Every Day DULoxetine 30 Milligram(s) Oral At Bedtime gabapentin (gabapentin 300 mg oral capsule) 1 Capsule(s) Oral Three Times A Day hydroCHLOROthiazide (hydroCHLOROthiazide 12.5 mg oral tablet) 1 Tablet(s) Oral Every Day levocetirizine (levocetirizine 5 mg oral tablet) 1 Tablet(s) Oral Every Day metFORMIN (metFORMIN 500 mg oral tablet) 1 Tablet(s) Oral Every Day metoprolol (metoprolol succinate 25 mg oral capsule, extended release) 1 Capsule(s) Oral Every Day predniSONE (predniSONE 1 mg oral tablet) 0.5 Tablet(s) Oral Every Other Day primidone (primidone 50 mg oral tablet) 1 Tablet(s) Oral At Bedtime Take your medications faithfully. Do NOT skip [...] cramping, rapid heartbeat, difficulty sleeping, and nervousness. Please dispose of unused and medications per your retail pharmacy guidance. Allergies Topamax carBAMazepine cephalexin clarithromycin sulfa drugs trimethoprim Immunizations This Visit No Immunizations Found Education Materials Managing Non-Epileptic Seizures, Adult Epileptic seizures are caused by abnormal electrical activity in the brain, but not all seizures are caused by epilepsy. Seizures that are not caused by epilepsy are called non-epileptic seizures, and there are two types: ??? Physiologic non-epileptic seizure. This is also called provoked seizure or organic seizure. This type of seizure stops when the cause goes away or is treated. Possible causes include: ? High fever. ? High or low blood sugar (glucose). ? Brain injury. ? Brain infection. ??? Psychogenic non-epileptic seizure (PNES). This can be caused by a mental disturbance (psychological distress), not by abnormal brain activity or brain injury. This may look similar to other types of seizures. A PNES may be called an event or attack instead of a seizure. Possible causes include: ? Stress. ? Major life events, such as divorce or of a loved one. ? Post-traumatic stress disorder (PTSD). ? Physical or sexual abuse. ? Mental health disorders, including anxiety and depression. General treatment recommendations Physiologic non-epileptic seizure ??? If you have physiologic non-epileptic seizures, your health care provider will treat the cause. These seizures are not likely to return, and they do not need further treatment. PNES ??? Your health care provider may suspect PNES if: ? You have seizures that keep coming back (recurring) and do not respond to seizure medicines. ? You do not show any abnormal brain activity during electrical brain activity testing (electroencephalogram, or EEG). ??? It is very important to understand that PNES is a real illness. It does not mean that the seizure is fake. It just means that the cause is different. PNES can be treated. ??? You may be referred to a mental health specialist (psychiatrist). This is because PNES is a mental health disorder. Mental health treatment may include: ? Talk therapy (cognitive behavioral therapy, or CBT). This is the most effective treatment. Through CBT, you will learn to identify and manage the psychological distress that leads to seizures. ? Stress reduction and relaxation techniques. ? Family therapy. ? Medicines to treat depression or anxiety. ??? In many cases, knowing that seizures are not caused by epilepsy reduces or stops seizures. How to manage lifestyle changes Managing stress Certain types of counseling can be very helpful for managing stress. A mental health professional can assess what other treatments may also help you, such as: ??? Cognitive behavioral therapy. ??? Medicine to treat depression or anxiety. ??? Biofeedback. This uses signals from your body (physiological responses) to help you learn to regulate anxiety. ??? Meditation. ??? Yoga. Consider self-care strategies to lower stress levels, such as: ??? Talking with a trusted friend or family member about your thoughts and feelings. ??? Muscle relaxation and breathing exercises. ??? Trying activities to relieve stress, such as: ? Deep breathing. ? Listening to music. ? Exercising or taking a walk. ? Writing in a journal. ? Creating artwork. Relationships Make sure family members, friends, and co-workers are trained in how to help you if you have a seizure. If you have a seizure, people near you should: ??? Lay you on the ground to prevent a fall. ??? Place a pillow or piece of clothing under your head. ??? Loosen any tight clothing, especially around your neck. ??? Turn you onto your side. This helps keep your airway clear if you vomit. Make sure people do not try to hold you down, keep you still, or put anything in your mouth during a seizure. Follow these instructions at home: Medicines Medicines may be prescribed to treat depression or anxiety that causes non-epileptic seizures. Avoid using alcohol and other substances that may prevent your medicines from working properly (may interact). It is also important to: ??? Talk with your pharmacist or health care provider about all the medicines that you take, their possible side effects, and what medicines are safe to take together. ??? Make it your goal to take part in all treatment decisions (shared decision-making). Ask about possible side effects of medicines that your health care provider recommends, and tell him or her how you feel about having those side effects. It is best if shared decision-making with your health care provider is part of your total treatment plan. ??? Take opun-rgi-ynpwdae and prescription medicines only as told by your health care provider. General instructions ??? Ask your health care provider if it is safe for you to drive. ??? Return to your normal activities as told by your health care provider. Ask your health care provider what activities are safe for you. ??? Keep all follow-up visits as told by your health care providers. This is important. Where to find support You can get support for managing non-epileptic seizures from support groups, either online or in-person. Your health care provider may be able to recommend a support group in your area. Where to find more information ??? Epilepsy Foundation: www.epilepsy.com ??? [place] Epilepsy Society: www.aesnet.org Contact a health care provider if: ??? Your seizures change or become more frequent. ??? You continue to have seizures after treatment. Get help right away if: ??? You injure yourself during a seizure. ??? You have: ? One seizure after another. ? Trouble recovering from a seizure. ? Chest pain or trouble breathing. ? A seizure that lasts longer than 5 minutes. These symptoms may represent a serious problem that is an emergency. Do not wait to see if the symptoms will go away. Get medical help right away. Call your local emergency services (911 in the [place] Do not drive yourself to the hospital. Summary ??? Seizures that are not caused by epilepsy are called non-epileptic seizures. The two types of non-epileptic seizures are physiologic non-epileptic seizure and psychogenic non-epileptic seizure (PNES). ??? PNES is a treatable mental health disorder that is caused by psychological distress. It is very important to work with your mental health provider to find a treatment that works for you. ??? Learning to manage stress and anxiety is an important part of PNES treatment. ??? Make sure family members, friends, and co-workers are trained in how to help you if you have a seizure. If you have a seizure, they should lay you on the ground to prevent a fall, protect your head and neck, and turn you onto your side. This information is not intended to replace advice given to you by your health care provider. Make sure you discuss any questions you have with your health care provider. Document Revised: 07/16/2019 Document Reviewed: 02/28/2018 Elsevier Patient Education ?? 202 [employer] Emergency Awareness and Preventative Care STROKE is an EMERGENCY Every Minute Counts Act FAST and Check for these signs: FACE Does the face look uneven? ARM Does one arm drift down? SPEECH Does their speech sound strange? TIME Call at any sign of stroke Stroke Risk Factors Atrial Fibrillation (irregular heartbeat) Diabetes Family history of stroke Heart Disease Heavy alcohol use High Blood Pressure High Cholesterol Physical inactivity and obesity Smoking Cigarette Smoking The facts are clear, cigarette smoking will shorten your life. Smoking can cause many illnesses along the way. As a healthcare provider, we recommend that you stop smoking. Assistance with quitting is available by contacting 9-490-XJHZ-NOW. This is a free resource providing counseling, support, and referral. Or you may contact your personal physician. PPI Suicide Prevention Lifeline: The National Suicide Prevention Lifeline is a national network of local crisis centers that provides free and confidential emotional support to people in suicidal crisis or emotional distress 24 hours a day, 7 days a week. Don't Wait! Stop a Heart Attack Before it Starts What is a heart attack? A heart attack is damage or to a part of the heart from severely decreased or lack of blood flow to the heart. Over time, arteries can become narrow from the buildup of fat and cholesterol, which is called plaque. The plaque can rupture causing a blood clot to form. When the blood clot forms, the artery can become severely narrowed or completely blocked, causing a heart attack. Heart attack is the leading cause of in the [place]. 85% of muscle damage occurs within the first 2 hours. Delay in the recognition of heart attack symptoms increases the chances of . Know the early symptoms of a heart attack: Nausea Feeling of fullness in chest Jaw Pain Pain that travels down one or both arms Fatigue/being tired Anxiety Back Pain Chest pressure, squeezing, or discomfort Shortness of breath Sweating, or a cold sweat Feeling of impending doom There are unusual signs of a heart attack, too! Women, the elderly, and diabetics may present with atypical symptoms: Fainting/dizziness Weakness Confusion Risk Factors for a Heart Attack Some heart disease risk factors, such as age and family history, cannot be changed. Others, like smoking and lack of exercise, can be changed. Smoking High Cholesterol High Blood Pressure Family History Obesity Age Gender (Males are at higher risk) Lack of Exercise Diabetes Diet Stress Excessive Alcohol Intake If you or someone you know is experiencing the signs and symptoms of a heart attack, DON???T DELAY. Call immediately and seek help. If someone collapses, perform CPR! Do not attempt to drive if you are having symptoms of heart attack. Hands-Only CPR Why Hands-Only CPR? Hands-Only CPR has been shown to be as effective as conventional CPR for cardiac arrests that occur outside of a hospital. Survival depends on immediately receiving CPR from someone nearby. How do you perform Hands-Only CPR? There are two easy steps: Call if you see a teen or adult collapse Push hard and fast in the center of the chest at a beat of 100 beats per minute. Save a life! 4 WAYS TO GET AHEAD OF SEPSIS SEPSIS is a MEDICAL EMERGENCY. Time matters! Infections put you and your family at risk for a life-threatening condition called sepsis. Sepsis is the body's extreme response to an infection. It is life-threatening, and without timely treatment, sepsis can rapidly lead to tissue damage, organ failure, and . Sepsis happens when an infection you already have-in your skin, lungs, urinary tract or somewhere else-triggers a chain reaction throughout your body. 1 [...] sepsis or if you have an infection that is not getting better or is getting worse. To learn more about sepsis and how to prevent infections, visit www.cdc.gov/sepsis. Test Results Laboratory or Other Results This Visit (last charted value for your 05/15/2021 visit) No Laboratory or Other Results This Visit Patient Name:JOSIANE COBURN JR I have received and understand this information and was given the opportunity to ask questions. Patient/Nursing Informatics Analyst Name: Patient/Nursing Informatics Analyst Signature: Relationship to Patient: Clinician/Hospital Nursing Informatics Analyst Signature: Date: documented in this encounter Plan of Treatment Not on file documented as of this encounter Visit Diagnoses Not on filedocumented in this encounter
--- OUTSIDE RECORDS SUMMARY | 2025-04-09 09:28 | XMS_ITS | Encounter Summary ---
Author Organization [employer] ([place], [place], [place], [place]) Address [address] [place] [address] Care Team Providers Care Waterproofer Helper Name Role Phone Unavailable Primary Care Provider Unavailabl e Encounter Details Date Type Department Care Team (Late st Contact Info) Description 05/15/2021 Transcribed Document [facility] [place] [address] [place] [address] ProviderAbel MD [address] [place] [address] Social History Tobacco Use Types Packs/Day Years Used Date Smoking Tobacco: Never Assessed Sex and Gender Information Value Date Recorded Sex Assigned at Not on file Legal Sex Male 3:24 PM CDT Gender Identity Not on file Sexual Orientation Not on file documented as of this encounter Miscellaneous Notes * Cerner Conversion Note - Abel Tafoya MD - 05/15/2021 11:23 AM CDT Education-(VTE) / (DVT) Entered On: 05/15/2021 15:07 EDT Performed On: 05/15/2021 11:23 EDT by Cayla Ariza RN-PATIENT CARE BEDSIDE NON-EXEMPT Teaching/Learning Assessment Barriers To Learning : None evident Readiness to Learn : Cooperative Baseline Knowledge of Topic : Good Readiness to Learn : Explanation Learning Style Preferences Patient : Verbal explanation Cayla Ariza RN-PATIENT CARE BEDSIDE NON-EXEMPT - 05/15/2021 15:06 EDT Education Topics: VTE/DVT Education Topics: VTE/DVT Activity Limitations/Expectations : Verbalizes understanding Signs and symptoms of a VTE : Verbalizes understanding Encourage early ambulation : Verbalizes understanding Cayla Ariza RN-PATIENT CARE BEDSIDE NON-EXEMPT - 05/15/2021 15:06 EDT documented in this encounter Plan of Treatment Not on file documented as of this encounter Visit Diagnoses Not on filedocumented in this encounter
--- OUTSIDE RECORDS SUMMARY | 2025-04-09 09:28 | XMS_ITS | Encounter Summary ---
Author Organization [employer] ([place], [place], [place], [place]) Address [address] [place] [address] Care Team Providers Care Candle Extrusion Machine Operator Name Role Phone Unavailable Primary Care Provider Unavailabl e Encounter Details Date Type Department Care Team (Late st Contact Info) Description 05/16/2021 Transcribed Document [facility] [place] [address] [place] [address] ProviderAbel MD [address] [place] [address] Social History Tobacco Use Types Packs/Day Years Used Date Smoking Tobacco: Never Assessed Sex and Gender Information Value Date Recorded Sex Assigned at Not on file Legal Sex Male 3:24 PM CDT Gender Identity Not on file Sexual Orientation Not on file documented as of this encounter Miscellaneous Notes * Cerner Conversion Note - Historical ProviderMD - 05/16/2021 12:35 PM CDT [facility] Authorization Entered On: 05/16/2021 12:35 EDT Performed On: 05/16/2021 12:35 EDT by Catie Mary Rn-Utilization Review Primary Insurance Authorization Authorization and Policy Numbers : Insurance 1 Health Plan: MEDICARE Policy Number: [id number] Authorization Number: Insurance Primary Name : MEDICARE Authorized Service Begin Date-Primary : 05/15/2021 EDT Historical Authorization Comments-Primary : No Authorization Comments Found Catie Mary Rn-Utilization Review - 05/16/2021 12:35 EDT documented in this encounter Plan of Treatment Not on file documented as of this encounter Visit Diagnoses Not on filedocumented in this encounter
--- OUTSIDE RECORDS SUMMARY | 2025-04-09 09:28 | XMS_ITS | Referral Summary ---
Author Organization [employer] ([place], [place], [place], [place]) Address [address] [place] [address] Care Team Providers Care Teradata Developer Name Role Phone Unavailable Primary Care Provider Unavailabl e Social History Tobacco Use Types Packs/Day Years Used Date Smoking Tobacco: Never Assessed Sex and Gender Information Value Date Recorded Sex Assigned at Not on file Legal Sex Male 3:24 PM CDT Gender Identity Not on file Sexual Orientation Not on file Plan of Treatment Not on file
--- OUTSIDE RECORDS SUMMARY | 2025-04-09 09:28 | XMS_ITS | Encounter Summary ---
Author Organization [employer] ([place], [place], [place], [place]) Address [address] [place] [address] Care Team Providers Care Tongue And Quarter Stitcher Name Role Phone Unavailable Primary Care Provider Unavailabl e Encounter Details Date Type Department Care Team (Late st Contact Info) Description 05/15/2021 Transcribed Document [facility] [place] Family Medicine [address] [place] [address] ProviderAbel MD [address] [place] [address] Social History Tobacco Use Types Packs/Day Years Used Date Smoking Tobacco: Never Assessed Sex and Gender Information Value Date Recorded Sex Assigned at Not on file Legal Sex Male 3:24 PM CDT Gender Identity Not on file Sexual Orientation Not on file documented as of this encounter Miscellaneous Notes * Cerner Conversion Note - Abel Tafoya MD - 05/15/2021 12:31 PM CDT EPILEPS[facility] ADMISSION NOTE DATE OF ADMISSION: 05/15/2021 ADMITTING PHYSICIAN: CONCEPCION MATA MD REASON FOR ADMISSION: Recurrent seizures. HISTORY OF PRESENT ILLNESS: This is a 76-year-old man who has had recurrent fairly stereotypical spells for the past year or so. His has noticed these episodes and thinks they have become more frequent, now occurring daily. He has isolated jerks that vary in distribution. He can have bilateral shoulder jerks. He can have jerks affecting legs and other jerks affecting his mid section. These jerks can repeat within a couple of minutes, but he does not have continuous jerking activity. His thinks he has jerks in his sleep that he is unaware of. ALLERGIES: 1. Carbamazepine. 2. Cephalexin. 3. Clarithromycin. 4. Sulfa drugs. 5. Topiramate. 6. Trimethoprim. PAST MEDICAL HISTORY: 1. Benign prostatic hyperplasia. 2. Hypertension. 3. Diabetes. 4. COPD. 5. GERD. MEDICATIONS AT HOME: 1. Prednisone 0.5 mg every other day. 2. Gabapentin 300 mg 3 times daily. 3. Aspirin 81 mg daily. 4. Metoprolol extended release 25 mg daily. 5. Primidone 50 mg nightly. 6. Atorvastatin 20 mg daily. 7. Levocetirizine 5 mg daily. 8. Metformin 500 mg daily. 9. Hydrochlorothiazide 12.5 mg daily. 10. Duloxetine 30 mg nightly. PAST SURGICAL HISTORY: 1. Cholecystectomy. 2. Hernia repair. 3. Vasectomy. 4. Tonsillectomy. FAMILY HISTORY: 1. Hypertension. 2. Coronary artery disease. 3. Diabetes. SOCIAL HISTORY: He does not smoke or consume alcohol at present. REVIEW OF SYSTEMS: He denies symptoms of depression or anxiety. He has had tremors. He reports difficulties with memory functions and unsteadiness. He denies symptoms referable to the cardiac, pulmonary, gastrointestinal, or genitourinary systems. PHYSICAL EXAMINATION: VITAL SIGNS: On the day of admission, blood pressure 154/79, heart rate 70 per minute and regular, respiratory rate 16 per minute. HEENT: Pupils equal and reactive. NECK: Supple. Normal carotid pulses. LUNGS: Clear. HEART: Regular rate and rhythm. Normal peripheral pulses. NEUROLOGIC EXAMINATION: He is alert and well oriented. Normal language functions. Cranial Nerves: Full range of motion of extraocular muscles. Symmetric facial contractions. Normal tongue movements. His motor examination was normal with normal strength in the upper and lower extremities. Coordination: Normal [id number]. IMPRESSION: Mr. Coburn has had recurrent fairly stereotypical spells for the past year or so. His episodes consist of isolated and at times repetitive jerks with varying distribution. It is unlikely that these represent myoclonic seizures related to generalized epilepsy in view of his age. The possibility of myoclonic seizures related to a neurodegenerative disease needs to be evaluated. The episodes may alternatively be nonepileptic in origin. PLAN: 1. Admit to the epilepsy monitoring unit. 2. Start video EEG monitoring. 3. Seizure precautions. 4. Use lorazepam 2 mg IV for repetitive or prolonged seizures. 5. Continue home medications. /[id number] Concepcion Mata MD TAF/AQ / TAF / MODL Electronically signed by Christa, [facility] Conversion Skip Miner Blasting Cerner at 11/01/2022 2:09 PM CDT documented in this encounter Plan of Treatment Not on file documented as of this encounter Visit Diagnoses Not on filedocumented in this encounter
--- OUTSIDE RECORDS SUMMARY | 2025-04-09 09:28 | XMS_ITS | Clinical Summary ---
Author Organization [employer] ([place], [place], [place], [place]) Address [address] [place] [address] Care Team Providers Care Shrinker Name Role Phone Unavailable Primary Care Provider [...]
--- OUTSIDE RECORDS SUMMARY | 2025-04-09 09:28 | XMS_ITS | Encounter Summary ---
Author Organization [employer] ([place], [place], [place], [place]) Address [address] [place] [address] Care Team Providers Care Subassembly Assembler Name Role Phone Unavailable Primary Care Provider Unavailabl e Encounter Details Date Type Department Care Team (Late st Contact Info) Description 05/17/2021 Transcribed Document [facility] [place] [address] [place] [address] ProviderAbel MD [address] [place] [address] Social History Tobacco Use Types Packs/Day Years Used Date Smoking Tobacco: Never Assessed Sex and Gender Information Value Date Recorded Sex Assigned at Not on file Legal Sex Male 3:24 PM CDT Gender Identity Not on file Sexual Orientation Not on file documented as of this encounter Miscellaneous Notes * Cerner Conversion Note - Abel Tafoya MD - 05/17/2021 9:07 AM CDT DATE OF SERVICE: 05/16/2021 REPORT TYPE: EEG REFERRING PHYSICIAN: Girish Mata MD REPORT TITLE: Video Electroencephalogram Report STUDY DURATION: One day. HISTORY: This is a 76-year-old man being evaluated for seizures. EEG VIDEO MONITORING METHODOLOGY: Time-locked EEG-video monitoring was performed using the 32-channel [employer] monitoring system. The seizure detection computer was used for detection of ictal discharges (subclinical and clinical), interictal discharges, and to record ictal events that were documented by depression of the event button in the patient's room. Analyses of the monitoring data were performed using the following techniques: Review of the relevant EEG-video data. Review of events detected by the computer system in detail. Review of clinical seizures, with both detailed review of EEG and video and playback using multiple montages. A variety of referential and bipolar montages were used. CLINICAL AND EEG ANALYSIS: There was no event reported during the period of monitoring. However, the patient had intermittent jerks throughout the duration of the recording. Concomitant EEG uniformly showed no change from baseline background activity. TIME SAMPLES: The recording was reviewed. During wakefulness, 8 to 9 Hz activity was seen posteriorly. Lower amplitude fast activity in the beta range is seen with a wider distribution. Higher amplitude 2 to 3 Hz delta waves are noted at V9-T3-Oc4-F3 and L7-J8-Oi1-F4, overall more prominent in the latter. During sleep, well-formed sleep spindles were seen in both hemispheres. SPIKE DETECTION: The spike detection program was activated during the period of monitoring. Rare sharply contoured slow waves are noted at F8-T8. EEG DIAGNOSIS: This is an abnormal video EEG study because of: 1. Focal slow wave activity noted at C8-L2-Qf8-F3 and more prominently at F1-X9-Ul3-F4. 2. Intermittent slowing of the background. 3. Rare sharply contoured slow waves noted at F8-T8. CLINICAL INTERPRETATION: There was no clinical event reported during the period of monitoring. However, the patient was noted to have intermittent jerks throughout the duration of the recording in wakefulness. Concomitant EEG uniformly showed no change from baseline background activity, indicating that the jerks were nonepileptic in origin. Continuous EEG recordings showed no electrographic ictal discharge. EEG recordings showed slow wave activity in the frontotemporal electrodes in both hemispheres, more commonly on the right, indicative of focal cerebral dysfunction in the frontotemporal regions, more prominent on the right. Intermittent slowing of the background was noted suggestive of mild diffuse cerebral dysfunction. There were rare sharply contoured slow waves seen in the right temporal electrodes, raising the possibility of potential epileptogenicity in the right anterior temporal region. /[id number] MD HAYDEE Senior/ALANIS / TAF / MODL /[id number] documented in this encounter Plan of Treatment Not on file documented as of this encounter Visit Diagnoses Not on filedocumented in this encounter
--- OUTSIDE RECORDS SUMMARY | 2025-04-09 09:28 | XMS_ITS | Encounter Summary ---
Author Organization [employer] ([place], [place], [place], [place]) Address [address] [place] [address] Care Team Providers Care Chart Snatcher Name Role Phone Unavailable Primary Care Provider Unavailabl e Encounter Details Date Type Department Care Team (Late st Contact Info) Description 05/15/2021 Transcribed Document [facility] [place] [address] [place] [address] ProviderAbel MD [address] [place] [address] Social History Tobacco Use Types Packs/Day Years Used Date Smoking Tobacco: Never Assessed Sex and Gender Information Value Date Recorded Sex Assigned at Not on file Legal Sex Male 3:24 PM CDT Gender Identity Not on file Sexual Orientation Not on file documented as of this encounter Miscellaneous Notes * Cerner Conversion Note - Abel Tafoya MD - 05/15/2021 1:51 PM CDT Admission History, Adult Entered On: 05/15/2021 14:05 EDT Performed On: 05/15/2021 13:51 EDT by Cayla Ariza RN-PATIENT CARE BEDSIDE NON-EXEMPT Advance Directive Patient has Advance Directive *Q : No, patient refuses Advance Directive information Cayla Ariza RN-PATIENT CARE BEDSIDE NON-EXEMPT - 05/15/2021 13:51 EDT Anesthesia/Transfusion History Family History of Anesthesia Reaction : No prior transfusion(s) Transfusion History : Prior anesthesia without reaction Family History of Anesthesia Reaction : None Cayla Ariza RN-PATIENT CARE BEDSIDE NON-EXEMPT - 05/15/2021 13:51 EDT Functional Assessment Living Situation : Home Patient Lives With : Dependent Child/Children, Spouse Persons Assisting Patient at Home : Spouse Current Daily Living Assistance : None Mobility Assistance Prior to Admission : Independent Current Home Treatments : Blood glucose monitoring Cayla Ariza RN-PATIENT CARE BEDSIDE NON-EXEMPT - 05/15/2021 13:51 EDT General Info Arrived From : Home Mode of Arrival on Unit : Ambulatory Legal Guardian : Spouse Want Family/Rep/Phys Notified of Admit : No Emergency Contact #1 : Camila Coburn Emergency Contact #1 Emergency Contact #1 Relationship : Emergency Contact #2 : n Emergency Contact #2 Phone Number : n Emergency Contact #2 Relationship : n Primary Language : Omani Communication Barrier : None Pig Farmer Needed : No Cayla Ariza RN-PATIENT CARE BEDSIDE NON-EXEMPT - 05/15/2021 13:51 EDT Fall Risk Scales ABCs Fall Injury Risk Identification : None Injury Moderate to High Risk Interventions : Video observation in place JENKINS Hx Falls Immediate/Within 3 Months : No Jenkins Secondary Diagnosis : Yes JENKINS Use of Ambulatory Aid : None JENKINS IV Therapy or IV Access : Yes Jenkins Gait/Transferring : Normal, bedrest, immobile Jenkins Mental Status : Oriented to own ability Jenkins Fall Risk Score : 35 JENKINS Fall Scale Risk Level : 25-45 Medium Risk [place] Fall Interventions : Adequate lighting, Assistive devices within reach, Bed in low position, Call device within reach, Hourly comfort/safety rounds, Non-slip footwear, Personal items within reach, Reinforced to call for assistance before getting out of bed, Room free of clutter/spills, Upper side-rails up, Wheels locked, Wires/Cords secured Barriers to Learning : None evident Fall Risk Scale Calc Temp : 0 Cayla Ariza RN-PATIENT CARE BEDSIDE NON-EXEMPT - 05/15/2021 13:51 EDT Health Histories Smoking Status : Never (less than 100 in lifetime; none in last 30 days) Smokeless Tobacco Status : Never Cayla Ariza RN-PATIENT CARE BEDSIDE NON-EXEMPT - 05/15/2021 13:51 EDT Social History (As Of: 05/15/2021 14:05:29 EDT) Alcohol: Alcohol Use History No. Use in Last 12 Months: No. (Last Updated: 05/15/2021 13:57:19 EDT by Cayla Ariza RN-PATIENT CARE BEDSIDE NON-EXEMPT) Substance Abuse: Drug Use Hx: No. Use in Last 12 Months: No. (Last Updated: 05/15/2021 13:57:28 EDT by Cayla Ariza RN-PATIENT CARE BEDSIDE NON-EXEMPT) Height and Weight, Clinical Dosing Height Source : Stated Height Entry Format : [place] Height, Feet : 5 ft(Converted to: 152 cm, 60 Inch) Height, Inches : 8 Inch(Converted to: 0 ft 8 Inch, 20.32 cm) Clinical Height : 172.72 cm Weight Source : Bed scale Weight Entry Format : [place] Clinical Dosing Weight : 86.36 kg Weight, Pounds : 190 lb Body Surface Area (BSA) : 2 m2 Body Mass Index : 28.9 kg/m2 (HI) [place] Body Weight : 67 kg Cayla Ariza RN-PATIENT CARE BEDSIDE NON-EXEMPT - 05/15/2021 13:51 EDT Infectious Disease History Does patient have symptoms of COVID-19? : No Has the Patient Been Tested for COVID-19 in the last 14 days? : No, Patient stated Does the Patient state known exposure to a COVID-19 positive case in the last 14 days? : No Patient Vaccinated for COVID-19 : Fully vaccinated Cayla Ariza RN-PATIENT CARE BEDSIDE NON-EXEMPT - 05/15/2021 13:51 EDT Infectious Disease Risk Screening Grid Cough < 2 wks of unknown origin : NO Cough > 2 weeks : NO Blood in Sputum : NO Fever or self-reported Fever : NO Rash of unknown origin : NO Headache : NO Stiff neck : NO Night Sweats : NO Unexplained Weight Loss : NO Diarrhea (3 episode per day) : NO Cayla Ariza RN-PATIENT CARE BEDSIDE NON-EXEMPT - 05/15/2021 13:51 EDT Physical contact outside [place] in the last 30 days : No Hospitalized in Foreign Country : No Infectious Disease History : Chicken pox/Shingles INF Disease TB Screening Calc : 0 INF Disease Recent Travel Calc : 0 Cayla Ariza RN-PATIENT CARE BEDSIDE NON-EXEMPT - 05/15/2021 13:51 EDT Influenza Vaccine Asmt, Adult Previous Vaccines from Immunization Schedule : No qualifying data available. Influenza Immunization, Current Season : Yes Cayla Ariza RN-PATIENT CARE BEDSIDE NON-EXEMPT - 05/15/2021 13:51 EDT Pneumococcal Vaccine Previous Vaccines from Immunization Schedule : No qualifying data available. Pneumonia Immunization Received : Yes Cayla Ariza RN-PATIENT CARE BEDSIDE NON-EXEMPT - 05/15/2021 13:51 EDT Order Details Isolation Precautions Order Detail : Standard Precautions Order Detail : N/A IV Order Detail : 1 Lift/Transfer : Independent Room Service : Appropriate Patient Needs Meds Crushed/Liquid : No Cayla Ariza RN-PATIENT CARE BEDSIDE NON-EXEMPT - 05/15/2021 13:51 EDT Nutrition History Eating Poorly Due to Decreased Appetite : No Unplanned Weight Loss in Past 3-6 Months : No Malnutrition Screening Tool Total(mal) : 0 Malnutrition Screening Tool Risk Level : Patient not at risk Cayla Ariza RN-PATIENT CARE [facility] NON-EXEMPT - 05/15/2021 13:51 EDT [place] Suicide Severity Rating Scale (C-SSRS) CSSRS Past Month Wish to be : No CSSRS Past Month Suicidal Thoughts : No CSSRS Lifetime Suicide Behavior : No Suicide Severity Rating Score : 0 Suicide Severity Rating : No Additional Care Required at this time Cayla Ariza RN-PATIENT CARE BEDSIDE NON-EXEMPT - 05/15/2021 13:51 EDT Psychosocial History Currently in Unsafe Situation : No Cayla Ariza RN-PATIENT CARE [facility] NON-EXEMPT - 05/15/2021 13:51 EDT Sleep Apnea Risk Assmt Hx of Obstructive Sleep Apnea Diagnosis : No Snore Loudly : No Tired, Fatigued, or Sleepy During Day : No Observed Stopping Breathing During Sleep : No Have/Are Being Treated for Hypertension : No BMI Greater Than 35 kg/m2 : No Age over 50 Years Old : Yes Neck Circumference Greater Than 40 cm : No Gender Male : Yes STOP-BANG Sleep Apnea Risk Level Score : 2 Cayla Ariza RN-PATIENT CARE BEDSIDE NON-EXEMPT - 05/15/2021 13:51 EDT Valuables and Belongings Valuables and Belongings : Clothing, Jewelry, Personal devices, Personal items, Medications Clothing : Common streetwear Clothing Disposition : Bedside, With patient Personal Device Disposition : With patient Jewelry : Ring-plain band, Watch Jewelry Disposition : With patient Personal Devices : Dentures, upper, Dentures, lower, Glasses Personal Items : Ghosh, Cell phone, Credit cards, Wallet Personal Items Disposition : With patient Medication Disposition : Bedside, With patient Medication Brought With Patient : Yes Cayla Ariza, RN-PATIENT CARE BEDSIDE NON-EXEMPT - 05/15/2021 13:51 EDT Electronically signed by Alta Goodwin Conversion Skoog Patching Machine Operator Cerner at 11/01/2022 2:26 PM CDT documented in this encounter Plan of Treatment Not on file documented as of this encounter Visit Diagnoses Not on filedocumented in this encounter
--- OUTSIDE RECORDS SUMMARY | 2025-04-09 09:28 | XMS_ITS | Encounter Summary ---
Author Organization [employer] ([place], [place], [place], [place]) Address [address] [place] [address] Care Team Providers Care Piping Designer Name Role Phone Unavailable Primary Care Provider Unavailabl e Encounter Details Date Type Department Care Team (Late st Contact Info) Description 05/16/2021 Transcribed Document [facility] [place] [address] [place] [address] ProviderAbel MD [address] [place] [address] Social History Tobacco Use Types Packs/Day Years Used Date Smoking Tobacco: Never Assessed Sex and Gender Information Value Date Recorded Sex Assigned at Not on file Legal Sex Male 3:24 PM CDT Gender Identity Not on file Sexual Orientation Not on file documented as of this encounter Miscellaneous Notes * Cerner Conversion Note - Abel Tafoya MD - 05/16/2021 9:49 AM CDT DATE OF SERVICE: 05/15/2021 REPORT TYPE: EEG REFERRING PHYSICIAN: Girish Mata MD REPORT TITLE: Video electroencephalogram report STUDY DURATION: One day. HISTORY: This is a 76-year-old man being evaluated for recurrent seizures. EEG VIDEO MONITORING METHODOLOGY: Time-locked EEG-video monitoring was performed using the 32-channel [employer] monitoring system. The seizure detection computer was [...] montages were used. CLINICAL AND EEG ANALYSIS: The patient had intermittent jerks in his limbs throughout the duration of monitoring. The event button was pushed on 2 occasions. EVENT ONE: On 05/15/2021 at 11:11:00, the patient is lying in bed on his back. He has intermittent jerks noted in the extremities. The event button is pushed by the electroneurodiagnostic technologist after the patient has body jerks. Concomitant EEG showed no change from baseline background activity. EVENT TWO: On 05/15/2021 at 13:45:00, the patient is lying on his back. He has a slight body jerk at 13:45:10 and pushes the event button at 13:45:13. Concomitant EEG showed no change from baseline background activity. TIME SAMPLES: The recording was reviewed. During wakefulness, the background showed predominantly 9 Hz activity posteriorly intermixed with lower amplitude fast activity in the beta range with a wide distribution. 4 to 5 Hz theta waves and less frequent 2 to 3 Hz delta waves are seen independently at F7-T7 and F8-T8. During sleep, well-formed sleep spindles were seen in both hemispheres. SPIKE DETECTION: The spike detection program was activated during the period of monitoring and revealed no definitive epileptiform abnormality. EEG DIAGNOSES: This is an abnormal video EEG study because of: 1. Focal slow wave activity noted independently at F7-T7 and F8-T8. 2. EEG accompanying 2 reported events showed no change from baseline background activity. CLINICAL INTERPRETATION: There were 2 events reported during the period of monitoring. On both occasions, the reported events consisted of body jerks. Concomitant EEG on both occasions showed no change from baseline background activity. There were additional jerks noted during the period of monitoring with no concomitant ictal EEG change. These events were therefore nonepileptic in origin. Continuous EEG recordings showed no definitive epileptiform abnormality, and therefore no evidence to support the diagnosis of epilepsy. EEG recordings showed slow wave activity in the anterior temporal electrodes in both hemispheres, consistent with focal cerebral dysfunction in the anterior temporal regions. /[id number] MD HAYDEE Senior/ALANIS / HAYDEE / MODL /[id number] Electronically signed by Christa [facility] Conversion School Office Assistant Cerner at 11/01/2022 2:12 PM CDT documented in this encounter Plan of Treatment Not on file documented as of this encounter Visit Diagnoses Not on filedocumented in this encounter
--- OUTSIDE RECORDS SUMMARY | 2025-04-09 09:28 | XMS_ITS | Encounter Summary ---
Author Organization [employer] ([place], [place], [place], [place]) Address [address] [place] [address] Care Team Providers Care Candy Starch Mold Printer Name Role Phone Unavailable Primary Care Provider Unavailabl e Encounter Details Date Type Department Care Team (Late st Contact Info) Description 05/17/2021 Transcribed Document [facility] [place] [address] [place] [address] ProviderAbel MD [address] [place] [address] Social History Tobacco Use Types Packs/Day Years Used Date Smoking Tobacco: Never Assessed Sex and Gender Information Value Date Recorded Sex Assigned at Not on file Legal Sex Male 3:24 PM CDT Gender Identity Not on file Sexual Orientation Not on file documented as of this encounter Miscellaneous Notes * Cerner Conversion Note - Abel Tafoya MD - 05/17/2021 10:58 AM CDT DATE OF SERVICE: 05/17/2021 REPORT TYPE: EEG REFERRING PHYSICIAN: Girish Mata MD REPORT TITLE: Video Electroencephalogram Report STUDY DURATION: 4 hours 30 minutes. HISTORY: This is a 76-year-old man being evaluated for recurrent seizures. EEG VIDEO MONITORING METHODOLOGY: Time-locked EEG-video monitoring was performed using the 32-channel [employer] monitoring system. The seizure detection computer was [...] event reported during the period of monitoring. TIME SAMPLES: The recording was reviewed. During wakefulness, 8 to 9 Hz activity is seen posteriorly intermixed with 5 to 6 Hz theta waves and lower amplitude faster activity in the beta range with a wider distribution. Higher amplitude 2 to 3 Hz delta waves are seen at F8-T8 and F7-T7. During sleep, well-formed sleep spindles were seen in both hemispheres. SPIKE DETECTION: The spike detection program was activated during the period of monitoring and revealed no definitive epileptiform abnormality. EEG DIAGNOSES: This is an abnormal video EEG study because of: 1. Focal slow wave activity seen at F7-T7 and F8-T8. 2. Intermittent slowing of the background. CLINICAL INTERPRETATION: The patient had no clinical event during the period of monitoring. Continuous EEG recordings showed no definitive epileptiform abnormality. EEG recordings showed slow wave activity in the anterior temporal electrodes consistent with focal cerebral dysfunction in the anterior temporal regions. Intermittent slowing of the background was noted suggestive of mild diffuse cerebral dysfunction. /[id number] Girish Mata MD TAF/AQ / TAF / MODL /[id number] documented in this encounter Plan of Treatment Not on file documented as of this encounter Visit Diagnoses Not on filedocumented in this encounter
--- OUTSIDE RECORDS SUMMARY | 2025-04-09 09:28 | XMS_ITS | Encounter Summary ---
Author Organization [employer] ([place], [place], [place], [place]) Address [address] [place] [address] Care Team Providers Care Engine Boss Name Role Phone Unavailable Primary Care Provider Unavailabl e Encounter Details Date Type Department Care Team (Late st Contact Info) Description 05/17/2021 Transcribed Document [facility] [place] Family Medicine [address] [place] [address] ProviderAbel MD [address] [place] [address] Social History Tobacco Use Types [...] Tafoya MD - 05/17/2021 10:58 AM CDT Patient Education Materials Follows:[facility] Managing Non-Epileptic Seizures, Adult Epileptic seizures are [...] of your total treatment plan. ??? Take [id number] and prescription medicines only as told by [...] more information ??? Epilepsy Foundation: www.epilepsy.com ??? [place] [employer]: www.aesnet.org Contact a health care [...] provider. Document Revised: 07/16/2019 Document Reviewed: 02/28/2018 [employer] Patient Education ? 2020 [employer]. Electronically signed by Alta Goodwin Conversion Printing Press Machine Operator Cerner at 11/01/2022 2:35 PM CDT documented in this encounter Plan of Treatment Not on file documented as of this encounter Visit Diagnoses Not on filedocumented in this encounter
--- NOTE | 2025-04-09 09:34 | XR_ITS ---
FINAL REPORT CLINICAL HISTORY: pain with movement FINDINGS: LEFT ELBOW Two views were obtained. There is no fracture or dislocation. The joint spaces appear normal. No soft tissue abnormality is identified. IMPRESSION: No acute process. Reviewed, Interpreted and Dictated by Tangela Dunbar MD Transcribed by Jackie Mckeon Authenticated and [facility]
--- NOTE | 2025-04-09 09:34 | XR_ITS ---
FINAL REPORT CLINICAL HISTORY: pain with movement FINDINGS: LEFT HUMERUS Two views were obtained. There is no fracture or dislocation. The joint spaces appear normal. No soft tissue abnormality is identified. IMPRESSION: No acute process. Reviewed, Interpreted and Dictated by Tangela Dunbar MD Transcribed by Jackie Mckeon Authenticated and [facility]
--- NOTE | 2025-04-09 09:34 | XR_ITS ---
FINAL REPORT CLINICAL HISTORY: pain with movement FINDINGS: LEFT SHOULDER Three views were obtained. There is no fracture or dislocation. 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 No soft tissue abnormality is identified. IMPRESSION: No acute process. Reviewed, Interpreted and Dictated by Tangela Dunbar MD Transcribed by Jackie Mckeon Authenticated and [facility]
--- NOTE | 2025-04-09 09:45 | ED_ITS ---
Discharge Plan Disposition Patient Disposition: Home, Self-Care Condition: Good Prescriptions Prescriptions: No Action montelukast 10 mg tablet 10 mg PO QPM 90 Days Qty: 90 2RF levocetirizine [Xyzal] 5 mg tablet 5 mg PO DAILY PRN (Reason: allergy symptoms) Qty: 30 4RF fluticasone propionate [Flonase Allergy Relief] 50 mcg/actuation spray,suspension 1 spray intranasal DAILY Qty: 16 2RF Rx Instructions: administer into each nostril diazepam 2 mg tablet 2 mg PO HS PRN (Reason: muscle spasm) Qty: 30 1RF triamcinolone acetonide 0.1 % cream 1 applic topical DAILY Qty: 80 1RF fluticasone propion-salmeterol [Advair Diskus] 250-50 mcg/dose blister with device 1 inh inhalation BID 90 Days Qty: 180 3RF albuterol sulfate 90 mcg/actuation HFA aerosol inhaler 2 inh inhalation Q6H PRN (Reason: shortness of breath or wheezing) Qty: 8.5 3RF metoprolol succinate 25 mg tablet extended release 24 hr See Rx Instructions .ROUTE .COMPLEX Qty: 100 3RF Dose Instruction: TAKE 1 TABLET BY MOUTH ONCE DAILY Rx Instructions: TAKE 1 TABLET BY MOUTH ONCE DAILY primidone 50 mg tablet See Rx Instructions .ROUTE .COMPLEX Qty: 90 3RF Dose Instruction: TAKE 1 TABLET BY MOUTH EVERY NIGHT AT BEDTIME Rx Instructions: TAKE 1 TABLET BY MOUTH EVERY NIGHT AT BEDTIME tramadol 50 mg tablet 50 mg PO TID PRN (Reason: pain) Qty: 60 1RF atorvastatin 20 mg tablet See Rx Instructions .ROUTE .COMPLEX Qty: 90 0RF Dose Instruction: TAKE 1 TABLET BY MOUTH EVERY NIGHT AT BEDTIME Rx Instructions: TAKE 1 TABLET BY MOUTH EVERY NIGHT AT BEDTIME metformin 500 mg tablet extended release 24 hr See Rx Instructions .ROUTE .COMPLEX Qty: 100 2RF Dose Instruction: TAKE 1 TABLET BY MOUTH ONCE DAILY FOR DIABETES Rx Instructions: TAKE 1 TABLET BY MOUTH ONCE DAILY FOR DIABETES gabapentin 300 mg capsule See Rx Instructions .ROUTE .COMPLEX Qty: 60 3RF Rx Instructions: Take 1 Capsule by mouth twice daily for pain. omeprazole 40 mg capsule,delayed release(DR/EC) See Rx Instructions .ROUTE .COMPLEX Qty: 90 3RF Dose Instruction: Take 1 Capsule by mouth once daily. Rx Instructions: Take 1 Capsule by mouth once daily. hydrochlorothiazide 12.5 mg tablet See Rx Instructions .ROUTE .COMPLEX Qty: 90 3RF Dose Instruction: TAKE 1 TABLET BY MOUTH ONCE DAILY Rx Instructions: TAKE 1 TABLET BY MOUTH ONCE DAILY meloxicam 15 mg tablet See Rx Instructions .ROUTE .COMPLEX Qty: 90 3RF Dose Instruction: TAKE 1 TABLET BY MOUTH ONCE DAILY Rx Instructions: TAKE 1 TABLET BY MOUTH ONCE DAILY aspirin 81 MG tablet,delayed release (DR/EC) 81 mg PO HS Referrals Follow up/Referrals: Brooke Nicole MD [Primary Care Provider, Medical] - See instructions Lan Paz DO [Staff Physician, Orthopedics] - See instructions Activity Restrictions/Add. Instructions Additional Instructions/Restrictions: You were seen in the emergency department for shoulder pain. We identified no fractures on your x-ray. Please follow-up with orthopedics outpatient. For the next week please allow your arm to remain in the sling. Please remove the sling several times a day to do range of motion exercises on the elbow to prevent stiffness. You do not need to wear the sling while sleeping. Please take Tylenol and Motrin for pain. If symptoms worsen, or new symptoms develop, please return to the emergency department. Clinical Impressions Clinical Impression: Acute shoulder pain Instructions Patient Instructions: DI for Joint Pain Print Language Print Language: Honduran Discharge ED Provider: Jaguar Salas Adult HPI General Chief complaint: Extremity Injury, Upper Stated complaint: L Shoulder Pop - No Accident Time Seen by Provider: 04/09/25 09:26 Mode of Arrival: Ambulatory Source of Information: Patient Description of Symptoms (Recalled from ER Triage Doc. by RN): Patient reports sitting on the floor playing with his dog when he went to get up and slipped and fell on his left shoulder. States he heard a pop and since then it began hurting and hasn't stopped hurting since. History of Present Illness HPI narrative: This is a 80-year-old male with past medical history of hypertension who presents to the emergency department left shoulder pain. The patient reports that 2 to 3 days ago he was rising from the ground using his left arm to press up, he felt a pop and immediate pain in the left shoulder and he fell onto the left side. He did not strike his head or lose consciousness. Since then he has significant discomfort with any movement of the left upper extremity. He is moderately comfortable if his arm is held in a 9 degree angle against the body with that weight of the hand supported. He has normal pulses in the affected arm, is able to move the wrist with minimal pain, has significant pain with movement of the bicep or tricep or abduction of the arm away from the body though he is able to complete these movements. Related Data Home Medications ?Medication ?Instructions ?Recorded ?Confirmed aspirin 81 mg tablet,delayed 81 mg PO HS heart 8 03/12/25 release Previous Rx's ?Medication ?Instructions ?Recorded metoprolol succinate 25 mg See Rx Instructions .Route 05/04/24 tablet,extended release 24 hr .COMPLEX #100 tabs primidone 50 mg tablet See Rx Instructions .Route 0 09/07/24 .COMPLEX #90 tabs diazepam 2 mg tablet 2 mg PO HS PRN muscle spasm #30 10/02/24 tabs triamcinolone acetonide 0.1 % 1 applic topical DAILY # 80 grams 10/02/24 topical cream tramadol 50 mg tablet 50 mg PO TID PRN pain #60 ta bs 11/08/24 albuterol sulfate 90 mcg/actuation 2 inh inhalation Q6 H PRN shortness 11/12/24 aerosol inhaler of breath or wheezing #8.5 g fiorella fluticasone propionate 50 1 spray intranasal DAILY #16 grams 12/20/24 mcg/actuation nasal spray,suspension (Flonase Allergy Relief) levocetirizine 5 mg tablet (Xyzal) 5 mg PO DAILY PRN a llergy symptoms 12/20/24 #30 tabs montelukast 10 mg tablet 10 mg PO QPM 90 days #90 tab s 12/20/24 atorvastatin 20 mg tablet See Rx Instructions .Route 0 01/16/25 .COMPLEX #90 tabs metformin 500 mg tablet,extended See Rx Instructions . Route 02/28/25 release 24 hr .COMPLEX #100 tabs gabapentin 300 mg capsule See Rx Instructions .Route 0 03/05/25 .COMPLEX . #60 caps omeprazole 40 mg capsule,delayed See Rx Instructions . Route 03/11/25 release .COMPLEX #90 caps fluticasone 250 mcg-salmeterol 50 1 inh inhalation BID 90 days #180 03/12/25 mcg/dose blistr powdr for ea inhalation (Advair Diskus) hydrochlorothiazide 12.5 mg tablet See Rx Instructions .Route 03/20/25 .COMPLEX #90 tabs meloxicam 15 mg tablet See Rx Instructions .Route 0 03/20/25 .COMPLEX #90 tabs Allergies Allergy/AdvReac Type Severity Reaction Status Date / Time cephalexin (CEPHALEXIN) Allergy Unknown NA-DIZZINES Verified 03/12/25 13:41 S trimethoprim (From BACTRIM) Allergy Unknown NA-DIZZINES Verified 03/12/25 13:41 S topiramate (From Topamax) AdvReac Severe Chest Pain Verified 03/12/25 13:41 carbamazepine (From Tegretol) AdvReac Intermediate Flushing Verified 03/12/25 13:41 clarithromycin (From Biaxin) AdvReac Intermediate Gastrointestinal Verified 03/12/25 13:41 Upset sulfamethoxazole (From AdvReac Unknown NA-DIZZINES Verified 03/12/25 13:41 BACTRIM) S [facility] Disclaimer: The information contained in this section may have been updated after the patient was seen, as this information can be updated by other users. 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 Sprain of medial collateral ligament of right knee Restrictive lung disease Abnormal PFT Peripheral eosinophilia Asthma-COPD overlap syndrome COPD (chronic obstructive pulmonary disease) Multiple pulmonary nodules Pulmonary emphysema Allergic rhinitis, unspecified Moderate persistent asthma Stopped smoking with greater than 30 pack year history Chronic cough Dyspnea on exertion Arthropathy of hand Diclofenac topical Chronic asthmatic bronchitis Shortness of breath Emphysema of lung Gout Skin problem HLD (hyperlipidemia) HTN (hypertension) Coronary artery disease Former smoker Abnormal EKG Type 2 diabetes mellitus COPD exacerbation Surgical History Hx of cataract surgery History of tonsillectomy and adenoidectomy History of hernia repair History of cholecystectomy Family History Other Cancer Diabetes Hyperlipidemia Hypertension Social History Smoking Status: Former smoker tobacco type: cigarettes smoking status stop date: 2003 second hand exposure: No alcohol intake: never substance use type: denies use current occupational status: retired Travel in the last 8 weeks?: None household members: family housing: house current occupational exposures/hazards: No caffeine: Yes Have you lived/traveled outside US in past 30 days?: No Contact w/someone who lives/traveled outside US past 30 days?: No Exposure to someone with infectious disease in past 14 days?: No Do you have a fever (greater than 100.4 F or 38 C)?: No Have you tested positive for COVID-19?: No Exposed to someone with COVID-19 in past 14 days?: No Do you have a sore throat?: No Do you have a cough?: No Do you have any weakness?: No Do you have any diarrhea?: No Are you experiencing any unusual bleeding?: No Do you have any muscle aches/pain?: No Do you have any abdominal pain?: No Are you experiencing loss of taste or smell?: No Other Medical History Have you received the Flu Vaccine for this season: No Have you received the Pneumonia Vaccine: Yes ROS Obtained: Yes All systems reviewed & no additional complaints except as documented Physical Exam General General appearance: alert and in no apparent distress Head Head exam: atraumatic and normocephalic Eye Eye exam: Present normal appearance, PERRL and EOMI ENT ENT exam: Present normal exam and normal external ear exam Neck Neck exam: Present normal inspection, full ROM and trachea midline Chest Chest inspection: Present normal inspection and symmetric chest wall rise; Absent tenderness Respiratory Respiratory exam: Absent respiratory distress Cardiovascular Cardiovascular exam: Present regular rate, normal rhythm and other (appears warm and well perfused) Abdominal Exam Abdominal exam: Absent distention or tenderness exam: Absent deferred Extremities Exam Extremities exam: Present normal inspection and full ROM Neurological Exam Neurological exam: Present alert and oriented X3 Psychiatric Psychiatric exam: Present normal affect Skin Skin exam: Present warm and dry Medical Decision Making Medical Records Medical records reviewed: Yes I reviewed the patient's medical records. Screening: Per USPSTF and CDC recommendations, given the prevalence of disease in our region, it is our hospital?s policy to screen for HIV and viral Hepatitis for all patients aged 18 and over and those with ongoing risk factors. Neel Inquiry Pt receiving controlled substance: No Neel was queried for this patient: No Vital Signs: 04/09/25 09:21 04/09/25 09:23 04/09/25 09:31 Temperature 98.5 F Temperature Source Oral Pulse Rate 63 64 Pulse Rate [Radial] 64 Respiratory Rate 18 Blood Pressure 132/67 121/65 Blood Pressure [Right Arm] 132/67 Blood Pressure Mean [Right Arm] 88 Blood Pressure Source Blood Pressure Source [Right Arm] Automatic Cuff Blood Pressure Position Blood Pressure Position [Right Arm] Sitting 02 Sat by Pulse Oximetry 93 L 92 L 95 Oxygen Delivery Method Room Air 04/09/25 10:30 04/09/25 11:00 04/09/25 11:06 Temperature 98.2 F Temperature Source Oral Pulse Rate 62 57 L 85 Pulse Rate [Radial] Respiratory Rate 16 Blood Pressure 135/76 135/75 130/85 Blood Pressure [Right Arm] Blood Pressure Mean [Right Arm] Blood Pressure Source Automatic Cuff Blood Pressure Source [Right Arm] Blood Pressure Position Supine Blood Pressure Position [Right Arm] 02 Sat by Pulse Oximetry 93 L 92 L Oxygen Delivery Method Room Air Lab Data Lab results reviewed: Yes I reviewed the patient's lab results. Orders (Tests/Meds): ED MEDICATIONS Discontinued Medications Generic Name Dose Route Start Last Admin Trade Name Freq PRN Reason Stop Dose Admin Acetaminophen 1,000 mg 04/09/25 09:34 04/09/25 09:59 Acetaminophen 500mg Tab PO 04/09/25 09:35 1,000 mg ONCE ONE Administration ORDERS Category Date Time Status Elbow XR left 2 views [XR elbow LT 2V] Stat Exams 04/09/25 09:34 Completed Humerus XR left [XR humerus LT] Stat Exams 04/09/25 09:34 Completed Shoulder XR left minimum 2 views [XR shoulder LT min 2V Exams 04/09/25 09:34 Completed ] Stat HIV Combo Stat Lab 04/09/25 09:30 Ordered Hepatitis C Ab Qual. W/ RFX Stat Lab 04/09/25 09:30 Ordered Medical Decision Narrative: MDM In summary, this 80-year-old male presents to the emergency department today with left shoulder pain. Initial evaluation the patient hemodynamically stable and mildly uncomfortable. Differential diagnosis includes but is not limited to clavicular fracture, shoulder dislocation, rotator cuff tear, humeral head dislocation, humeral head fracture. Based on these concerns, I ordered an imaging workup including x-rays. Patient received Tylenol for treatment. 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 In this patient's case the physical exam was extremely reassuring. He was able to flex his bicep with normal strength and flex his tricep with normal strength though both his movements were painful. Additionally he was able to adduct and abduct the shoulder. These movements were painful for him but he was able to indicating that the likelihood of a complete tear of any of the ligamentous or tendinous structures around the shoulder was unlikely. He has no warmth or erythema of the area and no infectious signs and so septic arthritis is extremely unlikely. His imaging workup is very reassuring. Based on his story I think it is most likely that he has a strain to one of the muscles of the shoulder or possibly to the rotator cuff. He reported significant improvement in his symptoms with Tylenol. He was placed in a sling for comfort. A plan was put in place for him to follow-up with the orthopedist outpatient, he is comfortable with this plan and verbalized understanding of return precautions. Critical Care Critical Care Time Critical Care Time: No
[2025-04-09] MEDS: ACETAMINOPHEN 500MG TAB 1000 MG PO (09:59)
--- NOTE | 2025-04-09 11:03 | PC.NURSE ---
DR ACKERMAN AT BEDSIDE TO UPDATE PT
== END 2025-04-09 11:10 | disposition home or self-care (01) ==
PROVIDERS: Emergency Provider Student in an Organized Health Care Education/Training Program; PCP Family Medicine
DX: M25.512 Pain in left shoulder (principal); W01.10XA Fall on same level from slipping, tripping and stumbling with subsequent striking against unspecified object, initial encounter
CPT/HCPCS: 73030; 73060; 73070; 99284

== ENCOUNTER 2025-07-16 13:00 | Outpatient (CLI) | payer MEDICARE, SELFPAY ==
[2025-07-16 14:33] LABS: Hematocrit 47.2 % (42.0-52.0); Hemoglobin 14.9 g/dL (14.1-18.0); Immature Granulocytes % 1.2 %; Mean Corpuscular HGB Conc 31.6 g/dL (31.8-35.4); Mean Corpuscular Hemoglobin 31.1 pg (27.0-31.2); Mean Corpuscular Volume 98.5 fl (80-94); Nucleated Red Blood Cells % 0 %; Platelet Count 242 K/mm3 (142-424); Red Blood Count 4.79 M/mm3 (4.60-6.20); Red Cell Distribution Width-SD 50.7 fL; White Blood Count 9.7 K/mm3 (4.8-10.8)
[2025-07-16 14:40] LABS: Albumin Level 3.7 g/dl (3.5-5.0); Chloride 104 mmol/L (98-107); Potassium 5.2 mmoL/L (3.5-5.1); Sodium 145 mmol/L (136-145)
[2025-07-16 14:42] LABS: Blood Urea Nitrogen 27 mg/dl (9-20); Creatinine,Serum 1.50 mg/dl (0.66-1.25); Estimated Glomerular Filt Rate 45 ml/min (>60); GFR (African American) 55 ML/MIN (>60)
[2025-07-16 14:43] LABS: Alanine Aminotransferase 35 U/L (12-78); Albumin/Globulin Ratio 1.5 (1.1-1.8); Alkaline Phosphatase 124 U/L (38-126); Anion Gap 12.2 mEq/L (5-15); Aspartate Amino Transferase 38 U/L (17-59); Bilirubin,Total 0.5 mg/dl (0.2-1.3); Calcium 9.3 mg/dl (8.4-10.2); Carbon Dioxide 34 mmol/L (22.0-30.0); Globulin 2.5 g/dL (1.3-3.2); Glucose 84 mg/dl (74-100); Total Protein,Serum 6.2 g/dl (6.3-8.2)
[2025-07-16 15:34] LABS: Hepatitis C Ab Qual. W/ RFX NEGATIVE (Negative)
[2025-07-17 06:04] LABS: Hepatitis B Surface Antigen Negative (Negative)
--- OUTSIDE RECORDS SUMMARY | 2025-07-17 09:43 | XMS_ITS | Referral Summary ---
Author Organization [employer] [facility] ([place], [place], [place], [place], [place]) Address [address] [place] [address] Care Team Providers Care Cement Loader Name Role Phone Unavailable Primary Care Provider [...]
--- OUTSIDE RECORDS SUMMARY | 2025-07-17 09:43 | XMS_ITS | Encounter Summary ---
Author Organization [employer] ([place], [place], [place], [place], [place]) Address [address] [place] [address] Care Team Providers Care Leather Stamper Name Role Phone Unavailable Primary Care Provider Unavailabl e Encounter Details Date Type Department Care Team (Late st Contact Info) Description 05/15/2021 Transcribed Document [facility] [place] [address] [place] [address] ProviderAbel MD [address] [place] [address] Social History Tobacco Use Types Packs/Day Years Used Date Smoking Tobacco: Never Assessed Sex and Gender Information Value Date Recorded Sex Assigned at Not on file Legal Sex Male 3:24 PM CDT Gender Identity Not on file Sexual Orientation Not on file documented as of this encounter Miscellaneous Notes * Cerner Conversion Note - Abel ProviderMD - 05/15/2021 10:42 AM CDT Meds to Bed Enrollment Entered On: 05/15/2021 11:27 EDT Performed On: 05/15/2021 10:42 EDT by [place] Hatchery Laborer Cert Lead Meds to Bed Enrollment Patient Enrollment Decision: : Yes/enroll in meds to bed program [place] [employer] Laborer Cert Lead - 05/15/2021 11:27 EDT documented in this encounter Plan of Treatment Not on file documented as of this encounter Visit Diagnoses Not on filedocumented in this encounter
--- OUTSIDE RECORDS SUMMARY | 2025-07-17 09:43 | XMS_ITS | Encounter Summary ---
Author Organization [employer] ([place], [place], [place], [place], [place]) Address [address] [place] [address] Care Team Providers Care Inside Sales Advertising Executive Name Role Phone Unavailable Primary Care Provider Unavailabl e Encounter Details Date Type Department Care Team (Late st Contact Info) Description 05/17/2021 Transcribed Document [facility] [place] [address] [place] [address] ProviderAbel MD [address] [place] [address] Social History Tobacco Use Types [...] EEG-video monitoring was performed using the 32-channel Appydrink monitoring system. The seizure detection computer was [...] 3 Hz delta waves are noted at S5-Q6-Hs2-F3 and O4-W9-Bg5-F4, overall more prominent in the latter. During sleep, well-formed sleep spindles were seen in both hemispheres. SPIKE DETECTION: The spike detection program was activated during the period of monitoring. Rare sharply contoured slow waves are noted at F8-T8. EEG DIAGNOSIS: This is an abnormal video EEG study because of: 1. Focal slow wave activity noted at G8-N3-Mr7-F3 and more prominently at X9-U1-Wj3-F4. 2. Intermittent slowing of the background. 3. [...] epileptogenicity in the right anterior temporal region. /[id number] MD HAYDEE Senior/ALANIS / HAYDEE / MODL /[id number] documented in this encounter Plan of Treatment Not on file documented as of this encounter Visit Diagnoses Not on filedocumented in this encounter
--- OUTSIDE RECORDS SUMMARY | 2025-07-17 09:43 | XMS_ITS | Encounter Summary ---
Author Organization [employer] ([place], [place], [place], [place], [place]) Address [address] [place] [address] Care Team Providers Care Hospital Carrier Name Role Phone Unavailable Primary Care Provider Unavailabl e Encounter Details Date Type Department Care Team (Late st Contact Info) Description 05/17/2021 Transcribed Document [facility] [place] [address] [place] [address] ProviderAbel MD [address] [place] [address] Social History Tobacco Use Types Packs/Day Years Used Date Smoking Tobacco: Never Assessed Sex and Gender Information Value Date Recorded Sex Assigned at Not on file Legal Sex Male 3:24 PM CDT Gender Identity Not on file Sexual Orientation Not on file documented as of this encounter Miscellaneous Notes * Cerner Conversion Note - Historical ProviderMD - 05/17/2021 10:58 AM CDT Stroke/Warfarin [...]
--- OUTSIDE RECORDS SUMMARY | 2025-07-17 09:43 | XMS_ITS | Encounter Summary ---
Author Organization [employer] ([place], [place], [place], [place], [place]) Address [address] [place] [address] Care Team Providers Care Soybean Grower Name Role Phone Unavailable Primary Care Provider Unavailabl e Encounter Details Date Type Department Care Team (Late st Contact Info) Description 05/15/2021 Transcribed Document [facility] [place] [address] [place] [address] ProviderAbel MD [address] [place] [address] Social History Tobacco Use Types Packs/Day Years Used Date Smoking Tobacco: Never Assessed Sex and Gender Information Value Date Recorded Sex Assigned at Not on file Legal Sex Male 3:24 PM CDT Gender Identity Not on file Sexual Orientation Not on file documented as of this encounter Miscellaneous Notes * Cerner Conversion Note - Historical ProviderMD - 05/15/2021 11:23 AM CDT Education-(VTE) / [...]
--- OUTSIDE RECORDS SUMMARY | 2025-07-17 09:43 | XMS_ITS | Encounter Summary ---
Author Organization [employer] ([place], [place], [place], [place], [place]) Address [address] [place] [address] Care Team Providers Care Tip Finisher Name Role Phone Unavailable Primary Care Provider Unavailabl e Encounter Details Date Type Department Care Team (Late st Contact Info) Description 05/17/2021 Transcribed Document [facility] [place] [address] [place] [address] ProviderAbel MD [address] [place] [address] Social History Tobacco Use Types [...] Tafoya MD - 05/17/2021 10:59 AM CDT [facility] [address] JOSIANE COBURN JR :1945 Visit Time:05/15/2021 Your Visit Summary Your Care Team Admitting Physician - CONCEPCION DOE MD-NEU Attending Physician - CONCEPCION DOE MD-NEU Primary Care Physician - ALEXIA LEWIS DR Referring Physician - JOSHUA, SELF REFERRED Your [...] up appointment Where: [address] [place] [address] [facility] (1) Medications What How Much When [...] of your total treatment plan. ??? Take ejav-upg-[id number] and prescription medicines only as told by [...] more information ??? Epilepsy Foundation: www.epilepsy.com ??? [place] Epile[employer] Society: www.aesnet.org Contact a health care [...] Assistance with quitting is available by contacting 9-659-RFZY-NOW. This is a free resource providing counseling, support, and referral. Or you may contact your personal physician. [place] Suicide Prevention Lifeline: The National Suicide Prevention [...] was given the opportunity to ask questions. Patient/Bull Bucker Name: Patient/Bull Bucker Signature: Relationship to Patient: Clinician/Hospital Bull Bucker Signature: Date: documented in this encounter Plan of Treatment Not on file documented as of this encounter Visit Diagnoses Not on filedocumented in this encounter
--- OUTSIDE RECORDS SUMMARY | 2025-07-17 09:43 | XMS_ITS | Encounter Summary ---
Author Organization [employer] ([place], [place], [place], [place], [place]) Address [address] [place] [address] Care Team Providers Care Finisher Card Tender Name Role Phone Unavailable Primary Care Provider Unavailabl e Encounter Details Date Type Department Care Team (Late st Contact Info) Description 05/17/2021 Transcribed Document [facility] [place] [address] [place] [address] ProviderAbel MD [address] [place] [address] Social History Tobacco Use Types [...] EEG-video monitoring was performed using the 32-channel REH monitoring system. The seizure detection computer was [...] noted suggestive of mild diffuse cerebral dysfunction. /[id number] MD HAYDEE Senior/AQ / TAF / MODL /[id number] documented in this encounter Plan of Treatment Not on file documented as of this encounter Visit Diagnoses Not on filedocumented in this encounter
--- OUTSIDE RECORDS SUMMARY | 2025-07-17 09:43 | XMS_ITS | Encounter Summary ---
Author Organization [employer] ([place], [place], [place], [place], [place]) Address [address] [place] [address] Care Team Providers Care Industrial X Ray Operator Name Role Phone Unavailable Primary Care Provider Unavailabl e Encounter Details Date Type Department Care Team (Late st Contact Info) Description 05/15/[address] [facility] [place] [address] [place] [address] ProviderAbel MD [address] [place] [address] Social History Tobacco Use Types [...] and . They are active in their caodaism. ANEUDY ADAMS - 05/15/2021 15:52 EDT documented in this encounter Plan of Treatment Not on file documented as of this encounter Visit Diagnoses Not on filedocumented in this encounter
--- OUTSIDE RECORDS SUMMARY | 2025-07-17 09:43 | XMS_ITS | Encounter Summary ---
Author Organization [employer] ([place], [place], [place], [place], [place]) Address [address] [place] [address] Care Team Providers Care Sociology Instructor Name Role Phone Unavailable Primary Care Provider Unavailabl e Encounter Details Date Type Department Care Team (Late st Contact Info) Description 05/16/2021 Transcribed Document [facility] [place] [address] [place] [address] ProviderAbel MD [address] [place] [address] Social History Tobacco Use Types [...] At risk for sleep apnea / IMO [id number] / Confirmed, Active Problems (7) At risk [...] EDT Height Source Stated Height Entry Format [place] Height/Length, MEXICAN (ft) 5 ft Height/Length [place] 8 Inch CLINICALHEIGHT 172.72 cm [place] Body Weight 67 kg Weight Source Bed scale Weight Entry Format [place] Weight [place] lb 190 lb CLINICALWEIGHT 86.36 kg Body [...] No [x ] Electronically signed by Christa [facility] Conversion Recreation Leader Cerner at 11/01/2022 2:35 PM CDT documented in this encounter Plan of Treatment Not on file documented as of this encounter Visit Diagnoses Not on filedocumented in this encounter
--- OUTSIDE RECORDS SUMMARY | 2025-07-17 09:43 | XMS_ITS | Encounter Summary ---
Author Organization [employer] ([place], [place], [place], [place], [place]) Address [address] [place] [address] Care Team Providers Care Cardroom Drawing Runner Name Role Phone Unavailable Primary Care Provider Unavailabl e Encounter Details Date Type Department Care Team (Late st Contact Info) Description 05/15/2021 Transcribed Document [facility] [place] Family Medicine [place] [address] ProviderAbel MD [address] [place] [address] Social History Tobacco Use Types [...] #2 Relationship : n Primary Language : Ukrainian Communication Barrier : None Client Services Representative Needed : No Cayla Ariza RN-PATIENT CARE [...] Scale Risk Level : 25-45 Medium Risk Monitor Fall Interventions : Adequate lighting, Assistive devices [...] Source : Stated Height Entry Format : [place] Height, Feet : 5 ft(Converted to: 152 cm, 60 Inch) Height, Inches : 8 Inch(Converted to: 0 ft 8 Inch, 20.32 cm) Clinical Height : 172.72 cm Weight Source : Bed scale Weight Entry Format : [place] Clinical Dosing Weight : 86.36 kg Weight, Pounds : 190 lb Body Surface Area (BSA) : 2 m2 Body Mass Index : 28.9 kg/m2 (HI) Steele Body Weight : 67 kg Cayla Ariza [...] Season : Yes Cayla Ariza RN-PATIENT CARE [facility] NON-EXEMPT - 05/15/2021 13:51 EDT Pneumococcal Vaccine [...] Crushed/Liquid : No Cayla Ariza RN-PATIENT CARE [facility] NON-EXEMPT - 05/15/2021 13:51 EDT Nutrition History Eating Poorly Due to Decreased Appetite : No Unplanned Weight Loss in Past 3-6 Months : No Malnutrition Screening Tool Total(mal) : 0 Malnutrition Screening Tool Risk Level : Patient not at risk Cayla Ariza RN-PATIENT CARE [facility] NON-EXEMPT - 05/15/2021 13:51 EDT [place] Suicide Severity Rating Scale (C-SSRS) CSSRS Past Month Wish to be : No CSSRS Past Month Suicidal Thoughts : No CSSRS Lifetime Suicide Behavior : No Suicide Severity Rating Score : 0 Suicide Severity Rating : No Additional Care Required at this time Cayla Ariza RN-PATIENT CARE [facility] NON-EXEMPT - 05/15/2021 13:51 EDT Psychosocial History Currently in Unsafe Situation : No Cayla Ariza RN-PATIENT CARE [facility] NON-EXEMPT - 05/15/2021 13:51 EDT Sleep Apnea [...] CARE BEDSIDE NON-EXEMPT - 05/15/2021 13:51 EDT documented in this encounter Plan of Treatment Not on file documented as of this encounter Visit Diagnoses Not on filedocumented in this encounter
--- OUTSIDE RECORDS SUMMARY | 2025-07-17 09:43 | XMS_ITS | Encounter Summary ---
Author Organization [employer] ([place], [place], [place], [place], [place]) Address [address] [place] [address] Care Team Providers Care Brick Yard Hand Name Role Phone Unavailable Primary Care Provider Unavailabl e Encounter Details Date Type Department Care Team (Late st Contact Info) Description 05/16/[address] [facility] [place] Family Medicine [address] [place] [address] ProviderAbel MD [address] [place] [address] Social History Tobacco Use Types [...] EEG-video monitoring was performed using the 32-channel [employer] monitoring system. The seizure detection computer was [...] The event button is pushed by the robotics technologist after the patient has body jerks. [...] cerebral dysfunction in the anterior temporal regions. /[id number] MD HAYDEE Senior/ALANIS / HAYDEE / MODL /[id number] Electronically signed by Christa, [facility] Conversion Brush Cutter Cerner at 11/01/2022 2:12 PM CDT documented in this encounter Plan of Treatment Not on file documented as of this encounter Visit Diagnoses Not on filedocumented in this encounter
--- OUTSIDE RECORDS SUMMARY | 2025-07-17 09:43 | XMS_ITS | Encounter Summary ---
Author Organization [employer] ([place], [place], [place], [place], [place]) Address [address] [place] [address] Care Team Providers Care Production Drilling Machine Operator Name Role Phone Unavailable Primary Care Provider Unavailabl e Encounter Details Date Type Department Care Team (Late st Contact Info) Description 05/16/2021 Transcribed Document [facility] [place] [address] [place] [address] ProviderAbel MD [address] [place] [address] Social History Tobacco Use Types [...] Insurance 1 Health Plan: MEDICARE Policy Number: [id number] Authorization Number: Insurance Primary Name : MEDICARE Authorized Service Begin Date-Primary : 05/15/2021 EDT Historical Authorization Comments-Primary : No Authorization Comments Found Catie Mary Rn-Utilization Review - 05/16/2021 12:35 EDT documented in this encounter Plan of Treatment Not on file documented as of this encounter Visit Diagnoses Not on filedocumented in this encounter
--- OUTSIDE RECORDS SUMMARY | 2025-07-17 09:43 | XMS_ITS | Encounter Summary ---
Author Organization [employer] ([place], [place], [place], [place], [place]) Address [address] [place] [address] Care Team Providers Care Butcher Chicken And Fish Name Role Phone Unavailable Primary Care Provider Unavailabl e Encounter Details Date Type Department Care Team (Late st Contact Info) Description 05/15/2021 Transcribed Document [facility] [place] [address] [place] [address] ProviderAbel MD [address] [place] [address] Social History Tobacco Use Types [...] DATE OF ADMISSION: 05/15/2021 ADMITTING PHYSICIAN: CONCEPCION DOE MD REASON FOR ADMISSION: Recurrent seizures. HISTORY [...] the upper and lower extremities. Coordination: Normal fhkvxj-st-gjrl. IMPRESSION: Mr. Coburn has had recurrent fairly [...] or prolonged seizures. 5. Continue home medications. /[id number] Toufic A Esperanza, MD TAF/AQ / TAF / MODL documented in this encounter Plan of Treatment Not on file documented as of this encounter Visit Diagnoses Not on filedocumented in this encounter
--- OUTSIDE RECORDS SUMMARY | 2025-07-17 09:44 | XMS_ITS | Encounter Summary ---
Author Organization [facility] ([place], [place], [place], [place], [place]) Address [address] [place] [address] Care Team Providers Care Banquet Food Server Name Role Phone Unavailable Primary Care Provider Unavailabl e Encounter Details Date Type Department Care Team (Late st Contact Info) Description 05/17/2021 Transcribed Document [facility] [place] [address] [place] [address] ProviderAbel MD [address] [place] [address] Social History Tobacco Use Types [...] Normal cranial nerves. Normal motor exam. Normal eruoiq-pj-nfxp. DISCHARGE INSTRUCTIONS: 1. No driving. 2. Aspirin [...] up with Dr. Lamb within 2 months. /[id number] MD HAYDEE Senior/AQ / HAYDEE / MODL /[id number] documented in this encounter Plan of Treatment Not on file documented as of this encounter Visit Diagnoses Not on filedocumented in this encounter
--- OUTSIDE RECORDS SUMMARY | 2025-07-17 09:44 | XMS_ITS | Clinical Summary ---
Author Organization [employer] [facility] ([place], [place], [place], [place], [place]) Address [address] [place] [address] Care Team Providers Care Professor Of Latin American Studies Name Role Phone Unavailable Primary Care Provider [...]
--- OUTSIDE RECORDS SUMMARY | 2025-07-17 09:44 | XMS_ITS | Clinical Summary ---
Author Organization [facility] Address [address] [place] [phone] Phone Care Team Providers Care Director Of Social Services Name Role Phone Unavailable Primary Care Provider [...]
--- OUTSIDE RECORDS SUMMARY | 2025-07-17 09:44 | XMS_ITS | Encounter Summary ---
Author Organization [employer] ([place], [place], [place], [place], [place]) Address [address] [place] [address] Care Team Providers Care Solar Pv Installer Name Role Phone Unavailable Primary Care Provider Unavailabl e Encounter Details Date Type Department Care Team (Late st Contact Info) Description 05/17/2021 Transcribed Document [facility] [place] Family Medicine [address] [place] [address] ProviderAbel MD [address] [place] [address] Social History Tobacco Use Types [...] of your total treatment plan. ??? Take lbwl-apr-snlsptb and prescription medicines only as told by [...] more information ??? Epilepsy Foundation: www.epilepsy.com ??? [place] Epilepsy Society: www.aesnet.org Contact a health care [...] provider. Document Revised: 07/16/2019 Document Reviewed: 02/28/2018 [employer] Patient Education ? 2020 [employer] documented in this encounter Plan of Treatment Not on file documented as of this encounter Visit Diagnoses Not on filedocumented in this encounter
--- OUTSIDE RECORDS SUMMARY | 2025-07-17 09:44 | XMS_ITS | Encounter Summary ---
Author Organization [employer] ([place], [place], [place], [place], [place]) Address [address] [place] [address] Care Team Providers Care Senior Microsoft Consultant Name Role Phone Unavailable Primary Care Provider Unavailabl e Encounter Details Date Type Department Care Team (Late st Contact Info) Description 05/17/[address] [facility] [place] Family Medicine [address] [place] [address] ProviderAbel MD [address] [place] [address] Social History Tobacco Use Types [...] Tafoya MD - 05/17/2021 10:33 AM CDT [address] , [place] [address] Patient Copy Patient Information: Name: RODRIGO JR JOSIANE D Current Date: 05/17/2021 10:33:22 : 1945 Patient Address: [address] [id number] Patient Attending Physician: CONCEPCION DOE MD-TRACEY Primary Care Provider: ALEXIA LEWIS DR Primary Care Provider Discharge Diagnosis: Nonepileptic episode Weight on Admission: 190 lb, 0 oz Comment: Follow-up Instructions: With: Address: When: Ce Lamb [address] [place] [address] Business (1) Within 2 months Discharge Instructions: [...] Assistance with quitting is available by contacting 8-197-IFZD-NOW. This is a free resource providing counseling, [...] Be sure to sign up for the [employer] patient portal, which gives you 07/02 access to your medical information ??? including these discharge instructions ??? using your computer, smartphone, or tablet. Just go to [email or web address] to get started. Questions? Call . [facility] would like to thank you for allowing us to assist you with your healthcare needs. I, RODRIGO HERNANDEZ, JOSIANE May, (or medical representative) have received the above patient education materials/instructions and have verbalized understanding: Patient Signature _ Date/Time Patient Software Deployment Engineer Signature (if needed) Date/Time Clinician/Hospital Software Deployment Engineer Signature (if needed) Date/Time Electronically signed by Christa, [facility] Conversion Outside Solar Sales Consultant Cheikhner at 11/01/2022 2:32 PM CDT documented in this encounter Plan of Treatment Not on file documented as of this encounter Visit Diagnoses Not on filedocumented in this encounter
--- OUTSIDE RECORDS SUMMARY | 2025-07-17 09:44 | XMS_ITS | Encounter Summary ---
Author Organization [employer] ([place], [place], [place], [place], [place]) Address [address] [place] [address] Care Team Providers Care Loan Reviewer Name Role Phone Unavailable Primary Care Provider Unavailabl e Encounter Details Date Type Department Care Team (Late st Contact Info) Description 05/17/2021 Transcribed Document [facility] [place] Medicine [address] [place] [address] ProviderAbel MD [address] [place] [address] Social History Tobacco Use Types Packs/Day Years Used Date Smoking Tobacco: Never Assessed Sex and Gender Information Value Date Recorded Sex Assigned at Not on file Legal Sex Male 3:24 PM CDT Gender Identity Not on file Sexual Orientation Not on file documented as of this encounter Miscellaneous Notes * Cerner Conversion Note - Historical ProviderMD - 05/17/2021 10:58 AM CDT Nursing [...] materials Teaching Evaluation : Verbalizes understanding Cayla Ariza, RN-PATIENT CARE BEDSIDE NON-EXEMPT - 05/17/2021 10:58 EDT Electronically signed by Christa [facility] Conversion Agronomy Teacher Cerner at 11/01/2022 2:34 PM CDT documented in this encounter Plan of Treatment Not on file documented as of this encounter Visit Diagnoses Not on filedocumented in this encounter
== END 2025-07-16 23:59 | disposition home or self-care (01) ==
LOC: LAB.DROPOF 07-17 09:42
PROVIDERS: PCP Family Medicine; Visit Provider Family Medicine
DX: J45.909 Unspecified asthma, uncomplicated (principal); Z11.59 Encounter for screening for other viral diseases; E11.8 Type 2 diabetes mellitus with unspecified complications
CPT/HCPCS: 80053; 85025; 86803; 87340; 87389